=== PATIENT | male | born 1945 | race Caucasian/White ===

== ENCOUNTER 2017-05-05 11:23 | Observation (INO) | payer MEDICARE, BC ==
[2017-05-05] MEDS ORDERED: Heparin 2 UNITS/ML IVPREMIX* 2,000 ML IV ONE (12:44)
[2017-05-05] MEDS ORDERED: Iodixanol* (CONTRAST) 320 MG/ML 100 ML SDV ONE (12:45)
[2017-05-05] MEDS ORDERED: Lidocaine 1% INJ* 10 MG/ML 30 ML SDV ONE (12:46)
[2017-05-05] MEDS ORDERED: fentaNYL* 50 MCG/ML 2 ML VIAL (100 MCG VIAL) ONE ×3 (13:13→16:21)
[2017-05-05] MEDS ORDERED: Naloxone* 0.4 MG/ML 1 ML VIAL ONE (13:13)
[2017-05-05] MEDS ORDERED: Midazolam* 1 MG/ML 5 ML VIAL (5 MG) ONE (13:13)
[2017-05-05] MEDS ORDERED: Heparin(*) 1000 UNIT/ML 10 ML VIAL CATH LAB IV ONE (13:13)
[2017-05-05] MEDS ORDERED: Flumazenil* 0.1 MG/ML 5 ML MDV ONE (13:13)
[2017-05-05] MEDS ORDERED: nitroGLYCERIN DRIP* 250 ML ONE (15:05)
[2017-05-05] MEDS ORDERED: Heparin 2 UNITS/ML IVPREMIX* 1,000 ML IV ONE (16:05)
[2017-05-05] MEDS ORDERED: NS 0.9% 1000 ML* 1,000 ML IV SCH (17:00)
[2017-05-05] MEDS ORDERED: oxyCODONE/Acetamin 5/325 MG* TAB PO PRN (17:02)
[2017-05-05] MEDS ORDERED: Acetaminophen TAB* 325 MG PO PRN (17:02)
[2017-05-05] MEDS ORDERED: Ondansetron TAB* 4 MG PO PRN (17:06)
[2017-05-05] MEDS ORDERED: Hydrocortisone 1% CREAM* 30 GM TUBE TOPICAL PRN (17:06)
[2017-05-05] MEDS ORDERED: Senna TAB PO PRN (17:06)
[2017-05-05] MEDS ORDERED: ALPRAZolam TAB* 0.25 MG PO PRN (17:06)
[2017-05-05] MEDS ORDERED: Docusate CAP* 100 MG PO PRN (17:06)
[2017-05-05] MEDS ORDERED: oxyCODONE/Acetamin 5/325 MG* TAB ONE (17:33)
[2017-05-05] MEDS ORDERED: oxyCODONE TAB* 5 MG TAB PO SCH (21:00)
[2017-05-05] MEDS: Magnesium Oxide TAB* 400 MG PO SCH (21:17)
[2017-05-05] MEDS: DOXYcycline CAP(*) 100 MG PO SCH (21:17)
[2017-05-05] MEDS: diPHENhydraMINE PO* 25 MG PO SCH (21:18)
[2017-05-05] MEDS: Metoprolol Tartrate TAB* 25 MG PO SCH (21:18)
[2017-05-06 06:59] LABS: BUN/Creatinine Ratio 21.1 (8-20); Blood Urea Nitrogen 23 mg/dL (6-24); CO2 Carbon Dioxide 21 mmol/L (22-32); Calcium 8.6 mg/dL (8.6-10.3); Chloride 105 mmol/L (101-111); EGFR African American 85.3 (>60); EGFR Non-African American 66.3 (>60); Glucose 144 mg/dL (70-100); Sodium 133 mmol/L (133-145)
[2017-05-06 07:09] LABS: Anion Gap 7 mmol/L (2-11)
[2017-05-06] MEDS ORDERED: Omeprazole CAP* 20 MG PO SCH (07:30)
[2017-05-06 08:03] VITALS: BP 117/63
[2017-05-06 08:39] LABS: Hematocrit 36 % (42-52); Hemoglobin 11.8 g/dl (14.0-18.0); Mean Corpuscular HGB Conc 33 g/dl (31-36); Mean Corpuscular Hemoglobin 33 pg (27-31); Mean Corpuscular Volume 100 fL (80-94); Mean Platelet Volume 8 um3 (7.4-10.4); Red Blood Count 3.61 10^6/ul (4.0-5.4); Red Cell Distribution Width 15 % (10.5-15); White Blood Count 9.9 10^3/ul (3.5-10.8)
[2017-05-06] MEDS: diPHENhydraMINE PO* 25 MG PO SCH (08:59)
[2017-05-06] MEDS: Metoprolol Tartrate TAB* 25 MG PO SCH (08:59)
[2017-05-06] MEDS: DOXYcycline CAP(*) 100 MG PO SCH (08:59)
[2017-05-06] MEDS: Magnesium Oxide TAB* 400 MG PO SCH (08:59)
[2017-05-06] MEDS ORDERED: Aspirin Low Dose CHEW TAB* 81 MG PO SCH (09:00)
[2017-05-06] MEDS ORDERED: Losartan TAB* 25 MG PO SCH (09:00)
[2017-05-06] MEDS ORDERED: CMCS:SitaGLIPtin (NF) 25 MG TAB PO SCH (09:00)
[2017-05-06] MEDS ORDERED: Furosemide TAB* 20 MG PO SCH (09:00)
[2017-05-06] MEDS ORDERED: Ferrous Sulfate TAB* 325 MG PO SCH (09:00)
[2017-05-06] MEDS ORDERED: Potassium Chlor TAB* 10 MEQ TAB.ER PO SCH (09:00)
[2017-05-06] MEDS ORDERED: Rivaroxaban TAB(*) 20 MG TAB PO SCH (12:00)
--- NOTE | 2017-05-06 12:13 | DS ---
CC: Dr. Sepulveda, [facility] * DATE OF ADMISSION: 05/05/2017. DATE OF DISCHARGE: 05/06/2017. PRIMARY CARE PHYSICIAN: Dr. Sepulveda. DISCHARGE DIAGNOSES: 1. 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 2. Diabetes type 2. 3. Obesity. 4. Peripheral neuropathy. 5. Chronic venous insufficiency. 6. Hypertension. 7. Status post aortic valve replacement. DISCHARGE MEDICATIONS: Prehospital admission medications were all continued. 1. Xanax 0.25 t.i.d. prn. 2. Tylenol 650 q.4 prn. 3. Aspirin 81 mg daily. 4. Doxycycline 100 mg b.i.d. to complete his course. 5. Colace. 6. Iron 325 daily. 7. Lasix 40 mg daily. 8. Hydrocortisone topical. 9. Cozaar 25 daily. 10. Magnesium 400 b.i.d. 11. Metoprolol 25 b.i.d. 12. Omeprazole 40 mg daily. 13. Zofran 4 mg q.8 prn. 14. Potassium 20 mEq daily. 15. Rivaroxaban 20 mg daily. 16. Senna two tabs daily prn. 17. Januvia 50 mg daily. 18. Benadryl 25 mg b.i.d. 19. Oxycodone prn. PROCEDURE: Left leg antegrade puncture with left lower extremity angiography and attempt at angioplasty, unsuccessful due to inability to cross the pedal loop. CONDITION ON DISCHARGE: Stable. ACTIVITY: No heavy lifting for one day. WOUND CARE: Shower only for three days. FOLLOW-UP: Follow-up visit with me on May 13 at 1400, medical office building. HISTORY: See outpatient history and physical. LABORATORY DATA: Creatinine preprocedure was 1.21, at his baseline. Electrolytes normal. Postprocedure creatinine today 1.09. CBC on the : Hemoglobin 13.3, postprocedure 11.8; platelet count is normal. HOSPITAL COURSE: He underwent angiography via the left antegrade femoral approach. Access was obtained with ultrasound and a Doppler needle. It required fairly extensive retraction of his pannus. Angiography demonstrated an occlusion of the distal posterior tibial and an incomplete pedal loop with poor filling of the medial and lateral plantar branches. I attempted to revascularize the pedal loop antegrade with a number of wires and a micro catheter, it was unsuccessful due to inability to cross the pedal loop, and was accompanied by dissection of small distal branches, without occlusion. I also attempted to cross the unfavorable proximal cap of the distal posterior tibial occlusion resulting in perforation and a stain. Revascularization of the plantar was therefore unsuccessful. I will send his films to Dr. Ruiz in [place] for review for potential reattempt at revascularization. He has a nonhealing wound left second toe with MR evidence of osteomyelitis. The concern is that he will not heal the wound, and/or amputation site. [id number]/[facility] #: [id number] [facility]
== END 2017-05-06 12:10 ==
LOC: CHICATH 11:23 → SSU 17:00
PROVIDERS: ADMIT Internal Medicine Cardiovascular Disease; ATTEND Internal Medicine Cardiovascular Disease
DX: I70.245 Atherosclerosis of native arteries of left leg with ulceration of other part of foot (principal); L97.529 Non-pressure chronic ulcer of other part of left foot with unspecified severity; E11.42 Type 2 diabetes mellitus with diabetic polyneuropathy; Z79.4 Long term (current) use of insulin; E66.9 Obesity, unspecified; I87.2 Venous insufficiency (chronic) (peripheral); I10 Essential (primary) hypertension; Z95.2 Presence of prosthetic heart valve; Z79.899 Other long term (current) drug therapy; Z88.1 Allergy status to other antibiotic agents; Z79.01 Long term (current) use of anticoagulants
CPT/HCPCS: 36415; 76937; 80048; 85025; 96360; 96361; A9270-GY; C1725; C1769; C1887; C1894; G0278; G0378; J1644; J2001; J2250; J2310; J3010

== ENCOUNTER 2017-09-30 22:42 | Observation (INO) | payer MEDICARE, BC, OTHER ==
[2017-09-30] MEDS ORDERED: NS 0.9% 1000 ML* 1,000 ML IV ONE (22:56)
[2017-09-30] MEDS ORDERED: Aspirin Low Dose CHEW TAB* 81 MG PO ONE (22:56)
[2017-09-30] MEDS ORDERED: NS 0.9% 1000 ML* 1,000 ML IV SCH ×2 (23:00→23:48)
[2017-09-30 23:25] LABS: Hematocrit 38 % (42-52); Hemoglobin 12.5 g/dl (14.0-18.0); Mean Corpuscular HGB Conc 33 g/dl (31-36); Mean Corpuscular Hemoglobin 32 pg (27-31); Mean Corpuscular Volume 97 fL (80-94); Mean Platelet Volume 8 um3 (7.4-10.4); Red Cell Distribution Width 15 % (10.5-15); White Blood Count 9.4 10^3/ul (3.5-10.8)
[2017-09-30 23:40] LABS: Albumin 3.7 g/dL (3.2-5.2); Calcium 9.5 mg/dL (8.6-10.3); EGFR African American 66.4 (>60); EGFR Non-African American 51.7 (>60); Globulin 3.9 g/dL (2-4); HDL Cholesterol 28.8 mg/dL; Total Bilirubin 0.4 mg/dL (0.2-1.0); Total Protein 7.6 g/dL (6.4-8.9)
[2017-09-30 23:41] LABS: Troponin I 0.03 ng/mL (<0.04)
[2017-10-01 00:17] LABS: Urine Bilirubin Negative (Negative); Urine Glucose Negative (Negative); Urine Nitrite Negative (Negative)
[2017-10-01 00:23] LABS: Potassium 4.2 mmol/L (3.5-5.0)
[2017-10-01] MEDS ORDERED: Dextrose 50% Syringe 50 ML* 25 GM/50 ML SYRINGE IV PUSH PRN (01:29)
[2017-10-01] MEDS ORDERED: NS 0.9% 1000 ML* 1,000 ML IV SCH (01:30)
[2017-10-01] MEDS ORDERED: Senna TAB PO PRN (01:30)
[2017-10-01] MEDS ORDERED: oxyCODONE TAB* 5 MG TAB PO PRN (01:30)
[2017-10-01] MEDS ORDERED: Morphine INJ* 2 MG/ML 1 ML SYRINGE (TWO MG - NEW SYRINGE VERSION) IV PRN (01:40)
[2017-10-01] MEDS ORDERED: Acetaminophen TAB* 325 MG PO PRN (01:40)
[2017-10-01 01:57] LABS: C Reactive Protein 42.75 mg/L (< 5.00)
[2017-10-01] MEDS ORDERED: Triamcinolone 0.5% OINT * 15 GM TUBE TOPICAL PRN (02:00)
[2017-10-01 03:58] LABS: Hematocrit 36 % (42-52); Hemoglobin 11.5 g/dl (14.0-18.0); Mean Corpuscular HGB Conc 32 g/dl (31-36); Mean Corpuscular Hemoglobin 32 pg (27-31); Mean Corpuscular Volume 99 fL (80-94); Mean Platelet Volume 8 um3 (7.4-10.4); Red Blood Count 3.61 10^6/ul (4.0-5.4); Red Cell Distribution Width 15 % (10.5-15); White Blood Count 8.5 10^3/ul (3.5-10.8)
[2017-10-01 04:11] LABS: BUN/Creatinine Ratio 21.1 (8-20); Calcium 9.1 mg/dL (8.6-10.3); EGFR Non-African American 57.5 (>60); HDL Cholesterol 26.9 mg/dL; Potassium 4.4 mmol/L (3.5-5.0)
--- NOTE | 2017-10-01 04:37 | ED ---
Rachel Pierson Edward, scribed for Dick Blanchard MD on 09/30/17 at 2248 . Neurological HPI - HPI Summary HPI Summary: 72 male BIBA c/o sudden onset L arm numbness at 22:10 tonight. The symptoms started after the pt did some work. He was sitting down, then stood up and experienced the L arm numbness. Associated sx: later the pt c/o slurred speech. Currently the pt's symptoms have resolved - he states his arm is feeling better and his speech is also no longer slurred. PMHx AFIB, DM, aortic stenosis. Pt is on Xarelto. Sx aortic valve replacement. - History of Current Complaint Stated Complaint: STROKE LIKE SYMPTOMS Hx Obtained From: Patient Onset/Duration: Sudden Onset, Started hours ago Current Severity: None Neurological Deficit Location: LUE Aggravating: Nothing Alleviating: Nothing Associated Signs and Symptoms: Positive: Impaired Speech - Additional Pertinent History Primary Care Physician: [id number] - Allergy/Home Medications Allergies/Adverse Reactions: Allergies Allergy/AdvReac Type Severity Reaction Status Date / Time Levofloxacin [From Levaquin] Allergy Unknown Verified 02/25/17 10:22 Reaction Details Home Medications: Home Medications Furosemide TAB* [Lasix TAB*] 80 mg PO SEE INSTRUCTIONS 10/01/17 [History Confirmed 10/01/17] Triamcinolone 0.5% CREAM(NF) [Triamcinolone 0.5% CREAM*] 1 applic TOPICAL QID [History Confirmed 10/01/17] metFORMIN* [Glucophage 1000 MG TAB *] 1,000 mg PO BID 10/01/17 [History Confirmed 10/01/17] PMH/Surg Hx/FS Hx/Imm Hx Previously Healthy: No Endocrine/Hematology History: Reports: Hx Diabetes - TYPE 2 Denies: Hx Anticoagulant Therapy, Hx Blood Disorders, Hx Blood Transfusions, Hx Bone Marrow Disease, Hx Systemic Lupus Erythematosus, Hx Sickle Cell Disease , Hx Thyroid Disease, Hx Anemia, Hx Unexplained Bleeding, Other Endocrine/ Hematological Disorders Cardiovascular History: Reports: Hx Deep Vein Thrombosis - 2001, Hx Hypertension - ON MED, Other Cardiovascular Problems/Disorders - CHF, ATRIAL FLUTTER, SEVERE AORTIC STENOSIS-SEES DR. GRAHAM Denies: Hx Aneurysm, Hx Angina, Hx Angioplasty, Hx Auto Implanted Cardiovert Defib, Hx Cardiac Arrest, Hx Cardiomegaly, Hx Congenital Heart Disease, Hx Congestive Heart Failure, Hx Coronary Artery Disease, Hx Embolism, Hx Hypercholesterolemia, Hx Hypotension, Hx Pacemaker/ICD, Hx Peripheral Vascular Disease, Hx Rheumatic Fever, Hx Syncope, Hx Valvular Heart Disease Respiratory History: Reports: Hx Pneumonia, Hx Pulmonary Edema - APRIL 2015, Other Respiratory Problems/Disorders - SEPSIS / PNEUMONIA-APRIL 2015 Denies: Hx Asthma, Hx Chronic Bronchitis, Hx Chronic Obstructive Pulmonary Disease (COPD), Hx Cystic Fibrosis, Hx Lung Cancer, Hx Pleural Effusion, Hx Pulmonary Embolism, Hx Seasonal Allergies, Hx Sleep Apnea GI History: Denies: Hx Cirrhosis, Hx Crohn's Disease, Hx Diverticulosis, Hx Gall Bladder Disease, Hx Gastroesophageal Reflux Disease, Hx Gastrointestinal Bleed, Hx Hiatal Hernia, Hx Irritable Bowel, Hx Jaundice, Hx Obstructive Bowel, Hx Ileostomy, Hx Pyloric Stenosis, Hx Ulcer, Other GI Disorders History: Reports: Hx Acute Renal Failure, Hx Kidney Stones - LEFT SIDE- CURRENTLY-NOT BOTHERING HIM, Hx Renal Disease - KIDNEY STONES Denies: Hx Benign Prostatic Hyperplasia, Hx Chronic Renal Failure, Hx Dialysis, Hx Kidney Infection, Other Problems/Disorders Musculoskeletal History: Reports: Hx Arthritis - BILAT HIP REPLACEMENT/RIGHT NEEDS TO BE REDONE, Hx Back Problems - chronic back pain Denies: Hx Bursitis, Hx Congenital Bone Abnormalities, Hx Fibromyalgia, Hx Gout, Hx Orthopedic Injury, Hx Osteoporosis, Hx Scoliosis, Hx Tendonitis, Other Musculoskeletal History Sensory History: Reports: Hx Cataracts - BILAT., Hx Contacts or Glasses - GLASSES, Hx Macular Degeneration, Hx Vision Problem, Other Sensory Impairments - 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 Denies: Hx Dementia, Hx Developmental Delay, Hx Headaches, Hx Migraine, Hx Nerve Disease, Hx Seizures, Hx Transient Ischemic Attacks (TIA) Psychiatric History: Denies: Hx Anxiety, Hx Attention Deficit Hyperactivity Disorder, Hx Eating Disorder, Hx Depression, Hx Panic Disorder, Hx Post Traumatic Stress Disorder, Hx Inpatient Treatment, Hx Community Mental Health Tx, Hx Schizophrenia, Hx Bipolar Disorder, Hx Suicide Attempt, Hx of Violent Episodes Against Others, Hx Substance Abuse, Other Psychiatric Issues/Disorders - Surgical History Surgery Procedure, Year, and Place: Bilateral hip replacement 2001, 2002. HEART VALVE REPLACEMENT- TRIFECTA TISSUE HEART VALVE Hx Anesthesia Reactions: No Infectious Disease History: Denies: Hx Clostridium Difficile, Hx Hepatitis, Hx Human Immunodeficiency Virus (HIV), Hx of Known/Suspected MRSA, Hx Shingles, Hx Tuberculosis, Hx Known/ Suspected VRE, Hx Known/Suspected VRSA - Family History Known Family History: Positive: Other - Negative: anaestethic reaction - Social History Alcohol Use: None Substance Use Type: Reports: None Smoking Status (MU): Never Smoked Tobacco Have You Smoked in the Last Year: No Review of Systems Constitutional: Negative Eyes: Negative ENT: Negative Cardiovascular: Negative Respiratory: Negative Gastrointestinal: Negative Genitourinary: Negative Musculoskeletal: Negative Skin: Negative Positive: Numbness - L arm, Slurred Speech Psychological: Normal All Other Systems Reviewed And Are Negative: Yes Physical Exam Triage Information Reviewed: Yes Vital Signs On Initial Exam: Initial Vitals Temp Pulse Resp BP Pulse Ox 37.1 C 94 16 158/83 96 09/30/17 22:42 09/30/17 22:42 09/30/17 22:42 09/30/17 22:42 09/30/17 22:42 Vital Signs Reviewed: Yes Appearance: Positive: Well-Appearing, No Pain Distress Skin: Positive: Warm, Skin Color Reflects Adequate Perfusion, Dry, Other - Sternotomy scar. Chronic dermatitis @ legs. Head/Face: Positive: Normal Head/Face Inspection Eyes: Positive: EOMI, EM ENT: Positive: Normal ENT inspection Neck: Positive: Supple, Nontender, Other: - No JVD, no bruits. Respiratory/Lung Sounds: Positive: Clear to Auscultation, Breath Sounds Present Cardiovascular: Positive: Pulses are Symmetrical in both Upper and Lower Extremities, IRR Abdomen Description: Positive: Nontender, Soft Bowel Sounds: Positive: Present Musculoskeletal: Positive: Strength/ROM Intact, Other - Mild non-pitting bilateral pedal edema. Pain in hips with straight leg raise Neurological: Positive: Normal, Sensory/Motor Intact Diagnostics - Vital Signs Vital Signs Temp Pulse Resp BP Pulse Ox 10/01/17 00:00 88 17 93 09/30/17 23:00 88 15 100 09/30/17 22:48 95 22 158/83 100 09/30/17 22:42 37.1 C 94 16 158/83 96 - Laboratory Lab Results: Lab Results 09/30/17 09/30/17 09/30/17 Range/Units 23:11 23:11 23:11 WBC 9.4 (3.5-10.8) 10^3/ul RBC 3.90 L (4.0-5.4) 10^6/ul Hgb 12.5 L (14.0-18.0) g/dl Hct 38 L (42-52) % MCV 97 H (80-94) fL MCH 32 H (27-31) pg MCHC 33 (31-36) g/dl RDW 15 (10.5-15) % Plt Count 298 (150-450) 10^3/ul MPV 8 (7.4-10.4) um3 Neut % (Auto) 64.4 (38-83) % Lymph % (Auto) 18.2 L (25-47) % Payne % (Auto) 13.0 H (1-9) % Eos % (Auto) 3.8 (0-6) % Baso % (Auto) 0.6 (0-2) % Absolute Neuts (auto) 6.0 (1.5-7.7) 10^3/ul Absolute Lymphs (auto) 1.7 (1.0-4.8) 10^3/ul Absolute Monos (auto) 1.2 H (0-0.8) 10^3/ul Absolute Eos (auto) 0.4 (0-0.6) 10^3/ul Absolute Basos (auto) 0.1 (0-0.2) 10^3/ul Absolute Nucleated RBC 0.01 10^3/ul Nucleated RBC % 0.1 INR (Anticoag Therapy) 2.18 H (0.77-1.02) APTT 42.0 H (26.0-36.3) seconds Sodium 136 (133-145) mmol/L Potassium 4.2 (3.5-5.0) mmol/L Chloride 99 L (101-111) mmol/L Carbon Dioxide 24 (22-32) mmol/L Anion Gap 13 H (2-11) mmol/L BUN 27 H (6-24) mg/dL Creatinine 1.35 H (0.67-1.17) mg/dL Est GFR ( Amer) 66.4 (>60) Est GFR (Non-Af Amer) 51.7 (>60) BUN/Creatinine Ratio 20.0 (8-20) Glucose 201 H (70-100) mg/dL Lactic Acid (0.5-2.0) mmol/L Calcium 9.5 (8.6-10.3) mg/dL Total Bilirubin 0.40 (0.2-1.0) mg/dL AST 19 (13-39) U/L ALT 16 (7-52) U/L Alkaline Phosphatase 94 (34-104) U/L Troponin I 0.03 (<0.04) ng/mL C-Reactive Protein 42.75 H (< 5.00) mg/L Total Protein 7.6 (6.4-8.9) g/dL Albumin 3.7 (3.2-5.2) g/dL Globulin 3.9 (2-4) g/dL Albumin/Globulin Ratio 0.9 L (1-3) Triglycerides 210 mg/dL Cholesterol 130 mg/dL LDL Cholesterol 59 mg/dL HDL Cholesterol 28.8 mg/dL Urine Color Urine Appearance Urine pH (5-9) Ur Specific Duvall (1.010-1.030) Urine Protein (Negative) Urine Ketones (Negative) Urine Blood (Negative) Urine Nitrate (Negative) Urine Bilirubin (Negative) Urine Urobilinogen (Negative) Ur Leukocyte Esterase (Negative) Urine Glucose (Negative) Urine Ascorbic Acid (Negative) 09/30/17 09/30/17 Range/Units 23:11 23:55 WBC (3.5-10.8) 10^3/ul RBC (4.0-5.4) 10^6/ul Hgb (14.0-18.0) g/dl Hct (42-52) % MCV (80-94) fL MCH (27-31) pg MCHC (31-36) g/dl RDW (10.5-15) % Plt Count (150-450) 10^3/ul MPV (7.4-10.4) um3 Neut % (Auto) (38-83) % Lymph % (Auto) (25-47) % Payne % (Auto) (1-9) % Eos % (Auto) (0-6) % Baso % (Auto) (0-2) % Absolute Neuts (auto) (1.5-7.7) 10^3/ul Absolute Lymphs (auto) (1.0-4.8) 10^3/ul Absolute Monos (auto) (0-0.8) 10^3/ul Absolute Eos (auto) (0-0.6) 10^3/ul Absolute Basos (auto) (0-0.2) 10^3/ul Absolute Nucleated RBC 10^3/ul Nucleated RBC % INR (Anticoag Therapy) (0.77-1.02) APTT (26.0-36.3) seconds Sodium (133-145) mmol/L Potassium (3.5-5.0) mmol/L Chloride (101-111) mmol/L Carbon Dioxide (22-32) mmol/L Anion Gap (2-11) mmol/L BUN (6-24) mg/dL Creatinine (0.67-1.17) mg/dL Est GFR ( Amer) (>60) Est GFR (Non-Af Amer) (>60) BUN/Creatinine Ratio (8-20) Glucose (70-100) mg/dL Lactic Acid 5.2 H* (0.5-2.0) mmol/L Calcium (8.6-10.3) mg/dL Total Bilirubin (0.2-1.0) mg/dL AST (13-39) U/L ALT (7-52) U/L Alkaline Phosphatase (34-104) U/L Troponin I (<0.04) ng/mL C-Reactive Protein (< 5.00) mg/L Total Protein (6.4-8.9) g/dL Albumin (3.2-5.2) g/dL Globulin (2-4) g/dL Albumin/Globulin Ratio (1-3) Triglycerides mg/dL Cholesterol mg/dL LDL Cholesterol mg/dL HDL Cholesterol mg/dL Urine Color Yellow Urine Appearance Clear Urine pH 5.0 (5-9) Ur Specific Duvall 1.010 (1.010-1.030) Urine Protein Negative (Negative) Urine Ketones Negative (Negative) Urine Blood Negative (Negative) Urine Nitrate Negative (Negative) Urine Bilirubin Negative (Negative) Urine Urobilinogen Negative (Negative) Ur Leukocyte Esterase Negative (Negative) Urine Glucose Negative (Negative) Urine Ascorbic Acid * H (Negative) Result Diagrams: 10/01/17 03:49 10/01/17 03:49 Lab Statement: Any lab studies that have been ordered have been reviewed, and results considered in the medical decision making process. - Radiology CXR Xray Interpretation: No Acute Changes - Prosthetic valve. No acute infiltrate. Radiology Interpretation Completed By: ED Physician - CT BRAIN CT CT Interpretation: No Acute Changes - Involutional changes. 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 No acute or subacute infarct is identified. Please note that infarcts less thatn 6 hours from onset may not be visible on CT. MRI si more sensitive. No mass. No shift or herniation. No hemorrhage. Osseous structures are intact. CT Interpretation Completed By: Radiologist - ED PHYSICIAN REVIEWS AND AGREES - Additional Comments Diagnostic Additional Comments: EKG - 22:54 - AFIB @ 91 BPM. Normal axis. RBBB. Non-specific ST changes. NIH Scale - NIH Scale Level of Consciousness: Alert/Keenly Responsive Ask Patient the Month and His/Her Age: Both Correct Ask Pt to Open/Close Eyes and Cdl Company Driver/Release Non-Paretic Hand: Both Correctly Best Gaze (Only Horizontal Eye Movement): Normal Visual Field Testing: No Visual Loss Facial Paresis-Pt to Smile & Close Eyes or Grimace Symmetry: Normal/Symmetrical Motor Function - Right Arm: No Drift-Holds 10 Seconds Motor Function - Left Arm: No Drift-Holds 10 Seconds Motor Function - Right Leg: No Drift-Holds 10 Seconds Motor Function - Left Leg: No Drift-Holds 10 Seconds Limb Ataxia-Must be out of Proportion to Weakness Present: Absent Sensory (Use Pinprick to Test Arms/Legs/Trunk/Face): Normal Best Language (Describe Picture, Name Items): No Aphasia Dysarthria (Read Several Words): Normal Extinction and Inattention: No Abnormality Total Score: 0 Re-Evaluation - Re-Evaluation First Eval Change: Unchanged - pt remained without neuro deficit here Course/Dx - Course Course Of Treatment: Pt with abrupt onset of neuro sx but with full recovery to baseline prior to arrival. NIHSS 0. CT neg. On Xarelto. ASA and fluids given here. Admit for further. - Differential Dx Differential Diagnoses Neuro: Positive: Hypovolemia, Transient Ischemic Attack - Diagnoses Provider Diagnoses: TIA (transient ischemic attack), Lactic acidosis, Type 2 diabetes mellitus - Physician Notifications Discussed Care Of Patient With: Zainab Azevedo Time Discussed With Above Provider: 00:43 Instructed by Provider To: Admit As Inpatient Discharge - Discharge Plan Condition: Good Disposition: ADMITTED TO [facility] documentation as recorded by the Rachel daniels Edward accurately reflects the service I personally performed and the decisions made by , Dick Blanchard MD.
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
[2017-10-01] MEDS ORDERED: Omeprazole CAP* 20 MG PO SCH (07:30)
--- NOTE | 2017-10-01 08:01 | RAD ---
INDICATION: CVA COMPARISON: February 25, 2017 TECHNIQUE: An AP portable view obtained at 2328 hours is submitted. FINDINGS: Bones/Soft Tissues: There are no acute bony findings. There is sternotomy Cardiomediastinal: The cardiomediastinal silhouette is normal. Lungs: There are no infiltrates. Pleura: There are no pleural effusions. Other: None IMPRESSION: NO ACTIVE DISEASE.
--- NOTE | 2017-10-01 08:10 | RAD ---
INDICATION: LEFT hand weakness, difficulty with speech. Stroke symptoms. COMPARISON: No relevant prior exams available on the [facility] PACS for comparison. Technique: Noncontrast CT vertex of skull through foramen magnum. Report: 2.5 x 2.3 cm region of encephalomalacia at the posterior inferior confluence of the RIGHT temporal and parietal lobes. No additional ramos matter white matter obscuration evident. Negative for intra or extra-axial hemorrhage. Negative for mass effect. Moderately severe prominence of the cerebral sulci and moderate prominence of the cerebellar fissures. Unremarkable ventricles and basal cisterns. Unremarkable orbital contents. No suspicious calvarial or skull base lesion evident. Clear nasal sinuses and mastoid air spaces. Unremarkable scalp. IMPRESSION: 1. Encephalomalacia at the posterior inferior confluence of the RIGHT temporal and parietal lobes most consistent with a chronic infarct. 2. Negative for intracranial hemorrhage. 3. Involutional change.
[2017-10-01] MEDS: Ascorbic Acid TAB* 500 MG PO SCH ×2 (08:59→19:27)
[2017-10-01] MEDS: Metoprolol Tartrate TAB* 25 MG PO SCH ×2 (09:00→19:27)
[2017-10-01] MEDS ORDERED: Rivaroxaban TAB(*) 20 MG TAB PO SCH (09:00)
[2017-10-01] MEDS ORDERED: Potassium Chlor TAB* 20 MEQ TAB.ER PO SCH (09:00)
[2017-10-01] MEDS ORDERED: Furosemide TAB* 40 MG PO SCH (09:00)
[2017-10-01] MEDS ORDERED: Aspirin Low Dose CHEW TAB* 81 MG PO SCH (09:00)
[2017-10-01] MEDS ORDERED: Ferrous Sulfate TAB* 325 MG PO SCH (09:00)
[2017-10-01] MEDS ORDERED: Losartan TAB* 25 MG PO SCH (09:00)
[2017-10-01] MEDS ORDERED: Cyanocobalamin TAB* 500 MCG PO SCH (09:00)
[2017-10-01] MEDS: Magnesium Oxide TAB* 400 MG PO SCH ×2 (09:03→19:27)
[2017-10-01] MEDS: Insulin LISPRO* 1 UNITS UNIT SUBCUT SCH ×3 (09:04→17:47)
--- NOTE | 2017-10-01 11:03 | ECHO ---
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 Technical Comments: The study quality is poor. The study is technically limited due to poor acoustic windows. The study is technically limited due to patient body habitus. Completed at 1020. Left Ventricle: The left ventricular chamber size is normal. Mild concentric left ventricular hypertrophy is observed. Global left ventricular wall motion and contractility are within normal limits. There is normal left ventricular systolic function. The estimated ejection fraction is 60-65%. Ventricular septal wall motion has a post-operative appearance. The assessment of diastolic function is non-diagnostic. Left Atrium: The left atrium is moderate to severely dilated. Right Ventricle: The right ventricle is mildly dilated. The right ventricular global systolic function is mildly reduced. Right Atrium: The right atrium is mildly dilated. Interatrial septum appears intact without evidence of shunting. The bubble study is negative. A patent foramen ovale is not demonstrated with color Doppler and agitated contrast. Aortic Valve: There is no evidence of aortic stenosis. The mean gradient of the aortic valve is 9.67 mmHg. vmax 1.9 m/s A bio-prosthetic aortic valve is present. trifecta #[id number] pericardial by hisotry The bio-prosthetic aortic valve appears to be functioning normally. Mitral Valve: Moderate mitral annular calcification present.calcified chordae tendinae The mitral valve leaflets are mildly thickened. There is mild mitral regurgitation. There is mild to moderate mitral stenosis. mean gradient 7 mmHg on average while in atrial fibrillation at 70 bpm, peak E wave velocity 2.3 m/s Tricuspid Valve: The tricuspid valve leaflets are normal. There is mild tricuspid regurgitation. There is evidence of mild pulmonary hypertension. There is no tricuspid stenosis. Pulmonic Valve: The pulmonic valve appears normal. There is a trace pulmonic regurgitation. There is no pulmonic stenosis. Pericardium: There is no significant pericardial effusion. A pericardial fat pad is visualized. Aorta: There is mild dilatation of the ascending aorta. The aortic arch is not well visualized. The aortic root is normal in size. Pulmonary Artery: The main pulmonary artery is not well visualized. Venous: The inferior vena cava is dilated. There is a greater than 50% respiratory change in the inferior vena cava dimension. Contrast: Normal saline was used as contrast for the bubble study. Images 30 and 31. Intravenous contrast was used to help determine presence of intracardiac shunting. Conclusions The left ventricular chamber size is normal. Mild concentric left ventricular hypertrophy is observed. There is normal left ventricular systolic function. The estimated ejection fraction is 65%. The left atrium is moderate to severely dilated. The right ventricle is mildly dilated. The right ventricular global systolic function is mildly reduced. A bio-prosthetic aortic valve is present that is not well visualized but appears to be functioning normally. There is mild to moderate non-rheumatic mitral stenosis. There is evidence of mild pulmonary hypertension. There is mild dilatation of the ascending aorta. The agitated saline bubble study is negative. Compared to prior study from 01/2016, velocity and mean gradient across the mitral valve have increased, the estimated PASP is now abnormal. Measurements Name Value Normal Range RVIDd (AP) 2D 3.9 cm (0.9 - 2.6) RVDdMajor (2D) 5 cm (2.2 - 4.4) RA (A4C)W 5.5 cm (2.9 - 4.6) IVSd (2D) 1.1 cm (0.6 - 1) LVPWd (2D) 1.1 cm (0.6 - 1) LVIDd (2D) 4.8 cm (3.6 - 5.4) LVIDs (2D) 3.5 cm - LV FS (2D) 27 % (25 - 45) Aortic Annulus 1.5 cm (1.4 - 2.6) Ao root diameter (2D) 3.4 cm (2.1 - 3.5) Ascending Ao 3.7 cm (2.1 - 3.4) LA dimension (AP) 2D 4.7 cm (2.3 - 3.8) LAd ISD 4CH 6.3 cm (2.9 - 5.3) LA ISD 4CH W 5 cm (2.5 - 4.5) Name Value Normal Range LA ESV SP 4CH (MOD) 91 ml - Name Value Normal Range MV E-wave Vmax 1.2 m/sec - MV deceleration time 230.7 msec - LV septal e' Vmax 0.07 m/sec - LV lateral e' Vmax 0.1 m/sec - LV E:e' septal ratio 17.14 ratio - LV E:e' lateral ratio 12 ratio - Name Value Normal Range AV Vmax 1.9 m/sec - AV VTI 37.76 cm - AV peak gradient 13.9 mmHg - AV mean gradient 9.67 mmHg - LVOT diameter 2 cm - LVOT Vmax 1.07 m/sec - LVOT VTI 20.75 cm - LVOT peak gradient 4.64 mmHg - LVOT mean gradient 2.66 mmHg - KAMRYN (continuity Vmax) 1.8 cm2 - KAMRYN (continuity VTI) 1.7 cm2 - Name Value Normal Range MV Vmax 2.3 m/sec - MV VTI 45.43 cm - MV peak gradient 21.27 mmHg - MV mean gradient 7.32 mmHg - MV PHT 61.78 msec - MVA (continuity VTI) 1.45 cm2 - Name Value Normal Range TR Vmax 3 m/sec - TR peak gradient 36 mmHg - IVC diameter 2.2 cm - Name Value Normal Range PV Vmax 0.88 m/sec - PV peak gradient 3.07 mmHg -
--- NOTE | 2017-10-01 12:02 | RAD ---
INDICATION: TIA evaluate for carotid stenosis. COMPARISON: Comparison is made with a prior study from April 15, 2005. TECHNIQUE: Multiple grayscale, color and Doppler tracings of the common, internal and external carotid and vertebral arteries were obtained. Stenosis estimations reflect velocity criteria that it been correlated to angiographic stenosis calculations based on the distal internal carotid diameter. RIGHT CAROTID: There is mild hyperechoic plaque within the right carotid bulb and proximal internal carotid artery. The peak systolic velocity in the proximal right internal carotid artery is 78 cm/s and the maximum end-diastolic velocity is 16 cm/s. The peak systolic velocity in the distal right common carotid artery is 78 cm/s and the maximum end-diastolic velocity is 19 cm/s. The internal to common carotid artery ratio is 1.0. This would be consistent with a less than 50% stenosis. LEFT CAROTID: There is mild homogeneous plaque within the left ] bulb. The peak systolic velocity in the proximal left internal carotid artery is 83 cm/s and the maximum end-diastolic velocity is 26 cm/s. The peak systolic velocity in the distal left common carotid artery is 78 cm/s and the maximum end-diastolic velocity is 17 cm/s. The internal to common carotid artery ratio is 1.1. This would be consistent with a less than 50% stenosis. VERTEBRALS: There is antegrade flow in both vertebral arteries. IMPRESSION: THERE IS MILD PLAQUE PRESENT IN THE CAROTID BULBS AND PROXIMAL INTERNAL CAROTID ARTERIES. NO HEMODYNAMICALLY SIGNIFICANT STENOSIS IS PRESENT. CPT II Codes: 3100F
[2017-10-01 15:40] VITALS: BP 114/58
--- NOTE | 2017-10-01 15:51 | RAD ---
INDICATION: TIA. Evaluate for CVA. COMPARISON: CT brain September 30, 2017 TECHNIQUE: sagittal T1 FLAIR, axial diffusion, axial T1 FLAIR, axial T2, axial T2 FLAIR, and SWI images were acquired. FINDINGS: Craniocervical junction: The craniocervical junction appears normal. Ventricles/sulci: The ventricles and cisterns are normal in size and configuration for age. Brain parenchyma: Diffusion images show a small focus of cortical ischemia in the right parietal lobe near the vertex. The diffusion images otherwise normal. There are other no acute focal parenchymal abnormalities. There is a area of encephalomalacia in the posterior right temporal lobe/inferior right parietal lobe as described in the CT study. There is no evidence of intracranial mass or mass effect. Intracranial hemorrhage: There is no intracranial hemorrhage. Extra-axial spaces: There are no extra-axial fluid collections or masses. Orbits: There are no MR abnormalities of the orbital structures. Paranasal sinuses/mastoid: The paranasal sinuses are clear. The mastoid air cells are well aerated.. Vascular: No abnormalities are seen. Other: None IMPRESSION: SMALL, NONHEMORRHAGIC CORTICAL INFARCT RIGHT PARIETAL REGION . OLD RIGHT HEMISPHERIC INFARCT.
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
--- NOTE | 2017-10-01 19:26 | DS ---
CC: Dr. Azevedo; Dr. Alvarado; Dr. Tam DISCHARGE SUMMARY: DATE OF ADMISSION: 10/01/17 DATE OF DISCHARGE: 10/01/17 PRIMARY CARE PROVIDER: Dr. Azevedo. CONSULTING NEUROLOGIST: Dr. Alvarado. THERAPIST PHYS: Dr. Tam. DISCHARGE DIAGNOSIS: Small right parietal cerebrovascular accident. SECONDARY DIAGNOSES: 1. Pulmonary embolism. 2. Escherichia coli pneumonia. 3. Severe aortic stenosis status post transcatheter aortic valve replacement complicated by aortic d issection requiring open surgery for repair and placement of a bioprosthetic aortic valve. 4. Atrial flutter. 5. Right hip surgery complicated by wound infection. 6. Left first and second toe osteomyelitis. 7. Peripheral arterial disease. 8. Type 2 diabetes. 9. Hypertension. 10. Chronic back pain. 11. Venous stasis. 12. Nephrolithiasis. MEDICATIONS: 1. Acetaminophen 1000 mg p.o. q.8 hours p.r.n. pain or fever. 2. Vitamin C 500 mg p.o. b.i.d. 3. Aspirin 81 mg p.o. daily. 4. Vitamin D 5000 units p.o. daily. 5. Vitamin B12 1000 mcg p.o. daily. 6. Benadryl 25 mg p.o. b.i.d. 7. Ferrous sulfate 325 mg p.o. daily. 8. Furosemide 80 mg p.o. on Mondays, Wednesdays and Fridays and 40 mg on Sundays, Tuesdays, s and Saturdays. 9. Losartan 25 mg p.o. daily. 10. Magnesium oxide 400 mg p.o. b.i.d. 11. Metformin 1000 mg p.o. b.i.d. 12. Metoprolol tartrate 25 mg p.o. b.i.d. 13. Omeprazole 20 mg p.o. daily. 14. Oxycodone 5 mg p.o. q. 4 hours p.r.n. pain and 5 mg p.o. at bedtime. 15. Potassium chloride 20 mEq p.o. daily. 16. Xarelto 20 mg p.o. daily. 17. Senna two tablets p.o. daily as needed for constipation. 18. Januvia 50 mg p.o. daily. 19. Triamcinolone 0.5% cream to affected areas topical four times a day. HOSPITAL COURSE: Mr. Cardoza is a 72 years old male with a complex past medical history as described a curt that presented from [facility] to the emergency room due to an episode of left ar m numbness and slurred speech. By the time [facility], his symptoms were alread y improving and by the time, he got to the emergency room they have already resolved. For more detai ls about his presentation, I refer you to his history and physical. The patient was admitted under the impression of a TIA for further workup. He had a CT of the brain that showed encephalomalacia of the posterior inferior confluence of the rig ht temporal and parietal lobes most consistent with a chronic infarct. Negative for intracranial hem orrhage, only involutional change. Chest x- ray showed no active disease, and a transthoracic echoca rdiogram showed ejection fraction of 65% with a bioprosthetic aortic valve that is not well visualize d, but appears to be functioning normally, [id number] mitral stenosis, mild pulmonary hypertens ion, and bubble study was negative. Carotid Doppler showed mild plaque present in the carotid bulbs and proximal internal carotid arteries, but no hemodynamically significant stenosis was present. The MRI of the brain without contrast showed small known hemorrhagic cortical infarct in the right pa rietal region and an old right hemispheric infarct. The patient was seen in consultation by Neurology (Dr. Alvarado) and his impression is that the patien t most likely had a right hemispheric stroke (at that time the MRI was not yet available). He has ri ght hemispheric stroke, which looks much older than would be expected with this fairly rapid presenta tion and so I suspect that has been there and was asymptomatic. Seizure seems to be unlikely as he s eems to have good recollection of the entire event, and an EEG was performed and it was negative. Dr. Alvarado noted that the patient is already on Xarelto and aspirin and he did not think there was a nything further that could really be done in terms of antiplatelet or anticoagulant therapy as he fel t he would just increase the risk of bleeding with no further benefit. In addition, he has osteomyel itis and apparently is going to require surgeries further increasing his risks. With this stroke, any surgical plans should be postponed at this time until the patient is deemed saf e for surgery by Neurology. The patient is medically stable for discharge today on unchanged medications from admission. Dr. Gaf grajeda plans to discuss this case with Dr. Tam to see if changing his aspirin to Aggrenox would prov nedra any benefit, but at this point, the recommendation is to continue aspirin and Xarelto. The patient is medically stable for discharge at this time. PHYSICAL EXAMINATION: Vital Signs: Temperature 97.6, heart rate is 75, respiratory rate is 16, oxyg en saturation is 100% on room air, blood pressure is 114/58. General: The patient is a pleasant whi te male sitting up in the bed in no acute distress. CVS: Normal S1 and S2. Regular rate and rhythm . Chest: Breath sounds present bilaterally with no added sounds. Neuro: He is alert and oriented x3. Face is symmetric. His speech is clear. Extremities: He is able to move all 4 extremities. S trength is equal, but he does have limited range of motion on his right shoulder. DIET: Heart healthy consistent carb diet. ACTIVITIES: As tolerated. DISPOSITION: To [facility]. STATUS WHILE IN THE HOSPITAL: Observation. Please keep in mind this is a summarized version of this patient's hospital stay. If you need more in formation, please feel free to call me at [phone] or please obtain the full medical records. TIME SPENT: Appropriately 45 minutes was spent to complete the discharge. [id number]/[facility] #: [id number]
[2017-10-01] MEDS ORDERED: oxyCODONE TAB* 5 MG TAB PO SCH (21:00)
--- NOTE | 2017-10-02 14:33 | EEG ---
ELECTROENCEPHALOGRAM: DATE OF STUDY: 10/01/17 LOCATION: He is in room 432 REFERRING PHYSICIAN: Zainab Azevedo MD. CLINICAL PROBLEM: Left-sided numbness and weakness of hand and face and slurred speech. Rule out se izures. The patient is on Xarelto, aspirin, Prilosec, insulin, oxycodone, Lopressor, morphine. REPORT: This 16-channel EEG is remarkable for background rhythms at the onset of the tracing consist ing of a well-formed alpha rhythm and occipital derivations at about 8-1/2 to 9 cycles per second, wh ich is fairly symmetric. The patient drowses intermittently throughout the recording with vertex slo wing and bitemporal slowing. Occasionally, there were some vertex sharp waves. There may be some trevor imentary sleep spindles briefly. Activation procedure is not attempted. There are no focal, lateral ized or epileptiform abnormalities. CLINICAL IMPRESSION: Normal awake and asleep EEG. [id number] #: [id number]
== END 2017-10-01 19:00 ==
LOC: ED 22:42 → MEDTELE 10-01 01:19
PROVIDERS: ADMIT Internal Medicine; ATTEND Internal Medicine
DX: I63.9 Cerebral infarction, unspecified (principal); Z86.711 Personal history of pulmonary embolism; Z79.01 Long term (current) use of anticoagulants; I73.9 Peripheral vascular disease, unspecified; M86.9 Osteomyelitis, unspecified; Z95.2 Presence of prosthetic heart valve; E11.9 Type 2 diabetes mellitus without complications; I10 Essential (primary) hypertension; Z87.442 Personal history of urinary calculi; G89.29 Other chronic pain; Z79.899 Other long term (current) drug therapy; Z88.1 Allergy status to other antibiotic agents; E87.2 Acidosis; I45.10 Unspecified right bundle-branch block; I51.7 Cardiomegaly
CPT/HCPCS: 36415; 70450; 70551; 71010; 80048; 80053; 80061; 81003; 83605; 84484; 85025; 85610; 85730; 86140; 87040; 87641; 93005; 93306; 93880; 95819; 99284; A9270-GY; G0378; G8978-GP-CI; G8979-GP-CH; G8980-GP-CH; G8987-GO-CJ; G8988-GO-CI

== ENCOUNTER 2017-11-27 13:14 | Inpatient (IN) | payer MEDICARE, BC ==
[2017-11-27] MEDS ORDERED: Piperacillin/Tazobac ADVAN(*) 3.375 GM in NS 0.9% 100 ML* 100 ML IVPB ONE (13:33)
--- OUTSIDE RECORDS SUMMARY | 2017-11-27 13:47 | XMS REPORT ---
:1945 External Reference #:[id number] Author Organization [employer] Address [address] [address] Phone [phone] Care Team Providers Name Role Phone Bereket Coffey MD Care Team Information Tonguer Unavailable Hany Sepulveda MD Primary Care Physician Unavailable Payers Type Date Identification Numbers Payment Provider Subscriber Medicare Primary Policy Number: [id number] Medicare Mika Garcia PayID: [id number] [address] [place] [address] Medigap Part B Policy Number: [id number] [facility] Mika Garcia PayID: [id number] [address] [place] [address] Problems Date Description Provider Status Onset: 01/28/2011 Benign essential hypertension Hailey Montague M.D., FACP Active Onset: 01/28/2011 Type 2 diabetes mellitus Hailey Montague M.D., FACP Active Onset: 01/28/2011 Uric acid urolithiasis Hailey Montague M.D., FACP Active Onset: 01/28/2011 Aortic valve disorder Hailey Montague M.D., FACP Active Onset: 07/08/2017 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 Cigarette Use Never Smoked Cigarettes ETOH Use Rarely consumes alcohol Smoking Patient has never smoked Recreational Drug Use Denies Drug Use Daily Caffeine Coffee/Iced Tea Occasionally Daily Caffeine Consumes on average 16oz per day Exercise Type/Frequency Exercises rarely pt doing physical therapy General Hx Text Lives at [facility] Allergies, Adverse Reactions, Alerts Date Description Reaction Status Severity Comments 07/31/2010 Levaquin rash active Severe Medications Medication Date Status Form Strength Qnty SIG Indications Ordering Provider Plavix 11/09 Active Tablets 75mg 90tab 1 by mouth Yousif S. /2017 s every day Milagros Alvarado Nystatin 05/07 Active Powder [id number] apply t/GM twice daily until rash clears Metoprolol Active Tablets 25mg 1 tab by Unknown Tartrate /0000 mouth twice a day (listed on med list as once daily) Metformin HCL Active Tablets 1000mg 1 tab po Unknown / bid Potassium Active Tablets ER 20Meq 1 by mouth Unknown Chloride ER / every day Magnesium Oxide Active Tablets 400mg 1 by mouth Unknown /0000 daily twice daily Losartan Active Tablets 25mg 1 by mouth Unknown Potassium /0000 every day Vitamin B-12 Active Tablets 1000mcg 1 by mouth Unknown /0000 every day Vitamin D3 Active Capsules [id number] 1 po Unknown /0000 qmonth Xarelto Active Tablets 20mg 1 by mouth Unknown /0000 every day Benadryl Active Tablets 25mg 1 po qHS Unknown /0000 prn Furosemide Active Tablets 40mg 1 by mouth Unknown /0000 every day Tylenol Extra Active Tablets 500mg 2 by mouth Unknown Strength /0000 as needed Omeprazole Active Capsules DR 40mg 1 by mouth Unknown /0000 every day Oxycodone HCL Active Capsules 5mg 1 tab by Unknown /0000 mouth every 4 hours as needed pain Senna-S Active Tablets 8.6-50mg 2 by mouth Unknown /0000 every day prn Zofran Active Tablets 4mg 1 tab by Unknown /0000 mouth every 8 hours as needed nausea Ferrous Sulfate Active Tablets 325mg 1 by mouth Unknown /0000 every day Hydrocortisone Active Cream 2.5% apply to Unknown /0000 affected area twice daily Januvia Active Tablets 50mg 1 by mouth Unknown /0000 every day Vitamin C Active Capsules 500mg 1 by mouth Unknown 0000 every day Alprazolam Active Tablets 0.25mg one by Unknown / mouth up to three times daily as needed for anxiety Doxycycline 04/13 Hx Capsules 100mg 60cap 1 cap by Franc geovani s mouth D. - twice a [facility], 07/07 day with M.D. food - orders written for [facility] Vancomycin HCL 04/01 Hx Solution 1500mg iv every M.67 Franc Rec 24 hours D. - at [facility], 04/09 [facility].D. Vancomycin HCL 03/25 Hx Solution 1250mg iv every M.672 Franc Rec 24 hours D. - at [facility], 04/01 [facility].D. Vancomycin HCL 02/23 Hx Solution 1000mg QS iv every .672 Rec 24 hours D. - starting [facility], 03/2503/20/17 M.D. Furosemide 07/02 Hx Tablets 20mg 1 po daily Marcis T. Yonatan, - , FAC, 09/13 [facility] Ergocalciferol 10/07 Hx Capsules [id number] 8caps 1 cap by Berenice mouth Varn, - every week N.P. 07/01 Simvastatin 08/17 Hx Tablets 10mg 90tab take one 250.00 s tablet by Samantha - mouth at , M.D. 06/14 bedtime Triamcinolone 07/02 Hx Ointment 0.1% 80uni Apply To 692.9 Hailey Acetonide ts Affected Clari, - Area [facility] M[facility]D., 07[facility] [facility] 10/06 Hx Capsules 500mg 8caps 4 tabs 1 Berenice hour Varsridhar, - before N.P. 02/06 dental procedure Metoprolol Hx 100mg 1 tablet Berenice Succinate ER / daily Varn, - N.P. 07/31 Altace Hx Capsules 10mg 90cap Take 1 Hailey s Capsule By Clari, - Mouth M.D., 10/04 Every Day FACP Aspir-[address] 81mg 30tab 1 po qd Unknown /0000 s - 11/09 Fish Oil Hx Capsules 1000mg 60cap po bid Unknown /0000 s - 07/01 Metformin HCL Hx Tablets 850mg 90tab take 1 Seth /0000 s tablet by Fidencio, - mouth M.D. 07/01 Gabapentin Hx Capsules 300mg 270ca take three Seth /0000 ps capsules Nicolas, - by mouth M.D. 07/01 at bedtime Metoprolol Hx Tablets ER 100mg 90tab take 1 Seth Succinate ER /0000 24HR s tablet by Nicolas, - mouth M.D. 07/01 Glipizide ER Hx Tablets ER 5mg 90tab take one Jameson /0000 24HR s tablet by Samantha - mouth bid , M.D. 09/13 Losartan Hx Tablets 50mg 90tab Take One Seth Potassium /0000 s Tablet By Fidencio, - Mouth M.D. 07/01 Gabapentin Hx Tablets 600mg 1 tab by Unknown /0000 mouth - every day 09/13 Digoxin Hx Tablets 250mcg 1 by mouth Unknown /0000 every day - 06/15 Furosemide Hx Tablets 20mg 3 tabs by Unknown /0000 mouth - every 07/02 Xarelto 00 Hx Tablets 20mg 1 by mouth Unknown /0000 every day - 02/04 Percocet 00 Hx Tablets 5-325mg as needed Unknown /0000 pain - 02/04 Mucinex DM 00 Hx Tablets ER 60-1200mg Unknown Maximum Strength /0000 12HR - 09/13 Prochlorperazine 00 Hx Tablets 10mg 1 by mouth Unknown Maleate /0000 every 6-8 - hour as 09/13 Zolpidem Tartrate Hx Tablets 10mg 1 tab by Unknown /0000 mouth - every 02/04 night at bedtime as needed Benadryl 00 Hx Tablets 25mg as needed Unknown /0000 - 02/04 Warfarin Sodium Hx as Unknown /0000 directed - 02/05 Dorris 00/ Hx Tablets 5-325mg 1 tab po Unknown /0000 qHS - 09/13 Flonase Hx Suspension 50mcg/Act 1 Unknown /0000 intranasal - puff to 09/13 nostril daily Bactrim DS Hx Tablets 800-160mg 1 by mouth Unknown /0000 twice a - day for 4 Doxycycline Hx Tablets 100mg 28tab 1 by mouth Franc Hyclate / s twice a D. - day Ban 02/06 M.D. Immunizations CPT Code Status Date Vaccine Lot # [id number] Given 08/17/2014 Pneumonia Vaccine [id number] Given 08/17/2014 Flu Vaccine Split Virus Preservative Free For [id number] Indiv 3Yr Older 30210 Given 08/14/2014 Influenza Virus Vaccine, Quadrivalent, Split, [id number] Preservative Free [id number] Given 10/04/2012 Fluvirin Im 3Yrs And Older [id number] 12028 Given 10/04/2012 Tdap - Tetanus/Diptheria/Acellular Pertussis [id number] 67800 Given 08/17/2011 Influenza Virus 3Yrs & Over [id number] 20266 Given 07/31/2010 Influenza Virus 3Yrs & Over 90705 Given 01/28/2010 Influenza Virus Vaccine, Pandemic Formulation 54887 Given 01/28/2010 Administration Swine Flu Shot 46700 Given 07/11/2009 Influenza Virus 3Yrs & Over 29871 Given 02/15/2009 Zoster (Zostavax) 65952 Given 09/10/2006 Influenza Virus 3Yrs & Over Vital Signs Date Vital Result Comment 11/09/2017 Height 71 inches 5'11" Weight 220.00 lb Heart Rate 66 /min BP Systolic 126 mmHg BP Diastolic 80 mmHg BMI (Body Mass Index) 30.7 kg/m2 08/26/2017 Height 71 inches 5'11" Weight 226.50 lb without shoes Heart Rate 90 /min BP Systolic Sitting 140 mmHg Lue reg cuff BP Diastolic Sitting 80 mmHg Lue reg cuff Respiratory Rate 17 /min BMI (Body Mass Index) 31.6 kg/m2 Ejection Fraction 65-70% date 02/23/17 ECHO 07/08/2017 Height 71 inches 5'11" Weight 226.25 lb without shoes Heart Rate 78 /min BP Systolic Sitting 120 mmHg Lue reg cuff BP Diastolic Sitting 74 mmHg Lue reg cuff Respiratory Rate 17 /min BMI (Body Mass Index) 31.6 kg/m2 Ejection Fraction 65% date 02/24/16 ECHO 05/17/2017 Height 71 inches 5'11" Weight 220.00 lb per pt report Heart Rate 84 /min BP Systolic Sitting 110 mmHg BP Diastolic Sitting 78 mmHg Respiratory Rate 14 /min Body Temperature 97.6 F BMI (Body Mass Index) 30.7 kg/m2 05/13/2017 Height 71 inches 5'11" Weight 220.00 lb per pt Heart Rate 64 /min reg BP Systolic Sitting 120 mmHg Lue, reg cuff BP Diastolic Sitting 80 mmHg Lue, reg cuff Respiratory Rate 16 /min BMI (Body Mass Index) 30.7 kg/m2 04/13/2017 Height 71 inches 5'11" Weight 225.00 lb per pt report Heart Rate 84 /min BP Systolic Sitting 128 mmHg BP Diastolic Sitting 64 mmHg Respiratory Rate 14 /min Body Temperature 98.1 F BMI (Body Mass Index) 31.4 kg/m2 03/23/2017 Height 71 inches 5'11" Weight 225.00 lb Heart Rate 76 /min BP Systolic Sitting 118 mmHg BP Diastolic Sitting 80 mmHg Respiratory Rate 14 /min Body Temperature 98.3 F BMI (Body Mass Index) 31.4 kg/m2 03/08/2017 Height 71 inches 5'11" Weight 225.00 lb per pt Heart Rate 80 /min reg BP Systolic Sitting 114 mmHg Lue, lg cuff BP Diastolic Sitting 80 mmHg Lue, lg cuff Respiratory Rate 16 /min BMI (Body Mass Index) 31.4 kg/m2 Ejection Fraction > 65% as of 02/24/16 echo 02/23/2017 Height 71 inches 5'11" Weight 226.38 lb Heart Rate 84 /min BP Systolic Sitting 137 mmHg BP Diastolic Sitting 77 mmHg Body Temperature 97.8 F Pain Level 2 BMI (Body Mass Index) 31.6 kg/m2 02/05/2017 Height 71 inches 5'11" Weight 220.00 lb per pt report Heart Rate 72 /min BP Systolic Sitting 118 mmHg BP Diastolic Sitting 64 mmHg Respiratory Rate 14 /min Body Temperature 97.9 F BMI (Body Mass Index) 30.7 kg/m2 09/14/2016 Height 71 inches 5'11" Weight 200.00 lb per patient Heart Rate 80 /min BP Systolic Sitting 122 mmHg left arm, reg cuff BP Diastolic Sitting 68 mmHg left arm, reg cuff Respiratory Rate 14 /min BMI (Body Mass Index) 27.9 kg/m2 Ejection Fraction >65% 02/24/16 06/15/2016 Height 71 inches 5'11" Weight 203.00 lb per patient Heart Rate 70 /min BP Systolic Sitting 130 mmHg left arm, reg cuff BP Diastolic Sitting 68 mmHg left arm, reg cuff Respiratory Rate 14 /min BMI (Body Mass Index) 28.3 kg/m2 Ejection Fraction 65-70% 02/24/16 03/09/2016 Heart Rate 68 /min BP Systolic Sitting 114 mmHg left arm, large cuff BP Diastolic Sitting 58 mmHg left arm, large cuff Respiratory Rate 16 /min Ejection Fraction 65-70% 02/24/16 02/06/2016 Heart Rate 60 /min BP Systolic Sitting 116 mmHg left arm, reg cuff BP Diastolic Sitting 44 mmHg left arm, reg cuff Respiratory Rate 16 /min Ejection Fraction 25-30% 04/16/15 12/30/2015 Heart Rate 86 /min BP Systolic Sitting 110 mmHg left arm, reg cuff BP Diastolic Sitting 74 mmHg left arm, reg cuff Respiratory Rate 16 /min Ejection Fraction 25-30% 04/16/15 10/04/2015 Heart Rate 78 /min BP Systolic Sitting 120 mmHg left arm, reg cuff BP Diastolic Sitting 80 mmHg left arm, reg cuff Respiratory Rate 16 /min Ejection Fraction 25-30% 04/16/15 07/02/2015 Heart Rate 66 /min BP Systolic Sitting 122 mmHg right arm, reg cuff BP Diastolic Sitting 74 mmHg right arm, reg cuff Respiratory Rate 16 /min Ejection Fraction 25-30% 04/16/15 08/17/2014 Height 71 inches 5'11" Weight 225.00 lb Heart Rate 106 /min BP Systolic Sitting 140 mmHg BP Diastolic Sitting 90 mmHg Body Temperature 98.1 F BMI (Body Mass Index) 31.4 kg/m2 10/04/2012 Height 70 inches 5'10" Weight 231.00 lb Heart Rate 80 /min BP Systolic Sitting 138 mmHg BP Diastolic Sitting 84 mmHg BMI (Body Mass Index) 33.1 kg/m2 08/17/2011 Height 70 inches 5'10" Weight 230.00 lb Heart Rate 84 /min BP Systolic Sitting 136 mmHg BP Diastolic Sitting 68 mmHg BMI (Body Mass Index) 33.0 kg/m2 07/02/2011 Height 70 inches 5'10" Weight 243.00 lb Heart Rate 70 /min BP Systolic Sitting 136 mmHg BP Diastolic Sitting 84 mmHg BMI (Body Mass Index) 34.9 kg/m2 01/28/2011 Height 70 inches 5'10" Weight 241.50 lb Heart Rate 76 /min BP Systolic 152 mmHg BP Diastolic 88 mmHg BMI (Body Mass Index) 34.6 kg/m2 07/31/2010 Weight 237.50 lb Heart Rate 78 /min BP Systolic 122 mmHg BP Diastolic 80 mmHg Results Test Date Test Result H/L Range Note CBC Auto Diff 05/05/2017 White Blood Count 9.7 10^3/uL 3.5-10.8 Red Blood Count 4.02 10^6/uL 4.0-5.4 Hemoglobin 13.3 g/dL Low 14.0-18.0 Hematocrit 40 % Low 42-52 Mean Corpuscular Volume 99 fL High 80-94 Mean Corpuscular Hemoglobin 33 pg High 27-31 Mean Corpuscular HGB Conc 33 g/dL 31-36 Red Cell Distribution Width 15 % 10.5-15 Platelet Count 211 10^3/uL 150-450 Mean Platelet Volume 8 um3 7.4-10.4 Abs Neutrophils 6.5 10^3/uL 1.5-7.7 Abs Lymphocytes 1.6 10^3/uL 1.0-4.8 Abs Monocytes 1.1 10^3/uL High 0-0.8 Abs Eosinophils 0.3 10^3/uL 0-0.6 Abs Basophils 0.1 10^3/uL 0-0.2 Abs Nucleated RBC 0.01 10^3/uL Granulocyte % 67.3 % 38-83 Lymphocyte % 16.8 % Low 25-47 Monocyte % 11.5 % High 1-9 Eosinophil % 3.6 % 0-6 Basophil % 0.8 % 0-2 Nucleated Red Blood Cells % 0.1 Basic Metabolic Panel 05/05/2017 Sodium 137 mmol/L 133-145 Potassium 4.3 mmol/L 3.5-5.0 Chloride 102 mmol/L 101-111 Co2 Carbon Dioxide 29 mmol/L 22-32 Anion Gap 6 mmol/L 2-11 Glucose 148 mg/dL High 70-100 Blood Urea Nitrogen 27 mg/dL High 6-24 Creatinine 1.21 mg/dL High 0.67-1.17 BUN/Creatinine Ratio 22.3 High 8-20 Calcium 9.5 mg/dL 8.6-10.3 Egfr Non- 58.8 >60 Egfr 75.6 >60 1 Laboratory test finding 03/31/2017 Point of Care Glucose 142 mg/dL High 74 -106 2 Laboratory test finding 03/31/2017 Point of Care Glucose 179 mg/dL High 74 -106 3 Laboratory test finding 03/30/2017 Point of Care Glucose 158 mg/dL High 74 -106 4 Laboratory test finding 03/30/2017 Point of Care Glucose 199 mg/dL High 74 -106 5 Laboratory test finding 03/26/2017 Point of Care Glucose 178 mg/dL High 74 -106 6 Laboratory test finding 03/26/2017 Point of Care Glucose 123 mg/dL High 74 -106 7 Laboratory test finding 03/25/2017 Point of Care Glucose 179 mg/dL High 74 -106 8 Laboratory test finding 03/25/2017 Point of Care Glucose 234 mg/dL High 74 -106 9 Laboratory test finding 03/24/2017 Point of Care Glucose 129 mg/dL High 74 -106 10 Laboratory test finding 03/24/2017 Point of Care Glucose 184 mg/dL High 74 -106 11 Laboratory test finding 03/23/2017 Point of Care Glucose 127 mg/dL High 74 -106 12 Laboratory test finding 03/23/2017 Point of Care Glucose 186 mg/dL High 74 -106 13 Laboratory test finding 03/22/2017 Point of Care Glucose 149 mg/dL High 74 -106 14 Laboratory test finding 03/22/2017 Point of Care Glucose 238 mg/dL High 74 -106 15 Laboratory test finding 03/19/2017 Point of Care Glucose 151 mg/dL High 74 -106 16 Laboratory test finding 03/19/2017 Point of Care Glucose 218 mg/dL High 74 -106 17 Laboratory test finding 03/18/2017 Point of Care Glucose 142 mg/dL High 74 -106 18 Laboratory test finding 03/18/2017 Point of Care Glucose 196 mg/dL High 74 -106 19 CBC Auto Diff 03/18/2017 White Blood Count 8.9 10^3/uL 3.5-10.8 20 Red Blood Count 3.62 10^6/uL Low 4.0-5.4 20 Hemoglobin 11.3 g/dL Low 14.0-18.0 20 Hematocrit 35 % Low 42-52 20 Mean Corpuscular Volume 95 fL High 80-94 20 Mean Corpuscular Hemoglobin 31 pg 27-31 20 Mean Corpuscular HGB Conc 33 g/dL 31-36 20 Red Cell Distribution Width 16 % High 10.5-15 20 Platelet Count 242 10^3/uL 150-450 20 Mean Platelet Volume 8 um3 7.4-10.4 20 Abs Neutrophils 5.2 10^3/uL 1.5-7.7 20 Abs Lymphocytes 1.8 10^3/uL 1.0-4.8 20 Abs Monocytes 1.1 10^3/uL High 0-0.8 20 Abs Eosinophils 0.7 10^3/uL High 0-0.6 20 Abs Basophils 0.1 10^3/uL 0-0.2 20 Abs Nucleated RBC 0.01 10^3/uL 20 Granulocyte % 58.4 % 38-83 20 Lymphocyte % 19.7 % Low 25-47 20 Monocyte % 12.5 % High 1-9 20 Eosinophil % 8.3 % High 0-6 20 Basophil % 1.1 % 0-2 20 Nucleated Red Blood Cells % 0.1 20 Laboratory test finding 03/18/2017 C Reactive Protein 9.78 mg/L High < 5.00 20, 21 Vancomycin Trough 35.0 g/mL High 20, 22 Comp Metabolic Panel 03/18/2017 Sodium 138 mmol/L 133-145 20 Potassium 4.2 mmol/L 3.5-5.0 20 Chloride 101 mmol/L 101-111 20 Co2 Carbon Dioxide 26 mmol/L 22-32 20 Anion Gap 11 mmol/L 2-11 20 Glucose 146 mg/dL High 70-100 20 Blood Urea Nitrogen 22 mg/dL 6-24 20 Creatinine 1.11 mg/dL 0.67-1.17 20 BUN/Creatinine Ratio 19.8 8-20 20 Calcium 8.8 mg/dL 8.6-10.3 20 Total Protein 6.3 g/dL Low 6.4-8.9 20 Albumin 3.3 g/dL 3.2-5.2 20 Globulin 3.0 g/dL 2-4 20 Albumin/Globulin Ratio 1.1 1-3 20 Total Bilirubin 0.30 mg/dL 0.2-1.0 20 Alkaline Phosphatase 61 U/L 34-104 20 Alt 10 U/L 7-52 20 Ast 13 U/L 13-39 20 Egfr Non- 64.9 >60 20 Egfr 83.5 >60 20, 23 Laboratory test 03/17/2017 Point of Care Glucose 151 mg/dL High 74-106 24 finding Laboratory test 03/17/2017 Point of Care Glucose 231 mg/dL High 74-106 25 finding Laboratory test 03/16/2017 Point of Care Glucose 122 mg/dL High 74-106 26 finding Laboratory test 03/16/2017 Point of Care Glucose 168 mg/dL High 74-106 27 finding Laboratory test 03/15/2017 Point of Care Glucose 134 mg/dL High 74-106 28 finding Laboratory test 03/15/2017 Point of Care Glucose 204 mg/dL High 74-106 29 finding Laboratory test 03/12/2017 Point of Care Glucose 148 mg/dL High 74-106 30 finding Laboratory test 03/12/2017 Point of Care Glucose 173 mg/dL High 74-106 31 finding Laboratory test 03/11/2017 Point of Care Glucose 140 mg/dL High 74-106 32 finding Laboratory test 03/11/2017 Point of Care Glucose 212 mg/dL High 74-106 33 finding Laboratory test 03/11/2017 Vancomycin Trough 17.9 g/mL 34, 35 finding C Reactive Protein 27.94 mg/L High < 5.00 34, 36 Laboratory test 03/09/2017 Point of Care 176 mg/dL High 74-106 37 finding Glucose Laboratory test 03/08/2017 Point of Care 143 mg/dL High 74-106 38 finding Glucose Laboratory test 03/08/2017 Point of Care 184 mg/dL High 74-106 39 finding Glucose Laboratory test 03/05/2017 Point of Care 172 mg/dL High 74-106 40 finding Glucose Laboratory test 03/05/2017 Point of Care 208 mg/dL High 74-106 41 finding Glucose Laboratory test 03/04/2017 Point of Care 283 mg/dL High 74-106 42 finding Glucose Laboratory test 03/04/2017 Point of Care 212 mg/dL High 74-106 43 finding Glucose Laboratory test 03/03/2017 Point of Care 230 mg/dL High 74-106 44 finding Glucose Laboratory test 03/03/2017 Point of Care 133 mg/dL High 74-106 45 finding Glucose Laboratory test 03/02/2017 Point of Care 122 mg/dL High 74-106 46 finding Glucose Laboratory test 03/02/2017 Point of Care 201 mg/dL High 74-106 47 finding Glucose Laboratory test 03/01/2017 Point of Care 168 mg/dL High 74-106 48 finding Glucose Laboratory test 03/01/2017 Point of Care 290 mg/dL High 74-106 49 finding Glucose Laboratory test 02/26/2017 Point of Care 137 mg/dL High 74-106 50 finding Glucose Laboratory test 02/26/2017 Point of Care 178 mg/dL High 74-106 51 finding Glucose Laboratory test 02/25/2017 Point of Care 140 mg/dL High 74-106 52 finding Glucose Laboratory test 02/25/2017 Point of Care 176 mg/dL High 74-106 53 finding Glucose Laboratory test 02/24/2017 Point of Care 184 mg/dL High 74-106 54 finding Glucose Laboratory test 02/24/2017 Point of Care 246 mg/dL High 74-106 55 finding Glucose Laboratory test 02/23/2017 Point of Care 128 mg/dL High 74-106 56 finding Glucose Laboratory test 02/23/2017 Point of Care 164 mg/dL High 74-106 57 finding Glucose Wound Culture/Sensi 02/23/2017 Wound/Misc SEE RESULT 58, 59 Culture-Gram Stain BELOW Laboratory test 02/22/2017 Point of Care 153 mg/dL High 74-106 60 finding Glucose Laboratory test 02/22/2017 Point of Care 182 mg/dL High 74-106 61 finding Glucose Laboratory test 02/19/2017 Point of Care 170 mg/dL High 74-106 62 finding Glucose Laboratory test 02/19/2017 Point of Care 232 mg/dL High 74-106 63 finding Glucose Laboratory test 02/18/2017 Point of Care 185 mg/dL High 74-106 64 finding Glucose Laboratory test 02/18/2017 Point of Care 202 mg/dL High 74-106 65 finding Glucose Laboratory test 02/17/2017 Point of Care 186 mg/dL High 74-106 66 finding Glucose Laboratory test 02/17/2017 Point of Care 256 mg/dL High 74-106 67 finding Glucose Laboratory test 02/16/2017 Point of Care 179 mg/dL High 74-106 68 finding Glucose Laboratory test 02/16/2017 Point of Care 221 mg/dL High 74-106 69 finding Glucose Wound Culture/Sensi 02/05/2017 Wound/Misc SEE RESULT 70, 71 Culture-Gram Stain BELOW Creatinine 01/21/2017 Creatinine 1.16 mg/dL 0.67-1.17 Egfr Non- 61.7 >60 Egfr 79.4 >60 72 CBC Auto Diff 06/24/2016 White Blood Count 8.5 10^3/uL 3.5-10.8 73 Red Blood Count 4.20 10^6/uL 4.0-5.4 73 Hemoglobin 13.2 g/dL Low 14.0-18.0 73 Hematocrit 40 % Low 42-52 73 Mean Corpuscular Volume 96 fL High 80-94 73 Mean Corpuscular Hemoglobin 32 pg High 27-31 73 Mean Corpuscular HGB Conc 33 g/dL 31-36 73 Red Cell Distribution Width 17 % High 10.5-15 73 Platelet Count 240 10^3/uL 150-450 73 Mean Platelet Volume 8 um3 7.4-10.4 73 Abs Neutrophils 5.6 10^3/uL 1.5-7.7 73 Abs Lymphocytes 1.7 10^3/uL 1.0-4.8 73 Abs Monocytes 0.7 10^3/uL 0-0.8 73 Abs Eosinophils 0.4 10^3/uL 0-0.6 73 Abs Basophils 0.1 10^3/uL 0-0.2 73 Abs Nucleated RBC 0.01 10^3/uL 73 Granulocyte % 66.1 % 38-83 73 Lymphocyte % 19.7 % Low 25-47 73 Monocyte % 8.8 % 1-9 73 Eosinophil % 4.6 % 0-6 73 Basophil % 0.8 % 0-2 73 Nucleated Red Blood Cells % 0.1 73 Basic Metabolic Panel 06/24/2016 Sodium 138 mmol/L 133-145 73 Potassium 4.3 mmol/L 3.5-5.0 73 Chloride 102 mmol/L 101-111 73 Co2 Carbon Dioxide 27 mmol/L 22-32 73 Anion Gap 9 mmol/L 2-11 73 Glucose 117 mg/dL High 70-100 73 Blood Urea Nitrogen 22 mg/dL 6-24 73 Creatinine 0.99 mg/dL 0.67-1.17 73 BUN/Creatinine Ratio 22.2 High 8-20 73 Calcium 9.3 mg/dL 8.6-10.3 73 Egfr Non- 74.3 >60 73 Egfr 95.6 >60 73, 74 Lipid Profile (Trig/Chol/HDL) 06/24/2016 Triglycerides 177 mg/dL 73, 75 Cholesterol 114 mg/dL 73, 76 HDL Cholesterol 24.5 mg/dL 73, 77 LDL Cholesterol 54 mg/dL 73, 78 Basic Metabolic Panel 02/24/2016 Sodium 138 mmol/L 133-145 Potassium 4.5 mmol/L 3.5-5.0 Chloride 100 mmol/L Low 101-111 Co2 Carbon Dioxide 32 mmol/L 22-32 Anion Gap 6 mmol/L 2-11 Glucose 157 mg/dL High 70-100 Blood Urea Nitrogen 18 mg/dL 6-24 Creatinine 0.96 mg/dL 0.67-1.17 BUN/Creatinine Ratio 18.8 8-20 Calcium 9.0 mg/dL 8.6-10.3 Egfr Non- 77.0 >60 Egfr 99.0 >60 79 CBC Auto Diff 02/24/2016 White Blood Count 6.7 10^3/uL 3.5-10.8 Red Blood Count 3.53 10^6/uL Low 4.0-5.4 Hemoglobin 10.5 g/dL Low 14.0-18.0 Hematocrit 34 % Low 42-52 Mean Corpuscular Volume 95 fL High 80-94 Mean Corpuscular Hemoglobin 30 pg 27-31 Mean Corpuscular HGB Conc 31 g/dL 31-36 Red Cell Distribution Width 16 % High 10.5-15 Platelet Count 393 10^3/uL 150-450 Mean Platelet Volume 7 um3 Low 7.4-10.4 Abs Neutrophils 4.4 10^3/uL 1.5-7.7 Abs Lymphocytes 1.2 10^3/uL 1.0-4.8 Abs Monocytes 0.6 10^3/uL 0-0.8 Abs Eosinophils 0.4 10^3/uL 0-0.6 Abs Basophils 0.1 10^3/uL 0-0.2 Abs Nucleated RBC 0 10^3/uL Granulocyte % 65.3 % 38-83 Lymphocyte % 18.7 % Low 25-47 Monocyte % 9.0 % 1-9 Eosinophil % 5.9 % 0-6 Basophil % 1.1 % 0-2 Nucleated Red Blood Cells % 0.1 Laboratory test finding 11/06/2015 Point of Care Glucose 154 mg/dL High 74 -106 80 Basic Metabolic Panel 08/14/2015 Sodium 135 mmol/L 133-145 Potassium 4.7 mmol/L 3.5-5.0 Chloride 99 mmol/L Low 101-111 Co2 Carbon Dioxide 33 mmol/L High 22-32 Anion Gap 3 mmol/L 2-11 Glucose 327 mg/dL High 70-100 Blood Urea Nitrogen 18 mg/dL 6-24 Creatinine 0.87 mg/dL 0.67-1.17 BUN/Creatinine Ratio 20.7 High 8-20 Calcium 8.8 mg/dL 8.6-10.3 Egfr Non- 86.3 >60 Egfr 110.9 >60 81 Cath Panel 06/26/2015 PTT Partial Thromboplasin <pending> CBC W/Auto Diff 06/26/2015 White Blood Count 13.0 10^3/uL High 4.8-10.8 Red Blood Count 4.23 10^6/uL 4.0-5.4 Hemoglobin 13.5 g/dL Low 14.0-18.0 Hematocrit 41 % Low 42-52 Mean Corpuscular Volume 97 fL High 80-94 Mean Corpuscular Hemoglobin 32 pg High 27-31 Mean Corpuscular HGB Conc 33 g/dL 31-36 Red Cell Distribution Width 17 % High 10.5-15 Platelet Count 291 10^3/uL 150-450 Mean Platelet Volume 7 um3 Low 7.4-10.4 Abs Neutrophils 9.4 10^3/uL High 1.5-7.7 Abs Lymphocytes 2.0 10^3/uL 1.0-4.8 Abs Monocytes 1.1 10^3/uL High 0-0.8 Abs Eosinophils 0.3 10^3/uL 0-0.6 Abs Basophils 0.1 10^3/uL 0-0.2 Abs Nucleated RBC 0 10^3/uL Granulocyte % 72.7 % 38-83 Lymphocyte % 15.3 % Low 25-47 Monocyte % 8.4 % 1-9 Eosinophil % 2.5 % 0-6 Basophil % 1.1 % 0-2 Nucleated Red Blood Cells % 0 BMP Basic Metabolic Panel (8) 06/26/2015 Sodium 136 mmol/L 133-145 Potassium 4.0 mmol/L 3.5-5.0 Chloride 96 mmol/L Low 101-111 Co2 Carbon Dioxide 35 mmol/L High 22-32 Anion Gap 5 mmol/L 2-11 Glucose 78 mg/dL 70-100 Blood Urea Nitrogen 17 mg/dL 6-24 Creatinine 0.85 mg/dL 0.67-1.17 BUN/Creatinine Ratio 20.0 8-20 Calcium 9.3 mg/dL 8.6-10.3 Egfr Non- 88.9 >60 Egfr 114.3 >60 82 Comp Metabolic Panel 03/15/2015 Sodium 141 mmol/L 133-145 Potassium 5.0 mmol/L 3.5-5.0 Chloride 106 mmol/L 101-111 Co2 Carbon Dioxide 31 mmol/L 22-32 Anion Gap 4 mmol/L 2-11 Glucose 207 mg/dL High 70-100 Blood Urea Nitrogen 27 mg/dL High 6-24 Creatinine 1.20 mg/dL High 0.67-1.17 BUN/Creatinine Ratio 22.5 High 8-20 Calcium 8.6 mg/dL 8.6-10.3 Total Protein 6.2 g/dL Low 6.4-8.9 Albumin 3.3 g/dL 3.2-5.2 Globulin 2.9 g/dL 2-4 Albumin/Globulin Ratio 1.1 1-3 Total Bilirubin 0.70 mg/dL 0.2-1.0 Alkaline Phosphatase 98 U/L 34-104 Alt 42 U/L 7-52 Ast 35 U/L 13-39 Egfr Non- 59.7 >60 Egfr 76.8 >60 83 Urinalysis Profile 03/15/2015 Urine Color Yellow Urine Appearance Cloudy Urine Specific [place] 1.021 1.010-1.030 Urine pH 5.0 5-9 Urine Urobilinogen Negative Negative Urine Ketones Negative Negative Urine Protein Negative Negative Urine Leukocytes Negative Negative Urine Blood Negative Negative * * Negative 84 Urine Nitrite Negative Negative Urine Bilirubin Negative Negative Urine Glucose 1+(50 mg/dL) Negative Laboratory test finding 03/15/2015 Hemoglobin A1c (Glyco 6.4 % High Less than 6.0 85 HGB) Vitamin D Total 25(Oh) 28.8 ng/mL Low 30-50 Laboratory test finding 08/17/2014 Vitamin B12 543 pg/mL 180-914 86 Ferritin 105.2 ng/mL 24-336 Folate 18.44 ng/mL >3.99 Iron 46 g/dL Low 50-212 Iron & Iron Binding Capacity 08/17/2014 Unsaturated Iron Binding 262 g /dL Total Iron Binding Capacity 308 g/dL 250-450 % Iron Saturation 15 % 15-55 Laboratory test finding 08/17/2014 Transferrin 221 mg/dL 200 - 360 87 Laboratory test finding 08/17/2014 Hemoglobin A1c 5.9 5-7 Vitamin D, 25 Hydroxy 10/04/2012 25-Hydroxy Vitamin D2 <4.0 ng/mL 25-Hydroxy Vitamin D3 20 ng/mL 25-Hydroxy Vitamin D Total 20 ng/mL 88 Urine Microalbumin Random 09/16/2012 Ur Microalbumin (Mg/L) 10.0 mg/L 89 Urine Creatinine 34.9 mg/dL Urine Microalbumin/Creatinine 28.7 UG/MG Less Than 31 Laboratory test finding 09/16/2012 Hemoglobin A1c 5.9 % Less than 6.0 90 Lipid Profile (Trig/Chol/HDL) 09/16/2012 Triglycerides 57 mg/dL 40-200 Cholesterol 122 mg/dL Less than 200 HDL Cholesterol 46 mg/dL 40-60 91 Cholesterol/HDL Ratio 2.7 AVERAGE 1-4.44 LDL Cholesterol 64.6 mg/dL Less Than 100 92 Comp Metabolic Panel 09/16/2012 Sodium 138 mmol/L 133-145 Potassium 4.6 mmol/L 3.5-5.0 Chloride 101 mmol/L 101-111 Co2 Carbon Dioxide 29.0 mmol/L 22-32 Anion Gap 8.0 mmol/L 2-11 Glucose 114 mg/dL High 70-100 Blood Urea Nitrogen 22 mg/dL 6-24 Creatinine 0.90 mg/dL 0.50-1.40 BUN/Creatinine Ratio 24.4 High 8-20 Calcium 9.3 mg/dL 8.1-9.9 Total Protein 7.3 GM/DL 6.2-8.1 Albumin 3.4 GM/DL 3.2-5.2 Globulin 3.9 GM/DL 2-4 Albumin/Globulin Ratio 0.9 Low 1-3 Total Bilirubin 0.6 mg/dL 0.1-1.0 93 Alkaline Phosphatase 92 U/L 30-110 Alt 22 U/L 14-54 Ast 24 U/L 12-42 Egfr Non- 83.7 >60 Egfr 107.6 >60 94 Laboratory test finding 06/23/2011 Hemoglobin A1c 6.3 % High Less Than 6.0 95 1 Because ethnic data is not always readily available, this report includes an eGFR for both -Americans and non- Americans. The National Kidney Disease Education Program (NKDEP) does not endorse the use of the MDRD equation for patients that are not between the ages of 18 and 70, are , have extremes of body size, muscle mass, or nutritional status, or are non- or non-. According to the National Kidney Foundation, irrespective of diagnosis, the stage of the disease is based on the level of kidney function: Stage Description GFR(mL/min/1.73 m(2)) 1 Kidney damage with normal or decreased GFR 90 2 Kidney damage with mild decrease in GFR 60-89 3 Moderate decrease in GFR 30-59 4 Severe decrease in GFR 15-29 5 Kidney failure <15 (or dialysis) 2 Verification Engineer: [id number] Verification Engineer: [id number] Verification Engineer: [id number] 5 Verification Engineer: [id number] Verification Engineer: [id number] Verification Engineer: [id number] Verification Engineer: [id number] 9 Verification Engineer: [id number] Verification Engineer: [id number] 11 Verification Engineer: [id number] 12 Verification Engineer: [id number] Verification Engineer: [id number] Verification Engineer: [id number] 15 Verification Engineer: [id number] 16 Verification Engineer: [id number] Verification Engineer: [id number] 18 Verification Engineer: [id number] 19 Verification Engineer: [id number] [facility] , Room Number 133 21 Acute inflammation: >10.00 22 Critical Result VANC:35.0 Called to STEPHANIE Balderrama at: 11:42:20 by:[id number] Read back by:STEPHANIE Balderrama 23 Because ethnic data is not always readily available, this report includes an eGFR for both -Americans and non- Americans. The National Kidney Disease Education Program (NKDEP) does not endorse the use of the MDRD equation for patients that are not between the ages of 18 and 70, are , have extremes of body size, muscle mass, or nutritional status, or are non- or non-. According to the National Kidney Foundation, irrespective of diagnosis, the stage of the disease is based on the level of kidney function: Stage Description GFR(mL/min/1.73 m(2)) 1 Kidney damage with normal or decreased GFR 90 2 Kidney damage with mild decrease in GFR 60-89 3 Moderate decrease in GFR 30-59 4 Severe decrease in GFR 15-29 5 Kidney failure <15 (or dialysis) 24 Verification Engineer: [id number] 25 Verification Engineer: [id number] 26 Verification Engineer: [id number] 27 Verification Engineer: [id number] Verification Engineer: [id number] 29 Verification Engineer: [id number] Verification Engineer: [id number] 31 Verification Engineer: [id number] 32 Verification Engineer: [id number] 33 Verification Engineer: [id number] [facility] , Room Number 133 35 [id number] [facility] , Room Number 133 36 Acute inflammation: >10.00 37 Verification Engineer: [id number] Verification Engineer: [id number] 39 Verification Engineer: [id number] Verification Engineer: [id number] 41 Verification Engineer: [id number] Verification Engineer: [id number] 43 Verification Engineer: [id number] Verification Engineer: [id number] Verification Engineer: [id number] Verification Engineer: [id number] Verification Engineer: [id number] Verification Engineer: [id number] Verification Engineer: [id number] Verification Engineer: [id number] Verification Engineer: [id number] Verification Engineer: [id number] Verification Engineer: [id number] 54 Verification Engineer: [id number] 55 Verification Engineer: [id number] 56 Verification Engineer: [id number] 57 Verification Engineer: [id number] SEE RESULT BELOW Name: MIKA GARCIA : [address]: Franc Julien MD Acct: [id number] Unit: [id number] AGE: 71 Location: [facility] Re02/23/17 SEX: M Status: REG REF SPEC: [id number] MOMO: 02/23/17-7 [facility] DR: Franc Julien MD REQ: [id number] RECD: 02/23/17 STATUS: COMP _ SOURCE: WOUND SPDESC: ORDERED: Culture Stain COMMENTS: [id number] Specimen Description LEFT 2ND TOE Procedure Result Reported Site Wound/Misc Gram Stain Final 02/24/17- 0750 ML 2+ Epithelial Cells 1+ Neutrophils 1+ Gram Positive Cocci Wound/Misc Culture Final 02/25/17- 1044 ML Organism 1 NORMAL JOSSELYN Quantity 2+ * ML - MAIN LAB ([facility]) . END OF REPORT * ML=Testing performed at Main Lab DEPARTMENT OF PATHOLOGY, [address] [place] [address] Kevin Moore M.D. Director [facility] # [id number] Verification Engineer: [id number] Verification Engineer: [id number] Verification Engineer: [id number] Verification Engineer: [id number] Verification Engineer: [id number] Verification Engineer: [id number] Verification Engineer: [id number] Verification Engineer: [id number] Verification Engineer: [id number] Verification Engineer: [id number] [facility] NONE GIVEN, Room Number NONE GIVEN [id number] SEE RESULT BELOW Name: RADHAMIKA Silveira : [address]: Franc Julien MD Acct: [id number] Unit: [id number] AGE: 71 Location: [facility] Re02/05/17 SEX: M Status: REG REF SPEC: [id number] MOMO: 02/05/17-1002 [facility] DR: Franc Julien MD REQ: [id number] RECD: 02/05/171201 STATUS: TREV YOUNG DR: Melo Burns _ SOURCE: TOE SPDESC:LT SECOND ORDERED: Culture Stain COMMENTS: [facility] NONE GIVEN, Room Number NONE GIVEN [id number] Specimen Description LEFT SECOND TOE Procedure Result Reported Site Wound/Misc Gram Stain Final 02/05/17- 1522 ML 1+ Epithelial Cells No Neutrophils Observed 1+ Gram Positive Cocci Wound/Misc Culture Final 02/07/17- 926 ML Organism 1 MRSA Quantity 2+ Organism 2 PROTEUS MIRABILIS Quantity 1+ Organism 3 NORMAL JOSSELYN Quantity 2+ Consistent with previous results. 1. MRSA M.I.C. RX --------- ------ Penicillin >=0.5 R Clindamycin <=0.25 S Erythromycin >=8 R Gentamicin <=0.5 S Linezolid 2 S Nitrofurantoin <=16 S CONTINUED ON NEXT PAGE * ML=Testing performed at Main Lab DEPARTMENT OF PATHOLOGY, [address] [place] [address] Kevin Moore M.D. Director [facility] # [id number] Patient: MIKA GARCIA [id number] (Continued) Specimen: [id number] Collected: 02/05/17-1001 Received: 02/05/17-120 (Continued) Procedure Result Reported Site Wound/Misc Culture Final (continued) 02/07/17926 1. MRSA (continued) M.I.C. RX --------- ------ Oxacillin >=4 R * Quinupristin/Dalfopristin <=0.25 S Rifampin <=0.5 S Tetracycline <=1 S Doxycycline - Deduced S * Minocycline - Deduced S Trimethoprim/Sulfamethoxazole <=10 S Vancomycin 1 S Imipenem-Deduced R * Ampicillin/Sulbactam-Deduced R Cefazolin-Deduced R 2. PROTEUS MIRABILIS M.I.C. RX --------- ------ Ampicillin <=2 S Cefazolin <=4 S Cefepime <=1 S Ceftriaxone <=1 S Ciprofloxacin <=0.25 S Gentamicin <=1 S Levofloxacin <=0.12 S Meropenem <=0.25 S Nitrofurantoin 128 R Tetracycline >=16 R Pipercillin/Tazobactam <=4 S Trimethoprim/Sulfamethoxazole <=20 S Amoxicillin/Clavulanic Acid <=2 S Aztreonam <=1 S CONTINUED ON NEXT PAGE * ML=Testing performed at Main Lab DEPARTMENT OF PATHOLOGY, [address] [place] [address] Kevin Moore M.D. Director [facility] # [id number] Patient: MIKA GARCIA [id number] (Continued) Specimen: [id number] Collected: 02/05/17-1001 Received: 02/05/17-1205 (Continued) Procedure Result Reported Site Wound/Misc Culture Final (continued) * These antibiotics are not available in the [facility] Formulary Contact the Microbiology Department for any additional antibiotic reporting. Contact the Microbiology Department for any additional antibiotic reporting. * ML - MAIN LAB ([facility]) . END OF REPORT * ML=Testing performed at Main Lab DEPARTMENT OF PATHOLOGY, [address] [place] [address] Kevin Moore M.D. Director [facility] # [id number] 72 Because ethnic data is not always readily available, this report includes an eGFR for both -Americans and non- Americans. The National Kidney Disease Education Program (NKDEP) does not endorse the use of the MDRD equation for patients that are not between the ages of 18 and 70, are , have extremes of body size, muscle mass, or nutritional status, or are non- or non-. According to the National Kidney Foundation, irrespective of diagnosis, the stage of the disease is based on the level of kidney function: Stage Description GFR(mL/min/1.73 m(2)) 1 Kidney damage with normal or decreased GFR 90 2 Kidney damage with mild decrease in GFR 60-89 3 Moderate decrease in GFR 30-59 4 Severe decrease in GFR 15-29 5 Kidney failure <15 (or dialysis) 73 [id number] [facility] Room Number 133P 74 Because ethnic data is not always readily available, this report includes an eGFR for both -Americans and non- Americans. The National Kidney Disease Education Program (NKDEP) does not endorse the use of the MDRD equation for patients that are not between the ages of 18 and 70, are , have extremes of body size, muscle mass, or nutritional status, or are non- or non-. According to the National Kidney Foundation, irrespective of diagnosis, the stage of the disease is based on the level of kidney function: Stage Description GFR(mL/min/1.73 m(2)) 1 Kidney damage with normal or decreased GFR 90 2 Kidney damage with mild decrease in GFR 60-89 3 Moderate decrease in GFR 30-59 4 Severe decrease in GFR 15-29 5 Kidney failure <15 (or dialysis) 75 Desirable <150 Borderline high 150-199 High 200-499 Very High >500 76 Desirable <200 Borderline high 200-239 High >239 77 Low <40 Desirable: 40-60 High: >60 78 Desirable: <100 mg/dL Near Optimal: 100-129 mg/dL Borderline High: 130-159 mg/dL High: 160-189 mg/dL Very High: >189 mg/dL 79 Because ethnic data is not always readily available, this report includes an eGFR for both -Americans and non- Americans. The National Kidney Disease Education Program (NKDEP) does not endorse the use of the MDRD equation for patients that are not between the ages of 18 and 70, are , have extremes of body size, muscle mass, or nutritional status, or are non- or non-. According to the National Kidney Foundation, irrespective of diagnosis, the stage of the disease is based on the level of kidney function: Stage Description GFR(mL/min/1.73 m(2)) 1 Kidney damage with normal or decreased GFR 90 2 Kidney damage with mild decrease in GFR 60-89 3 Moderate decrease in GFR 30-59 4 Severe decrease in GFR 15-29 5 Kidney failure <15 (or dialysis) 80 Verification Engineer: [id number] CHAYO TAM 81 Because ethnic data is not always readily available, this report includes an eGFR for both -Americans and non- Americans. The National Kidney Disease Education Program (NKDEP) does not endorse the use of the MDRD equation for patients that are not between the ages of 18 and 70, are , have extremes of body size, muscle mass, or nutritional status, or are non- or non-. According to the National Kidney Foundation, irrespective of diagnosis, the stage of the disease is based on the level of kidney function: Stage Description GFR(mL/min/1.73 m(2)) 1 Kidney damage with normal or decreased GFR 90 2 Kidney damage with mild decrease in GFR 60-89 3 Moderate decrease in GFR 30-59 4 Severe decrease in GFR 15-29 5 Kidney failure <15 (or dialysis) 82 Because ethnic data is not always readily available, this report includes an eGFR for both -Americans and non- Americans. The National Kidney Disease Education Program (NKDEP) does not endorse the use of the MDRD equation for patients that are not between the ages of 18 and 70, are , have extremes of body size, muscle mass, or nutritional status, or are non- or non-. According to the National Kidney Foundation, irrespective of diagnosis, the stage of the disease is based on the level of kidney function: Stage Description GFR(mL/min/1.73 m(2)) 1 Kidney damage with normal or decreased GFR 90 2 Kidney damage with mild decrease in GFR 60-89 3 Moderate decrease in GFR 30-59 4 Severe decrease in GFR 15-29 5 Kidney failure <15 (or dialysis) 83 Because ethnic data is not always readily available, this report includes an eGFR for both -Americans and non- Americans. The National Kidney Disease Education Program (NKDEP) does not endorse the use of the MDRD equation for patients that are not between the ages of 18 and 70, are , have extremes of body size, muscle mass, or nutritional status, or are non- or non-. According to the National Kidney Foundation, irrespective of diagnosis, the stage of the disease is based on the level of kidney function: Stage Description GFR(mL/min/1.73 m(2)) 1 Kidney damage with normal or decreased GFR 90 2 Kidney damage with mild decrease in GFR 60-89 3 Moderate decrease in GFR 30-59 4 Severe decrease in GFR 15-29 5 Kidney failure <15 (or dialysis) 84 *Ascorbic acid is present which may interfere with detection of blood. 85 Therapeutic target for the treatment of diabetes Mellitus patients is <7% HBA1C, and in selective patients <6.0%.Please refer to [employer] Diabetic care guidelines for further information. 86 Normal Range 180 to 914 Indeterminate Range 145 to 180 Deficient Range <145 87 Test Performed by: [place] [address] Saw Boss: Yuval Drake M.D. 88 Interpretation: 10-24 (mild to moderate deficiency) -- REFERENCE VALUE -- 25-HYDROXY D TOTAL (D2+D3) Optimum levels in the normal population are 25-80 Test Performed by: [place] [address] Saw Boss: Lawson Scott III, M.D. 89 Microalbuminuria in a random sample is defined as: Microalbumin/Creatinine ratio of 30-299 ug/mg. 90 Therapeutic target for the treatment of diabetes Mellitus patients is <7% HBA1C, and in selective patients <6.0%.Please refer to [employer] Diabetic care guidelines for further information. 91 HDL Interpretation: Undesirable: High Risk: Less than 40 MG/DL Desirable: Low Risk: Greater than 60 MG/DL 92 LDL Interpretation: Low Risk Optimal Level: LDL Less than 100 MG/DL Near or Above Optimal: LDL 100-129 MG/DL Borderline High Risk: LDL 130-159 MG/DL High Risk: LDL 160-189 MG/DL Very High Risk: LDL Greater than 189 MG/DL 93 A metabolite of Naproxen, O-desmethylnaproxen, has been shown to interfere with the Jendrassik-Gilbert method for measuring total bilirubin. Samples from patients who have taken Naproxen have shown spurious elevation in total bilirubin levels. 94 Because ethnic data is not always readily available, this report includes an eGFR for both -Americans and non- Americans. The National Kidney Disease Education Program (NKDEP) does not endorse the use of the MDRD equation for patients that are not between the ages of 18 and 70, are , have extremes of body size, muscle mass, or nutritional status, or are non- or non-. According to the National Kidney Foundation, irrespective of diagnosis, the stage of the disease is based on the level of kidney function: Stage Description GFR(mL/min/1.73 m(2)) 1 Kidney damage with normal or decreased GFR 90 2 Kidney damage with mild decrease in GFR 60-89 3 Moderate decrease in GFR 30-59 4 Severe decrease in GFR 15-29 5 Kidney failure <15 (or dialysis) 95 THERAPEUTIC TARGET FOR THE TREATMENT OF DIABETES MELLITUS PATIENTS IS <7% HBA1C, AND IN SELECTIVE PATIENTS <6.0%. PLEASE REFER TO [place] DIABETIC CARE GUIDELINES FOR FURTHER INFORMATION. Procedures Date CPT Code Description Status Comment 10/01/2017 23335 EEG Recording Awake & Asleep Completed 10/01/2017 12809 ECHO Transthorasic Realtime 2D W Completed Doppler & Color Flow Hosp 05/05/2017 33296 Moderate Sedation Services; Same Completed Phys Intl 15 Mins; PT >=5 Years 05/05/2017 49515 Gdcki-Hvaewrdoc-Hcgpqtzjsq Completed 05/05/2017 24653 Catheter Placement Arterial Completed System Addtl 2ND/3RD Ord Abdom/Pelv 05/05/2017 60706 Catheter Placement Arterial Completed System Init 3RD Order Abdom/Pelv/Low 03/31/2017 27063 Hyperbaric Oxygen Therapy By Completed Physician 03/30/2017 02574 Hyperbaric Oxygen Therapy By Completed Physician 03/26/2017 98343 Hyperbaric Oxygen Therapy By Completed Physician 03/25/2017 50723 Hyperbaric Oxygen Therapy By Completed Physician 03/24/2017 77382 Hyperbaric Oxygen Therapy By Completed Physician 03/23/2017 14624 Hyperbaric Oxygen Therapy By Completed Physician 03/22/2017 29448 Hyperbaric Oxygen Therapy By Completed Physician 03/19/2017 31231 Hyperbaric Oxygen Therapy By Completed Physician 03/19/2017 69790 Debridement Skin,& sq Tissue Completed 03/18/2017 71818 Hyperbaric Oxygen Therapy By Completed Physician 03/17/2017 25178 Hyperbaric Oxygen Therapy By Completed Physician 03/16/2017 75870 Hyperbaric Oxygen Therapy By Completed Physician 03/15/2017 18752 Hyperbaric Oxygen Therapy By Completed Physician 03/12/2017 89478 Debridement Skin,& sq Tissue Completed 03/11/2017 09769 Hyperbaric Oxygen Therapy By Completed Physician 03/09/2017 62254 Hyperbaric Oxygen Therapy By Completed Physician 03/05/2017 99500 Hyperbaric Oxygen Therapy By Completed Physician 03/04/2017 19361 Hyperbaric Oxygen Therapy By Completed Physician 03/03/2017 91021 Hyperbaric Oxygen Therapy By Completed Physician 03/02/2017 94024 Hyperbaric Oxygen Therapy By Completed Physician 03/01/2017 79364 Hyperbaric Oxygen Therapy By Completed Physician 02/26/2017 08825 Hyperbaric Oxygen Therapy By Completed Physician 02/25/2017 92027 Hyperbaric Oxygen Therapy By Completed Physician 02/24/2017 93385 Hyperbaric Oxygen Therapy By Completed Physician 02/23/2017 10568 Hyperbaric Oxygen Therapy By Completed Physician 02/22/2017 38432 Hyperbaric Oxygen Therapy By Completed Physician 02/19/2017 32783 Hyperbaric Oxygen Therapy By Completed Physician 02/18/2017 57047 Hyperbaric Oxygen Therapy By Completed Physician 02/17/2017 36881 Hyperbaric Oxygen Therapy By Completed Physician 02/16/2017 25051 Hyperbaric Oxygen Therapy By Completed Physician 02/12/2017 58742 Removal Devitalization Tissue Completed Wound Less Than Equal 20 Square CM 01/29/2017 64146 Removal Devitalization Tissue Completed Wound Less Than Equal 20 Square CM 01/29/2017 63847 Debridement Skin,& sq Tissue Completed 01/08/2017 64108 Removal Devitalization Tissue Completed Wound Less Than Equal 20 Square CM 12/18/2016 00987 Removal Devitalization Tissue Completed Wound Less Than Equal 20 Square CM 02/24/2016 97961 ECHO Transthorasic Realtime 2D W Completed Doppler & Color Flow Hosp 02/06/2016 78847 EKG Tracing & Interpretation Completed 12/30/2015 83036 EKG Tracing & Interpretation Completed 09/24/2015 90586 Removal Devitalization Tissue Completed Wound Less Than Equal 20 Square CM 08/15/2015 95109 Carotid Doppler,Bilateral Completed 07/02/2015 58252 EKG Tracing & Interpretation Completed 06/26/2015 39423 EKG, Interpretation Only Completed 06/26/2015 97826 Catheterization W/RT Heart Cath Completed 04/20/2015 10082 EKG, Interpretation Only Completed 04/20/2015 53274 EKG, Interpretation Only Completed 04/16/2015 19735 ECHO Transthorasic Realtime 2D W Completed Doppler & Color Flow Hosp 04/16/2015 44876 EKG, Interpretation Only Completed 10/04/2012 83360 EKG Tracing & Interpretation Completed 06/21/2012 Diabetic Retinal Eye Exam Completed 06/19/2011 Diabetic Retinal Eye Exam Completed Document: 06/19/11 - Consult Ophthalmology/[place] 01/28/2011 06325 EKG Tracing & Interpretation Completed 07/11/2009 09638 EKG Tracing & Interpretation Completed 06/12/2008 08875 EKG Tracing & Interpretation Completed 04/14/2007 05647 EKG Tracing & Interpretation Completed 03/31/2007 Diabetic Retinal Eye Exam Completed Document: 03/31/07 - Ophthalmology/ n 08/13/2006 Diabetic Retinal Eye Exam Completed Document: 08/13/06 - Ophthalmology/ n 07/21/2005 Colonoscopy Completed He doesn't want another one. 07/03/2005 Colonoscopy Completed Encounters Type Date Location Provider CPT E/M Dx Office Visit 10/08/2017 11:00a [facility] [place] [address] E11.621 [facility] R26.89 I52 M86.272 I70.202 M86.672 Office Visit 10/05/2017 8:00a [place] [address] I63.9 I73.9 E11.621 L97.519 I10 Office Visit 10/01/2017 4:02p [facility]ous[facility] Alvarado, 33727 I63.9 M.D. I10 I48.2 Z79.01 Office Visit 10/01/2017 12:30p [facility], Zainab Azevedo, 96464 I63.9 Hospitalists M.D. 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 [facility] [place] [place]OCKER, [facility] N18.3 I35.0 Office Visit 08/13/2017 10:30a [facility] [place] [address] E11.621 [facility] R26.89 I52 M86.272 I70.202 M86.672 Office Visit 08/12/2017 3:53p [place] [address] E11.621 L97.529 I27.82 I10 I48.91 Office Visit 08/04/2017 12:41p [facility] [place] [address] E11.621 L97.509 I73.9 S81.802D Office Visit 07/30/2017 11:15a [facility] [place] [address] E11.621 [facility] R26.89 I52 M86.272 I70.202 M86.672 Office Visit 07/16/2017 11:15a [facility] [place] [address] E11.621 [facility] R26.89 I52 M86.272 I70.202 M86.672 Office Visit 07/09/2017 11:00a [facility] [place] [address] E11.621 [facility] R26.89 I52 M86.272 I70.202 M86.672 Office Visit 07/08/2017 1:40p [facility] Tam, 90248 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 M86.60 I27.82 M86.672 M86.662 E11.59 I10 Office Visit 06/18/2017 11:30a [facility] [place] [address] E11.621 [facility] R26.89 I52 M86.272 I70.202 M86.672 Office Visit 06/04/2017 11:30a [facility] [place] [address] E11.621 [facility] R26.89 I52 M86.272 I70.202 M86.672 Office Visit 05/17/2017 3:00p [facility] Virgilio Delarosa 50393 E11.621 Infectious Karo Julien M.D. M86.672 Office Visit 05/14/2017 11:30a [facility] [place] [address] E11.621 [facility] R26.89 I52 M86.272 I70.202 M86.672 Office Visit 05/13/2017 2:15p [facility], 30005 I70.249 Shuttle Inspector At [facility] GENEVIEVE CROCKER, FSCAI Office Visit 05/06/2017 1:26p [facility], 25327 I70.202 Shuttle Inspector At [facility] GENEVIEVE CROCKER, FSCAI Office Visit 04/30/2017 11:30a [facility] [place] [address] E11.621 [facility] R26.89 I52 M86.272 I70.202 M86.672 Office Visit 04/16/2017 11:30a [facility] [place] [address] E11.621 [facility] R26.89 I52 M86.272 I70.202 M86.672 L97.524 Office Visit 04/13/2017 9:50a [facility] Virgilio Delarosa 56691 E11.621 Andrae Julien M.D. M86.272 Office Visit 04/02/2017 11:30a [facility] [place] [address] E11.621 [facility] R26.89 I52 M86.272 I70.202 M86.672 L97.524 Office Visit 03/26/2017 11:30a [facility] [place] [address] E11.621 [facility] R26.89 I52 M86.272 I70.202 M86.672 L97.524 Office Visit 03/23/2017 10:30a [facility] Virgilio Delarosa 88686 E11.621 Andrae Julien M.D. M86.272 I73.9 Office Visit 03/08/2017 11:20a [facility], 93642 E11.621 Shuttle Inspector At [facility] GENEVIEVE CROCKER, FSCAI Office Visit 03/05/2017 11:30a [facility] [place] [address] E11.621 [facility] R26.89 I52 M86.272 I70.202 M86.672 L97.524 Office Visit 02/23/2017 9:50a [facility] Virgilio Delarosa 08952 E11.621 Infectious Diseases Milagros Julien M86.672 L97.521 E11.69 Office Visit 02/05/2017 9:30a [facility] Virgilio Delarosa 23618 E11.621 Infectious Karo Julien M.D. M86.672 L97.529 Office Visit 01/22/2017 11:30a [facility] [place] [address] E11.621 [facility] R26.89 I52 M86.272 L97.524 Office Visit 01/15/2017 11:30a [facility] [place] [address] E11.621 [facility] R26.89 I52 L97.522 Office Visit 12/25/2016 9:04a [facility] [place] [address] E11.621 [facility] L97.521 Office Visit 09/14/2016 11:00a [facility], 39929 Z95.2 Shuttle Inspector At [facility] GENEVIEVE CROCKER, [facility] I48.2 I87.2 I45.3 Office Visit 06/15/2016 11:20a [facility], 48079 Z95.2 Shuttle Inspector At [facility] GENEVIEVE CROCKER, [facility] I48.2 I87.2 R53.81 Office Visit 03/09/2016 10:00a [facility], 72469 Z95.2 Shuttle Inspector At [facility] GENEVIEVE CROCKER, [facility] I50.22 I48.2 I87.2 Office Visit 02/06/2016 3:00p [facility], 47762 I35.0 Shuttle Inspector At [facility] GENEVIEVE CROCKER, FSCAI I50.22 Office Visit 12/30/2015 10:20a [facility], 54993 I35.0 Shuttle Inspector At [facility] GENEVIEVE CROKCER, FSCAI I50.22 I26.99 L89.620 I45.3 Office Visit 10/04/2015 3:00p [facility], 42790 I35.0 Shuttle Inspector At [facility] GENEVIEVE CROCKER, FSCAI I50.22 L89.620 I26.99 I45.3 Office Visit 07/02/2015 1:40p [facility], 81347 424.1 Shuttle Inspector At [facility] GENEVIEVE CROCKER, FSCAI 428.22 415.19 426.54 Office Visit 05/02/2015 10:45a [facility], 41877 424.1 Shuttle Inspector At [facility] GENEVIEVE CROCKER, FSCAI 428.0 250.00 Office Visit 05/02/2015 10:59a [facility], Leigh Mast, 80357 415.19 Hospitalists M.DDustin 428.0 427.31 274.9 Office Visit 05/01/2015 10:59a [facility], Leigh Mast, 59543 415.19 Hospitalists M.D. 427.31 428.0 719.42 Office Visit 04/30/2015 12:53p [facility] Franc Julien, 90136 719.03 Infectious Diseases M.DDustin 719.43 415.11 790.4 Office Visit 04/30/2015 10:58a [facility], Leigh Mast, 22232 415.19 Hospitalists M.D. 428.0 427.31 719.42 Office Visit 04/29/2015 10:58a [facility], Leigh Mast, 56163 415.19 Hospitalists M.DDustin 428.0 427.31 038.9 Office Visit 04/29/2015 10:44a [facility], 84778 424.1 Shuttle Inspector At [facility] GENEVIEVE CROCKER, FSCAI 428.0 250.00 Office Visit 04/28/2015 10:57a [facility], Amy Gaffney, 24507 415.19 Hospitalists M.DDustin 427.31 428.0 261 Office Visit 04/27/2015 10:57a [facility],pc Amy Gaffney, 68010 415.19 Hospitalists M.DDustin 428.0 427.31 261 Office Visit 04/26/2015 11:06a [facility],pc Amy Gaffney, 46075 415.19 Hospitalists MDustinDDustin 427.31 428.0 261 Office Visit 04/25/2015 11:05a [facility],pc Amy Gaffney, 57579 415.19 Hospitalists MDustinDDustin 427.31 428.0 261 Office Visit 04/25/2015 10:47a [facility] Ashley M.D., 14771 424.1 Shuttle Inspector At [facility] 428.0 425.4 Office Visit 04/24/2015 11:05a [facility],pc Amy Gaffney, 60644 415.19 Hospitalists MGladys 427.31 428.0 261 Office Visit 04/23/2015 11:04a [facility], Amy Gaffney, 27120 415.19 Hospitalists MGladys 427.31 428.0 261 Office Visit 04/23/2015 3:43p [facility] Ashley M.D., 66385 427.32 Shuttle Inspector At [facility] 424.1 415.19 Office Visit 04/22/2015 10:12a [facility],vita Juan, 70309 415.19 Hospitalists MGladys 486 261 Office Visit 04/22/2015 3:39p [facility] Ashley M.D., 16524 424.1 Shuttle Inspector At [facility] Office Visit 04/21/2015 4:13p [facility] Kelly Tam, 97768 995.91 [facility], [facility] 790.99 786.09 786.59 Office Visit 04/21/2015 10:11a [facility],pc Glenn Juan, 14772 486 Hospitalists MGladys 415.19 038.9 790.6 Office Visit 04/20/2015 10:11a [facility],pc Glenn Juan, 26211 486 Hospitalists M.DDustin 415.19 790.6 038.9 Office Visit 04/20/2015 4:12p [facility] At [facility], 86208 995.91 KEVEN CROCKER, FACC, FSCAI 790.99 786.09 786.59 Office Visit 04/19/2015 10:10a [facility], Glenn Juan, 45771 486 Hospitalists MGladys 415.19 038.9 Office Visit 04/19/2015 4:11p [facility] At [facility], 85764 995.91 KEVEN CROCKER, FACC, FSCAI 790.99 786.09 786.59 Office Visit 04/18/2015 4:10p [facility] At [facility], 20901 995.91 KEVEN CROCKER, FACJean Pierre, FSCAI 790.99 786.09 786.59 Office Visit 04/18/2015 10:10a [facility], Glenn Juan, 72894 486 Hospitalists MGladys 415.19 038.9 790.6 Office Visit 04/17/2015 4:10p [facility] At [facility], 21867 995.91 KEVEN CROCKER, FACJean Pierre, FSCAI 790.99 786.09 786.59 Office Visit 04/17/2015 10:09a [facility], Amy Gaffney, 90499 415.19 Hospitalists M.DDustin 486 038.9 Office Visit 04/17/2015 10:03a [facility] Franc Julien, 43605 486 Infectious Diseases M.DDustin 415.19 250.00 Office Visit 04/16/2015 10:09a [facility], Amy Gaffney, 36635 486 Hospitalists M.D. 038.9 790.6 584.9 Office Visit 04/16/2015 4:09p [facility] At [facility], 34330 786.59 KEVEN CROCKER, FACC, FSCAI 786.09 995.91 790.99 995.91 790.99 786.59 Office Visit 04/15/2015 10:08a [facility], Amy Gaffney, 27918 486 Hospitalists M.D. 038.9 790.6 584.9 Office Visit 08/17/2014 8:40a Shuttle Inspector Internal Medicine Seth Nicolas M.D. 13110 401.9 - [place] 272.4 268.9 357.2 285.9 459.81 424.1 V06.6 250.60 454.1 V04.81 Office Visit 10/04/2012 1:00p Shuttle Inspector Internal Medicine - Hailey Montague M.D., 81732 V70.0 [place] FACP 250.00 401.1 272.0 709.8 V04.81 V06.1 268.9 Office Visit 08/17/2011 9:00a DO Not Use [facility] Hailey Clari, 19075 250.00 M.D., FACP 692.9 v04.81 Office Visit 07/02/2011 9:00a DO Not Use [facility] Hailey Clari, 03741 250.00 M.D., FACP 692.9 459.81 Office Visit 01/28/2011 1:30p DO Not Use [facility] Hailey Clari, 59726 401.1 M.D., FACP 272.0 250.00 274.11 356.8 V70.0 Office Visit 07/31/2010 10:15a DO Not Use [facility] Hailey Clari, 45124 250.00 M.D., FACP V04.81 401.1 272.0 Office Visit 01/28/2010 2:30p DO Not Use [facility] Hailey Clari, 29555 250.00 M.D., FACP 715.96 V04.81 Office Visit 07/11/2009 1:30p DO Not Use [facility] Hailey Clari, 06295 V70.0 M.D., FACP 250.00 715.90 530.81 V04.81 401.1 Office Visit 02/15/2009 1:45p DO Not Use [facility] Hailey Clari, 87746 250.00 M.D., FACP V05.8 Office Visit 06/12/2008 1:30p DO Not Use [facility] Hailey Clari, 53424 V70.0 M.D., FACP 250.00 424.1 Office Visit 02/28/2008 2:00p DO Not Use [facility] Hailey Clari, 76863 250.00 M.D., FACP 401.1 Office Visit 07/26/2007 10:45a DO Not Use [facility] Hailey Clari, 69121 424.1 M.D., FACP 250.00 Office Visit 04/14/2007 9:15a DO Not Use [facility] Hailey Clari, 42880 424.1 M.D., FACP 250.00 401.1 V70.0 Office Visit 09/10/2006 2:00p DO Not Use [facility]uttle [facility]-[place] Hailey Clari, 68511 250.00 M.D., FACP V04.81 Plan of Care Future Appointment(s):12/06/2017 3:00 pm - Kelly Tam MD, FACC, [facility] at [facility]/09/2017 - Yousif Alvarado M.D.I63.411 Cereb infrc due to embolism of right middle cerebral arteryFollow up:PRNI73.9 Peripheral vascular disease, unspecified
--- NOTE | 2017-11-27 14:28 | RAD ---
HISTORY: Left toe infection COMPARISONS: None VIEWS: 4, Frontal and lateral views of the left foot FINDINGS: BONE DENSITY: There is diffuse osteopenia. BONES: The patient is status post amputation of the distal second ray. There is remote post right deformity to the fifth digit. There is no appreciable erosion or periosteal reaction. JOINTS: There is osteoarthritis of the midfoot. ALIGNMENT: There is no dislocation. SOFT TISSUES: There is peripheral arterial calcification. OTHER FINDINGS: None. IMPRESSION: 1. OSTEOPENIA. 2. OSTEOARTHRITIS. 3. PERIPHERAL ARTERIAL DISEASE. 4. NO APPRECIABLE EROSION OR PERIOSTEAL REACTION. PLAIN FILM FINDINGS OF OSTEOMYELITIS ARE RELATIVELY LATE FINDINGS. IF THERE IS PERSISTENT CLINICAL CONCERN FOR OSTEOMYELITIS, RECOMMEND CORRELATION WITH FOLLOWUP IMAGING, THREE-PHASE BONE SCANNING, WHITE BLOOD CELL SCAN, AND/OR MRI OF THE AFFECTED REGION.
[2017-11-27 14:32] LABS: ABS Basophils 0.1 10^3/ul (0-0.2); ABS Eosinophils 0.3 10^3/ul (0-0.6); ABS Lymphocytes 1.2 10^3/ul (1.0-4.8); ABS Monocytes 0.9 10^3/ul (0-0.8); ABS Neutrophils 7.7 10^3/ul (1.5-7.7); ABS Nucleated RBC 0 10^3/ul; Eosinophil % 3.1 % (0-6); Hematocrit 37 % (42-52); Hemoglobin 12.6 g/dl (14.0-18.0); Mean Corpuscular HGB Conc 34 g/dl (31-36); Mean Corpuscular Hemoglobin 33 pg (27-31); Mean Corpuscular Volume 96 fL (80-94); Mean Platelet Volume 8 um3 (7.4-10.4); Nucleated Red Blood Cells % 0; Platelet Count 269 10^3/ul (150-450); Red Blood Count 3.83 10^6/ul (4.0-5.4); Red Cell Distribution Width 15 % (10.5-15); White Blood Count 10.2 10^3/ul (3.5-10.8)
[2017-11-27 14:47] LABS: EGFR Non-African American 52.6 (>60)
[2017-11-27 14:57] LABS: INR 1.23 (0.77-1.02)
[2017-11-27] MEDS ORDERED: oxyCODONE TAB* 5 MG TAB PO PRN (15:32)
[2017-11-27] MEDS ORDERED: Docusate CAP* 100 MG PO PRN (15:32)
[2017-11-27] MEDS ORDERED: Senna TAB PO PRN (15:32)
[2017-11-27] MEDS ORDERED: Dextrose 50% Syringe 50 ML* 25 GM/50 ML SYRINGE IV PUSH PRN (15:34)
[2017-11-27] MEDS ORDERED: Zosyn per Pharmacy* NOTE FOLLOW UP SCH (16:00)
[2017-11-27] MEDS ORDERED: Furosemide TAB* 20 MG PO SCH (16:00)
[2017-11-27] MEDS ORDERED: Furosemide TAB* 40 MG PO SCH (16:00)
[2017-11-27] MEDS ORDERED: Vancomycin(*) 1,250 MG in NS 0.9% 250 ML* 250 ML IVPB ONE (17:00)
--- NOTE | 2017-11-27 17:08 | ED ---
Gary Pierson Stephanie, scribed for Julián Weems on 11/27/17 at 1340 . Lower Extremity - HPI Summary HPI Summary: The pt is a 72 y/o M presenting to the ED with c/o L foot redness that was noticed earlier this morning. The pt reports that his nurse at [facility] said his L foot had more erythema than usual and suggested he come to the ED. The pt denies CP and fever. The pt had his toe amputated 10/28/17 at [facility]. The pt reports being at the wound clinic yesterday. - History of Current Complaint Stated Complaint: LT TOE INFECTION Time Seen by Provider: 11/27/17 13:20 Hx Obtained From: Patient Severity Currently: None Pain Intensity: 0 Pain Scale Used: 0-10 Numeric Associated Signs And Symptoms: Positive: Redness - on L foot Aggravating Factor(s): Nothing Alleviating Factor(s): Nothing Able to Bear Weight: Yes - Allergies/Home Medications Allergies/Adverse Reactions: Allergies Allergy/AdvReac Type Severity Reaction Status Date / Time Levofloxacin [From Levaquin] Allergy Unknown Verified 02/25/17 10:22 Reaction Details Home Medications: Home Medications Clopidogrel TAB* [Plavix TAB*] 75 mg PO DAILY 11/27/17 [History Confirmed ] Insulin GLARGINE(*) [Lantus(*)] 15 units SUBCUT BEDTIME 11/27/17 [History Confirmed 11/27/17] PMH/Surg Hx/FS Hx/Imm Hx Endocrine/Hematology History: Reports: Hx Diabetes Denies: Hx Anticoagulant Therapy, Hx Blood Disorders, Hx Blood Transfusions, Hx Bone Marrow Disease, Hx Systemic Lupus Erythematosus, Hx Sickle Cell Disease , Hx Thyroid Disease, Hx Anemia, Hx Unexplained Bleeding, Other Endocrine/ Hematological Disorders Cardiovascular History: Reports: Hx Deep Vein Thrombosis - 2001, Hx Hypertension , Other Cardiovascular Problems/Disorders - CHF, ATRIAL FLUTTER, SEVERE AORTIC STENOSIS-SEES DR. GRAHAM Denies: Hx Aneurysm, Hx Angina, Hx Angioplasty, Hx Auto Implanted Cardiovert Defib, Hx Cardiac Arrest, Hx Cardiomegaly, Hx Congenital Heart Disease, Hx Congestive Heart Failure, Hx Coronary Artery Disease, Hx Embolism, Hx Hypercholesterolemia, Hx Hypotension, Hx Pacemaker/ICD, Hx Peripheral Vascular Disease, Hx Rheumatic Fever, Hx Syncope, Hx Valvular Heart Disease Respiratory History: Reports: Hx Pneumonia, Hx Pulmonary Edema - APRIL 2015, Other Respiratory Problems/Disorders - SEPSIS / PNEUMONIA-APRIL 2015 Denies: Hx Asthma, Hx Chronic Bronchitis, Hx Chronic Obstructive Pulmonary Disease (COPD), Hx Cystic Fibrosis, Hx Lung Cancer, Hx Pleural Effusion, Hx Pulmonary Embolism, Hx Seasonal Allergies, Hx Sleep Apnea GI History: Denies: Hx Cirrhosis, Hx Crohn's Disease, Hx Diverticulosis, Hx Gall Bladder Disease, Hx Gastroesophageal Reflux Disease, Hx Gastrointestinal Bleed, Hx Hiatal Hernia, Hx Irritable Bowel, Hx Jaundice, Hx Obstructive Bowel, Hx Ileostomy, Hx Pyloric Stenosis, Hx Ulcer, Other GI Disorders History: Reports: Hx Acute Renal Failure, Hx Kidney Stones - LEFT SIDE- CURRENTLY-NOT BOTHERING HIM, Hx Renal Disease - KIDNEY STONES Denies: Hx Benign Prostatic Hyperplasia, Hx Chronic Renal Failure, Hx Dialysis, Hx Kidney Infection, Other Problems/Disorders Musculoskeletal History: Reports: Hx Arthritis - BILAT HIP REPLACEMENT/RIGHT NEEDS TO BE REDONE, Hx Back Problems - chronic back pain Denies: Hx Bursitis, Hx Congenital Bone Abnormalities, Hx Fibromyalgia, Hx Gout, Hx Orthopedic Injury, Hx Osteoporosis, Hx Scoliosis, Hx Tendonitis, Other Musculoskeletal History Sensory History: Reports: Hx Cataracts - BILAT., Hx Contacts or Glasses - GLASSES, Hx Macular Degeneration, Hx Vision Problem, Other Sensory Impairments - 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 Denies: Hx Dementia, Hx Developmental Delay, Hx Headaches, Hx Migraine, Hx Nerve Disease, Hx Seizures, Hx Transient Ischemic Attacks (TIA) Psychiatric History: Denies: Hx Anxiety, Hx Attention Deficit Hyperactivity Disorder, Hx Eating Disorder, Hx Depression, Hx Panic Disorder, Hx Post Traumatic Stress Disorder, Hx Inpatient Treatment, Hx Community Mental Health Tx, Hx Schizophrenia, Hx Bipolar Disorder, Hx Suicide Attempt, Hx of Violent Episodes Against Others, Hx Substance Abuse, Other Psychiatric Issues/Disorders - Surgical History Surgery Procedure, Year, and Place: Bilateral hip replacement 2001, 2002. HEART VALVE REPLACEMENT- TRIFECTA TISSUE HEART VALVE Hx Anesthesia Reactions: No Infectious Disease History: No Infectious Disease History: Denies: Hx Clostridium Difficile, Hx Hepatitis, Hx Human Immunodeficiency Virus (HIV), Hx of Known/Suspected MRSA, Hx Shingles, Hx Tuberculosis, Hx Known/ Suspected VRE, Hx Known/Suspected VRSA, Traveled Outside the [place] in Last 30 Days - Family History Known Family History: Positive: Other - Negative: anaestethic reaction - Social History Occupation: Retired Lives: At [facility] Alcohol Use: None Substance Use Type: Reports: None Smoking Status (MU): Never Smoked Tobacco Have You Smoked in the Last Year: No Review of Systems Negative: Fever Negative: Chest Pain Positive: Other - Erythema over L foot All Other Systems Reviewed And Are Negative: Yes Physical Exam - Summary Physical Exam Summary: Appearance: Well appearing, no pain distress Skin: warm, dry, reflects adequate perfusion Head/face: normal Eyes: EOMI, EM ENT: normal Neck: supple, non-tender Respiratory: CTA, breath sounds present Cardiovascular: RRR, pulses symmetrical Abdomen: non-tender, soft Bowel: present Musculoskeletal: strength/ROM intact, amputated second toe on L foot. Redness and swelling on L foot Neuro: normal, sensory motor intact, A&Ox3 Triage Information Reviewed: Yes Vital Signs On Initial Exam: Initial Vitals Temp Pulse Resp BP Pulse Ox 97.3 F 101 16 136/89 99 11/27/17 13:24 11/27/17 13:24 11/27/17 13:24 11/27/17 13:24 11/27/17 13:24 Vital Signs Reviewed: Yes Diagnostics - Vital Signs Vital Signs Temp Pulse Resp BP Pulse Ox 11/27/17 13:24 97.3 F 101 16 136/89 99 - Laboratory Lab Results: Lab Results 11/27/17 11/27/17 11/27/17 Range/Units 14:20 14:20 14:20 WBC 10.2 (3.5-10.8) 10^3/ul RBC 3.83 L (4.0-5.4) 10^6/ul Hgb 12.6 L (14.0-18.0) g/dl Hct 37 L (42-52) % MCV 96 H (80-94) fL MCH 33 H (27-31) pg MCHC 34 (31-36) g/dl RDW 15 (10.5-15) % Plt Count 269 (150-450) 10^3/ul MPV 8 (7.4-10.4) um3 Neut % (Auto) 75.5 (38-83) % Lymph % (Auto) 12.0 L (25-47) % [place] % (Auto) 8.6 (1-9) % Eos % (Auto) 3.1 (0-6) % Baso % (Auto) 0.8 (0-2) % Absolute Neuts (auto) 7.7 (1.5-7.7) 10^3/ul Absolute Lymphs (auto) 1.2 (1.0-4.8) 10^3/ul Absolute Monos (auto) 0.9 H (0-0.8) 10^3/ul Absolute Eos (auto) 0.3 (0-0.6) 10^3/ul Absolute Basos (auto) 0.1 (0-0.2) 10^3/ul Absolute Nucleated RBC 0 10^3/ul Nucleated RBC % 0 INR (Anticoag Therapy) 1.23 H (0.77-1.02) APTT 34.1 (26.0-36.3) seconds Sodium 138 (133-145) mmol/L Potassium 4.2 (3.5-5.0) mmol/L Chloride 99 L (101-111) mmol/L Carbon Dioxide 31 (22-32) mmol/L Anion Gap 8 (2-11) mmol/L BUN 23 (6-24) mg/dL Creatinine 1.33 H (0.67-1.17) mg/dL Est GFR ( Amer) 67.6 (>60) Est GFR (Non-Af Amer) 52.6 (>60) BUN/Creatinine Ratio 17.3 (8-20) Glucose 198 H (70-100) mg/dL Calcium 9.2 (8.6-10.3) mg/dL Total Bilirubin 0.40 (0.2-1.0) mg/dL AST 16 (13-39) U/L ALT 20 (7-52) U/L Alkaline Phosphatase 92 (34-104) U/L Total Protein 7.2 (6.4-8.9) g/dL Albumin 3.3 (3.2-5.2) g/dL Globulin 3.9 (2-4) g/dL Albumin/Globulin Ratio 0.8 L (1-3) Result Diagrams: 11/27/17 14:20 11/27/17 14:20 Lab Statement: Any lab studies that have been ordered have been reviewed, and results considered in the medical decision making process. - Radiology Foot XRay Xray Interpretation: Positive (See Comments) Radiology Interpretation Completed By: Radiologist - 1. OSTEOPENIA. 2. OSTEOARTHRITIS. 3. PERIPHERAL ARTERIAL DISEASE. 4. NO APPRECIABLE EROSION OR PERIOSTEAL REACTION. PLAIN FILM FINDINGS OF OSTEOMYELITIS ARE RELATIVELY LATE FINDINGS. IF THERE IS PERSISTENT CLINICAL CONCERN FOR OSTEOMYELITIS, RECOMMEND CORRELATION WITH FOLLOWUP IMAGING, THREE-PHASE BONE SCANNING, WHITE BLOOD CELL SCAN, AND/OR MRI OF THE AFFECTED REGION. Lower Extremity Course/Dx - Course Course Of Treatment: The pt is a 72 y/o M presenting to the ED with c/o L foot redness that was noticed earlier this morning. Hospitalist agrees to admit pt to hospital. - Diagnoses Differential Diagnosis/HQI/PQRI: Positive: Infection, Osteomyelitis, Other - diabetic foot Provider Diagnoses: Diabetic foot, Foot ulcer due to secondary DM, rule out osteomyelitis - Physician Notifications Discussed Care Of Patient With: Russell Licea MD - Advises to admit pt. Time Discussed With Above Provider: 16:59 Discharge - Discharge Plan Condition: Stable Disposition: ADMITTED TO [facility] documentation as recorded by the Gary daniels Stephanie accurately reflects the service I personally performed and the decisions made by , Julián Weems.
[2017-11-27] MEDS: Triamcinolone 0.5% OINT * 15 GM TUBE TOPICAL SCH ×2 (18:18→20:49)
[2017-11-27] MEDS: Furosemide TAB* 20 MG PO SCH (18:22)
[2017-11-27] MEDS: Insulin LISPRO* 1 UNITS UNIT SUBCUT SCH (18:35)
[2017-11-27] MEDS ORDERED: Vancomycin per Pharmacy* NOTE FOLLOW UP PRN (19:24)
[2017-11-27] MEDS: Piperacillin/Tazobactam 13.5 GM IV 24 hour continuous infusion IVPB SCH ×2 (19:51)
[2017-11-27] MEDS: Ascorbic Acid TAB* 500 MG PO SCH (20:41)
[2017-11-27] MEDS: oxyCODONE TAB* 5 MG TAB PO SCH (20:41)
[2017-11-27] MEDS: Magnesium Oxide TAB* 400 MG PO SCH (20:41)
[2017-11-27] MEDS: Metoprolol Tartrate TAB* 25 MG PO SCH (20:42)
[2017-11-27] MEDS: Insulin GLARGINE(*) 1 UNITS UNIT SUBCUT SCH (20:43)
--- NOTE | 2017-11-27 22:32 | HP ---
CC: Dr. Azevedo at [facility] MEDICINE HISTORY AND PHYSICAL: DATE OF ADMISSION: 11/27/17 PRIMARY CARE PROVIDER: Dr. Azevedo at [facility]. ATTENDING PHYSICIAN: Dr. Semaj Licea * (dictation provided by Yolanda Kerr NP). CHIEF COMPLAINT: Concern for worsening redness and chronic left toe ulceration. HISTORY OF PRESENT ILLNESS: Mr. Cardoza is a 72-year-old male with a past medical history of peripheral vascular disease and chronic osteomyelitis of the left first and second toes, status post amputation of the left second toe with Dr. Márquez in [place]. He also has a history of CVA, history of PEs, aortic stenosis with aortic valve replacement, right hip surgery complicated by right hip wound infection and type 2 diabetes. Mr. Cardoza was last evaluated by Dr. Márquez about a week ago. At that time, she felt that things were healing well and the patient was allowed to advance to weightbearing as tolerated. On Wednesday of this past week, the patient saw the wound care nurses, who apparently had no issue at that point with status of the foot. However, today nursing staff at [facility] evaluated the wound and felt that it was suddenly much worse in terms of redness and eschar and therefore had him sent to the emergency room for evaluation. Mr. Cardoza is an excellent historian, but is not able to clarify whether or not the wound actually looks any worse than usual. He denies any pain in the foot. He has had no fever. His only other complaint other than this chronic infection has been that he has been having some difficulty swallowing. Initially, thought to be secondary to his dislike for the food at [facility], but now seems to be happening more frequently even with other types of food. In the emergency room, Mr. Cardoza's foot was examined, it is erythematous. There is some eschar most notably to the left great toe and some eschar along the suture line of the second toe. There is no drainage. There are good pulses obtainable with the Doppler. His labs show no leukocytosis. He has no fever. PAST MEDICAL HISTORY: 1. Amputation to left second toe by Dr. Márquez. 2. Chronic osteo to left first and second toes. 3. Peripheral vascular disease. 4. Aortic valve stenosis with replacement with TAVR in December of 2015. 5. Right hip surgery in 2016, complicated by right hip wound infection. 6. Type 2 diabetes, insulin dependent. 7. Hypertension. 8. Chronic back pain. 9. Nephrolithiasis. 10. DVT. 11. CKD stage 2. MEDICATIONS: 1. Tylenol 1000 mg p.o. q.8 hours p.r.n. 2. Cholecalciferol 50,000 units p.o. daily. 3. Cyanocobalamin 1000 mcg p.o. daily. 4. Diphenhydramine 25 mg p.o. b.i.d. 5. Metformin 1000 mg p.o. b.i.d. 6. Ascorbic acid 500 mg p.o. b.i.d. 7. Aspirin 81 mg p.o. daily. 8. Clopidogrel 75 mg p.o. daily. 9. Ferrous sulfate 325 mg p.o. daily. 10. Furosemide 40 mg alternating with 80 mg. 11. Lantus insulin 15 units subcutaneously at bedtime. 12. Losartan 25 mg p.o. daily. 13. Magnesium oxide 400 mg p.o. b.i.d. 14. Metoprolol tartrate 25 mg p.o. b.i.d. 15. Omeprazole 20 mg p.o. daily. 16. Oxycodone 5 mg p.o. q.4 hours p.r.n. and 5 mg p.o. at bedtime scheduled. 17. Potassium chloride 20 mEq p.o. daily. 18. Rivaroxaban 20 mg p.o. daily. 19. Senna 2 tabs p.o. daily p.r.n. 20. Sennosides-Docusate 2 tabs p.o. daily p.r.n. 21. Triamcinolone cream topically 4 times a day. ALLERGIES: To LEVOFLOXACIN. FAMILY HISTORY: Positive for father with history of CHF and brother for diabetes. SOCIAL HISTORY: The patient has been single all his life. 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 His surrogate decision making person is his nephew from [place], Alvaro Nani. REVIEW OF SYSTEMS: A 14-point review of systems was completed with Mr. Cardoza, and all those not mentioned above were negative. PHYSICAL EXAMINATION GENERAL: Mr. Cardoza is lying in the bed. He is in no acute distress. VITAL SIGNS: Temperature 97.3, pulse rate 82, respiratory rate 16, O2 saturation 97% on room air, blood pressure 114/72. LUNGS: Clear to auscultation bilaterally with no accessory muscle use. Good aeration. HEART: S1, S2. No murmur, rub, or gallop and regular. ABDOMEN: Soft, nontender with bowel sounds positive x4. EXTREMITIES: No cyanosis. Positive for 2+ edema in the lower extremities. NEURO: He is alert. He is oriented x3. He moves all extremities equally. There is no facial asymmetry or focal weakness. Extraocular movements are intact. SKIN: Bilateral lower extremities are dusky, but warm. There is dry skin, but no open area other than the left foot, which has a left great toe eschar to the tip. The left great toe nail is missing. The left second toe has a suture line with some eschar along the line, but no swelling. The foot is erythematous, specifically more around the second great toe, but it is difficult to know whether this is chronic or acute. LABORATORY DATA: Sodium 138, potassium 4.2, chloride 99, serum bicarbonate 31 , BUN 23, creatinine 1.33, glucose 198. INR 1.23. DIAGNOSTIC DATA: He also had a foot x-ray, which was read as follows: "Osteopenia, osteoarthritis, peripheral arterial disease, no appreciable erosion or periosteal reaction. Plain film findings of osteomyelitis, relatively late finding. If there is persistent clinical concern for osteo, recommend correlation with followup imaging, 3-phase bone scanning, white blood cell scan and/or MRI of the affected region." ASSESSMENT: Mr. Cardoza is a 72-year-old male with peripheral vascular disease and diabetes, who has had an amputation to his left second toe with Dr. Márquez in [place], who presents today from [facility] with concern per nursing staff that the left foot is more erythematous and perhaps has worsening eschar. Our plans are for an inpatient admission as I expect his length of stay to be greater than 2 days for the followin. Left great toe ulcer with question of osteomyelitis: The patient has a chronic wound for few years. He was evaluated by Dr. Márquez just a week ago and by wound clinic yesterday; however, the nursing staff is clear at [facility] that there is something new and worsening about this wound. It is difficult for me to assess as this is the first time I have seen it. I have asked Dr. Kamara from Surgery to take a look and perhaps try to compare exam of the foot today with perhaps the pictures that were available at the wound clinic (I do not have access to these). Also, plan to have Dr. Julien from Infectious Disease see the patient on Wednesday. We will also write for a wound care consult. If the patient does in fact need further surgery, he will likely need to be transferred to [place] for vascular; but at this time, I do not see an indication for transfer as I am not clear that there is new or worsening infection. In the meantime, the patient does have a history of MRSA, and we will cover with vanco and Zosyn. The patient has a good blood flow with the Doppler. I see no indication that there is an acute issue with vascular flow at this point. 2. Type 2 diabetes: Plan to continue Lantus with lispro sliding scale. 3. Hypertension: Continue metoprolol and furosemide. 4. History of deep venous thrombosis: Continue rivaroxaban. 5. Code status is full code. 6. Disposition to the medical floor. TIME SPENT: Approximately 60 minutes were spent on the admission of this patient, more than half of the time was spent with the patient at the bedside reviewing the events leading up to the hospitalization, performing the physical examination, and reviewing my plan of care. YOLANDA KERR, GABRIELLA [id number]/CPS #: [id number] CODY
[2017-11-28] MEDS: Vancomycin(*) 750 MG in NS 0.9% 250 ML* 250 ML IVPB SCH ×3 (02:07→18:45)
[2017-11-28] MEDS: Metoprolol Tartrate TAB* 25 MG PO SCH ×2 (08:14→21:49)
[2017-11-28] MEDS: Ascorbic Acid TAB* 500 MG PO SCH ×2 (08:14→21:49)
[2017-11-28] MEDS: Magnesium Oxide TAB* 400 MG PO SCH ×2 (08:14→21:49)
[2017-11-28] MEDS: CMC:Pantoprazole TAB (NF) 40 MG TAB PO SCH (08:14)
[2017-11-28] MEDS: Clopidogrel TAB* 75 MG PO SCH (08:14)
[2017-11-28] MEDS: Rivaroxaban TAB(*) 20 MG TAB PO SCH (08:14)
[2017-11-28] MEDS: Potassium Chlor TAB* 10 MEQ TAB.ER PO SCH (08:14)
[2017-11-28] MEDS: Losartan TAB* 25 MG PO SCH (08:14)
[2017-11-28] MEDS: Ferrous Sulfate TAB* 325 MG PO SCH (08:14)
[2017-11-28] MEDS: Aspirin Low Dose CHEW TAB* 81 MG PO SCH (08:15)
[2017-11-28] MEDS: Triamcinolone 0.5% OINT * 15 GM TUBE TOPICAL SCH ×4 (08:20→21:47)
[2017-11-28 08:33] LABS: EGFR Non-African American 54.4 (>60)
[2017-11-28] MEDS: Insulin LISPRO* 1 UNITS UNIT SUBCUT SCH ×3 (09:00→17:47)
--- NOTE | 2017-11-28 10:15 | CONSULT ---
Consult Consult: Surgery Consult Asked by Yolanda Kerr to evaluate Mr. Cardoza for a possible left great toe infection. Mr. Cardoza is well-known to me from wound center care. He is a 72 y.o. male who has had a prolonged course of care in an attempt to prevent amputation of a toe. This wound was first treated in 2016. He underwent multiple modalities including hyperbaric oxygen therapy and complex revascularization ultimately to allow healing of an amputation of this toe. The amputation took place on 10/28/17 per the pt. In 2016 he developed an ulcer on the tip of the left great toe. He has been managing the ulcer with iodosorb ointment. He was last seen 2 days ago in the wound center at which time some eschar was debrided. [facility] thought the ulcer looked a lot worse when the dressing was changed there yesterday, so he was sent to the ER. PMHx, Meds, SH, FH, ROS per Ms. Kerr' H&P PE: Left great has an ~ 2 cm eschar on the tip of the toe. It is dry, there is no obvious underlying moist wound, there is no surrounding erythema. The foot is slight edematous, there is no excess warmth to the toe or foot. I do not appreciate DP or PT pulses. I was able to access the wound center records and view a photo of this ulcer. It appears stable. Laboratory Results - last 24 hr 11/27/17 11/27/17 11/27/17 14:20 14:20 14:20 WBC 10.2 RBC 3.83 L Hgb 12.6 L Hct 37 L MCV 96 H MCH 33 H MCHC 34 RDW 15 Plt Count 269 MPV 8 Neut % (Auto) 75.5 Lymph % (Auto) 12.0 L Larue % (Auto) 8.6 Eos % (Auto) 3.1 Baso % (Auto) 0.8 Absolute Neuts (auto) 7.7 Absolute Lymphs (auto) 1.2 Absolute Monos (auto) 0.9 H Absolute Eos (auto) 0.3 Absolute Basos (auto) 0.1 Absolute Nucleated RBC 0 Nucleated RBC % 0 INR (Anticoag Therapy) 1.23 H APTT 34.1 Sodium 138 Potassium 4.2 Chloride 99 L Carbon Dioxide 31 Anion Gap 8 BUN 23 Creatinine 1.33 H Est GFR ( Amer) 67.6 Est GFR (Non-Af Amer) 52.6 BUN/Creatinine Ratio 17.3 Glucose 198 H POC Glucose (mg/dL) Calcium 9.2 Total Bilirubin 0.40 AST 16 ALT 20 Alkaline Phosphatase 92 Total Creatine Kinase Total Protein 7.2 Albumin 3.3 Globulin 3.9 Albumin/Globulin Ratio 0.8 L 11/27/17 11/28/17 11/28/17 18:25 06:44 08:14 WBC RBC Hgb Hct MCV MCH MCHC RDW Plt Count MPV Neut % (Auto) Lymph % (Auto) Larue % (Auto) Eos % (Auto) Baso % (Auto) Absolute Neuts (auto) Absolute Lymphs (auto) Absolute Monos (auto) Absolute Eos (auto) Absolute Basos (auto) Absolute Nucleated RBC Nucleated RBC % INR (Anticoag Therapy) APTT Sodium Potassium Chloride Carbon Dioxide Anion Gap BUN 25 H Creatinine 1.29 H Est GFR ( Amer) 70.0 Est GFR (Non-Af Amer) 54.4 BUN/Creatinine Ratio Glucose POC Glucose (mg/dL) 141 H 137 H Calcium Total Bilirubin AST ALT Alkaline Phosphatase Total Creatine Kinase 18 Total Protein Albumin Globulin Albumin/Globulin Ratio A/P: Probably stable ulcer of left great toe. At issue is whether there has been a failure of the revascularization leading to this ulcer, but by report of the pt., the blood supply to the foot was checked recently, before the left 2nd toe amputation. Would defer to vascular surgery with regard to possible need to re-check. For now would continue iodosorb ointment with dry gauze wrap for protection of the toe. CLFoster
--- NOTE | 2017-11-28 12:46 | PN ---
Subjective Date of Service: 11/28/17 Interval History: Patient admitted yesterday w/ LT great toe infection, gangrene, ?worsening. He is followed by wound clinic at [facility], sees Dr. Crocker generally, saw Dr. Love 2 days ago (notes not available.) Saw Dr. Márquez for vascular consult re LLE recently (notes not available.) Reports angioplasty in [place], referred from wound clinic (notes not available.) Patient is very irritated and frustrated that this does not seem to be coordinated. Denies pain in LLE. Family History: Unchanged from Admission Social History: Unchanged from Admission Past Medical History: Unchanged from Admission Objective Active Medications: Ascorbic Acid (Vitamin C Tab*) 500 mg PO BID [facility] Last Admin: 11/28/17 08:14 Dose: 500 mg Aspirin (Aspirin Low Dose Tab*) 81 mg PO DAILY [facility] Last Admin: 11/28/17 08:15 Dose: Not Given Clopidogrel Bisulfate (Plavix Tab*) 75 mg PO DAILY [facility] Last Admin: 11/28/17 08:14 Dose: 75 mg Dextrose (D50w Syringe 50 Ml*) 12.5 gm IV PUSH .FOR FS < 60 - SS PRN PRN Reason: FS < 60 Docusate Sodium (Colace Cap*) 2 mg PO DAILY PRN PRN Reason: CONSTIPATION Ferrous Sulfate (Ferrous Sulfate Tab*) 325 mg PO DAILY [facility] Last Admin: 11/28/17 08:14 Dose: 325 mg Furosemide (Lasix Tab*) 40 mg PO SUTUTHSA [facility] Last Admin: 11/27/17 18:22 Dose: 40 mg Furosemide (Lasix Tab*) 80 mg PO MOWEFR [facility] Piperacillin Sod/Tazobactam (Sod 13.5 gm/ Sodium Chloride) 500 mls @ 20.833 mls /hr IVPB Q24H [facility] Last Admin: 11/27/17 19:51 Dose: 20.833 mls/hr Vancomycin HCl 750 mg/ Sodium (Chloride) 250 mls @ 166.667 mls/hr IVPB Q8H [facility] Last Admin: 11/28/17 11:18 Dose: 166.667 mls/hr Insulin Glargine (Lantus(*)) 15 units SUBCUT BEDTIME [facility] Last Admin: 11/27/17 20:43 Dose: 15 units Insulin Human Lispro (Humalog*) 0 units SUBCUT AC [facility] PRN Reason: Protocol Last Admin: 11/28/17 12:37 Dose: 2 unit Losartan Potassium (Cozaar Tab*) 25 mg PO DAILY [facility] Last Admin: 11/28/17 08:14 Dose: 25 mg Magnesium Oxide (Magox 400 Tab*) 400 mg PO BID [facility] Last Admin: 11/28/17 08:14 Dose: 400 mg Metoprolol Tartrate (Lopressor Tab*) 25 mg PO BID [facility] Last Admin: 11/28/17 08:14 Dose: 25 mg Oxycodone HCl (Roxycodone Tab*) 5 mg PO BEDTIME [facility] Last Admin: 11/27/17 20:41 Dose: 5 mg Oxycodone HCl (Roxycodone Tab*) 5 mg PO Q4HR PRN PRN Reason: PAIN Pantoprazole Sodium (Protonix Tab (Nf)) 40 mg PO DAILY [facility] Last Admin: 11/28/17 08:14 Dose: 40 mg Pharmacy Consult (Zosyn Per Pharmacy*) 1 note FOLLOW UP .ZOSYN PER PHARMACY [facility] Pharmacy Consult (Vancomycin Per Pharmacy*) 1 note FOLLOW UP . PRN PRN Reason: PER PROTOCOL Pharmacy Profile Note (Vancomycin Trough Check) 1 note FOLLOW UP 1730 ONE Stop: 11/28/17 17:31 Potassium Chloride (Klor Con Er Tab*) 20 meq PO DAILY [facility] Last Admin: 11/28/17 08:14 Dose: 20 meq Rivaroxaban (Xarelto(*)) 20 mg PO DAILY [facility] Last Admin: 11/28/17 08:14 Dose: 20 mg Senna (Senokot Tab*) 2 tab PO DAILY PRN PRN Reason: CONSTIPATION Triamcinolone Acetonide (Triamcinolone 0.5% Oint *) 1 applic TOPICAL QID [facility] Last Admin: 11/28/17 08:20 Dose: Not Given Vital Signs - 8 hr 11/28/17 11/28/17 08:00 08:10 Temperature 36.7 C Pulse Rate 77 Respiratory 18 18 Rate Blood Pressure 112/71 (mmHg) O2 Sat by Pulse 98 Oximetry Oxygen Devices in Use Now: None Appearance: alert, awake Eyes: No Scleral Icterus Neck: NL Appearance and Movements; NL JVP Respiratory: Clear to Auscultation Cardiovascular: NL Sounds; No Murmurs; No JVD, RRR Abdominal: NL Sounds; No Tenderness; No Distention, No Hepatosplenomegaly Extremities: - - absent DP pulses bilat, LT great toe w/ black eschar at tip. LT 2nd toe amputated, RT foot w/ chronic ischemic changes Neurological: Alert and Oriented x 3 Lines/Tubes/Other Access: Clean, Dry and Intact Peripheral IV Nutrition: Taking PO's Result Diagrams: 11/27/17 14:20 11/28/17 06:44 Additional Lab and Data: Laboratory Tests 11/27/17 11/27/17 11/28/17 14:20 18:25 08:14 Glucose 198 H POC Glucose (mg/dL) 141 H 137 H 11/28/17 11:22 Glucose POC Glucose (mg/dL) 194 H Assess/Plan/Problems-Billing Assessment: 72 year old man with diabetes, PVD, admitted w/ possible worsening of LT great toe gangrene, possible infection - Patient Problems (1) Dry gangrene Current Visit: Yes Status: Acute Priority: High Code(s): I96 - GANGRENE, NOT ELSEWHERE CLASSIFIED SNOMED Code(s): 031725350 Comment: -Dr. Kamara's consult appreciated, not clearly worsened -Will communicate with Dr. Márquez and wound clinic to make plan -May need vascular consult from Dr. Dozier. -continue wound care and IV Zosyn/vancomycin (2) Type 2 diabetes mellitus Current Visit: No Status: Acute Priority: Medium Comment: -sugars adequately controlled to allow wound healing. -no change to medication doses today (3) Atrial flutter Current Visit: No Status: Acute Priority: Medium Code(s): I48.92 - UNSPECIFIED ATRIAL FLUTTER SNOMED Code(s): 5684395 Comment: -Rate controlled. Continue metoprolol. -Continue xarelto. (4) DVT prophylaxis Current Visit: Yes Status: Acute Priority: Low Code(s): ASC0543 - SNOMED Code(s): 784782659 Comment: -on Xarelto Status and Disposition: inpatient, limb ischemia w/ risk of amputation of LT great toe.
[2017-11-28] MEDS ORDERED: Vancomycin Trough Check NOTE FOLLOW UP ONE (17:30)
[2017-11-28] MEDS ORDERED: NS 0.9% 250 ML* 250 ML ONE (17:42)
[2017-11-28] MEDS: Furosemide TAB* 20 MG PO SCH (17:48)
[2017-11-28] MEDS: Insulin GLARGINE(*) 1 UNITS UNIT SUBCUT SCH (21:49)
[2017-11-28] MEDS: oxyCODONE TAB* 5 MG TAB PO SCH (21:49)
[2017-11-28] MEDS: Vancomycin(*) 1,250 MG in NS 0.9% 250 ML* 250 ML IVPB SCH (21:50)
[2017-11-28] MEDS: Piperacillin/Tazobactam 13.5 GM IV 24 hour continuous infusion IVPB SCH ×2 (21:50)
[2017-11-29 06:47] LABS: ABS Basophils 0.1 10^3/ul (0-0.2); ABS Eosinophils 0.4 10^3/ul (0-0.6); ABS Lymphocytes 1.7 10^3/ul (1.0-4.8); ABS Monocytes 0.9 10^3/ul (0-0.8); ABS Neutrophils 6.2 10^3/ul (1.5-7.7); ABS Nucleated RBC 0 10^3/ul; Eosinophil % 4.5 % (0-6); Hematocrit 35 % (42-52); Hemoglobin 11.8 g/dl (14.0-18.0); Lymphocyte % 17.9 % (25-47); Mean Corpuscular HGB Conc 34 g/dl (31-36); Mean Corpuscular Hemoglobin 32 pg (27-31); Mean Corpuscular Volume 96 fL (80-94); Mean Platelet Volume 8 um3 (7.4-10.4); Nucleated Red Blood Cells % 0.1; Platelet Count 273 10^3/ul (150-450); Red Blood Count 3.64 10^6/ul (4.0-5.4); Red Cell Distribution Width 15 % (10.5-15); White Blood Count 9.3 10^3/ul (3.5-10.8)
[2017-11-29 07:07] LABS: EGFR Non-African American 47.2 (>60)
[2017-11-29] MEDS: Insulin LISPRO* 1 UNITS UNIT SUBCUT SCH ×3 (09:13→17:13)
[2017-11-29] MEDS: Magnesium Oxide TAB* 400 MG PO SCH ×2 (09:21→20:58)
[2017-11-29] MEDS: Rivaroxaban TAB(*) 20 MG TAB PO SCH (09:22)
[2017-11-29] MEDS: Aspirin Low Dose CHEW TAB* 81 MG PO SCH ×2 (09:22→09:28)
[2017-11-29] MEDS: Ascorbic Acid TAB* 500 MG PO SCH ×2 (09:23→20:58)
[2017-11-29] MEDS: CMC:Pantoprazole TAB (NF) 40 MG TAB PO SCH (09:23)
[2017-11-29] MEDS: Ferrous Sulfate TAB* 325 MG PO SCH (09:23)
[2017-11-29] MEDS: Potassium Chlor TAB* 10 MEQ TAB.ER PO SCH (09:23)
[2017-11-29] MEDS: Losartan TAB* 25 MG PO SCH (09:23)
[2017-11-29] MEDS: Clopidogrel TAB* 75 MG PO SCH (09:23)
[2017-11-29] MEDS: Triamcinolone 0.5% OINT * 15 GM TUBE TOPICAL SCH ×4 (09:28→21:02)
[2017-11-29] MEDS: Metoprolol Tartrate TAB* 25 MG PO SCH ×2 (09:28→20:59)
[2017-11-29] MEDS: Vancomycin(*) 1,250 MG in NS 0.9% 250 ML* 250 ML IVPB SCH ×3 (09:31→21:01)
--- NOTE | 2017-11-29 12:14 | RAD ---
Indication: Evaluate for left foot osteomyelitis. Image sequences: Axial T1, STIR, sagittal T1, STIR, coronal T1 and STIR images were obtained. There is bone marrow edema and fluid signal in the distal tip of the distal phalanx of the great toe. This is consistent with osteomyelitis. There is bone marrow replacement noted. Additionally there is bone marrow replacement involving the proximal phalanx of the second digit. The second digit has been previously amputated. The third fourth and fifth digits demonstrates no evidence of osteomyelitis or bone marrow edema. No abnormal fluid collections are noted. IMPRESSION: BONE MARROW REPLACEMENT AND EDEMA IN THE DISTAL PHALANX OF THE GREAT TOE WELL IN THE PROXIMAL PHALANX OF THE SECOND TOE CONSISTENT WITH OSTEOMYELITIS. POSTOPERATIVE CHANGES OF THE SECOND DIGIT IS NOTED.
--- NOTE | 2017-11-29 13:43 | PN ---
Subjective Date of Service: 11/29/17 Interval History: Patient seen and examined at bedside. Denies fever, chills, shortness of breath , chest discomfort, N/V/D. Pt reports 1 loose stool today. Pt states that when asked the question do you have thoughts of harming your- self or others he answered he answered honestly. He states that he answered jokingly, "If I have 1 bullet I would use it on myself, if I had more, then that may be a different story". Pt then when on to say that of course he has though about taking his own life, but who hasn't at my age. Pt then stated that he felt like taking his own life after learning about the bone infection in his left foot. He also continued to tell me how he "wished he during is open heart surgery in 2016, while he was sleeping and didn't know the difference". Family History: Unchanged from Admission Social History: Unchanged from Admission Past Medical History: Unchanged from Admission Objective Active Medications: Ascorbic Acid (Vitamin C Tab*) 500 mg PO BID [facility] Aspirin (Aspirin Low Dose Tab*) 81 mg PO DAILY [facility] Clopidogrel Bisulfate (Plavix Tab*) 75 mg PO DAILY [facility] Dextrose (D50w Syringe 50 Ml*) 12.5 gm IV PUSH .FOR FS < 60 - SS PRN Reason: FS < 60 Docusate Sodium (Colace Cap*) 2 mg PO DAILY PRN Reason: CONSTIPATION Ferrous Sulfate (Ferrous Sulfate Tab*) 325 mg PO DAILY [facility] Furosemide (Lasix Tab*) 40 mg PO SUTUTHSA [facility] Furosemide (Lasix Tab*) 80 mg PO MOWEFR [facility] Piperacillin Sod/Tazobactam (Sod 13.5 gm/ Sodium Chloride) 500 mls @ 20.833 mls /hr IVPB Q24H [facility] Vancomycin HCl 1,250 mg/ (Sodium Chloride) 250 mls @ 166.667 mls/hr IVPB Q12HR [facility] Insulin Glargine (Lantus(*)) 15 units SUBCUT BEDTIME [facility] Insulin Human Lispro (Humalog*) 0 units SUBCUT AC [facility] Losartan Potassium (Cozaar Tab*) 25 mg PO DAILY [facility] Magnesium Oxide (Magox 400 Tab*) 400 mg PO BID [facility] Metoprolol Tartrate (Lopressor Tab*) 25 mg PO BID [facility] Oxycodone HCl (Roxycodone Tab*) 5 mg PO BEDTIME [facility] Oxycodone HCl (Roxycodone Tab*) 5 mg PO Q4HR PRN Reason: PAIN Pantoprazole Sodium (Protonix Tab (Nf)) 40 mg PO DAILY [facility] Pharmacy Consult (Zosyn Per Pharmacy*) 1 note FOLLOW UP .ZOSYN PER PHARMACY [facility] Pharmacy Consult (Vancomycin Per Pharmacy*) 1 note FOLLOW UP . PRN Pharmacy Profile Note (Vancomycin Trough Check) 1 note FOLLOW UP ONCE ONE Stop: 11/30/17 08:31 Potassium Chloride (Klor Con Er Tab*) 20 meq PO DAILY [facility] Rivaroxaban (Xarelto(*)) 20 mg PO DAILY [facility] Senna (Senokot Tab*) 2 tab PO DAILY PRN Reason: CONSTIPATION Triamcinolone Acetonide (Triamcinolone 0.5% Oint *) 1 applic TOPICAL QID [facility] Vital Signs - 8 hr 11/29/17 11/29/17 07:51 08:00 Temperature 97.3 F Pulse Rate 70 Respiratory 16 16 Rate Blood Pressure 119/66 (mmHg) O2 Sat by Pulse 97 Oximetry Oxygen Devices in Use Now: None Appearance: NAD, laying in bed Ears/Nose/Mouth/Throat: Mucous Membranes Moist Respiratory: Symmetrical Chest Expansion and Respiratory Effort, Clear to Auscultation Cardiovascular: NL Sounds; No Murmurs; No JVD, RRR Abdominal: NL Sounds; No Tenderness; No Distention Extremities: No Edema Skin: - - Dry gangrene to left 1st toe Neurological: Alert and Oriented x 3, NL Muscle Strength and Tone Lines/Tubes/Other Access: Clean, Dry and Intact Peripheral IV - site benign Nutrition: Taking PO's Result Diagrams: 11/29/17 06:39 11/29/17 06:39 Additional Lab and Data: Laboratory Tests 11/27/17 11/27/17 11/28/17 14:20 18:25 08:14 Glucose 198 H POC Glucose (mg/dL) 141 H 137 H 11/28/17 11:22 Glucose POC Glucose (mg/dL) 194 H Assess/Plan/Problems-Billing Assessment: Mr. Cardoza is a 72 year old man with PMH significant for diabetes, PVD, admitted w / possible worsening of LT great toe gangrene, possible infection. - Patient Problems (1) Osteomyelitis Code(s): M86.9 - OSTEOMYELITIS, UNSPECIFIED SNOMED Code(s): 00081435 Comment: - Left 1st and 2nd toes - Ortho will see Pt in the AM - Continue Vanco and chane zosyn to cefepime (2) Dry gangrene Code(s): I96 - GANGRENE, NOT ELSEWHERE CLASSIFIED SNOMED Code(s): 686033301 Comment: - Left great toe - Dr. Kamara's consult appreciated, not clearly worsened - MRI - distal great toe and proximal phalanx of second toe, ostromyelitis - May need vascular consult from Dr. Dozier - Continue wound care and vancomycin, change zosyn to cefepime (3) Suicidal ideation Code(s): R45.851 - SUICIDAL IDEATIONS SNOMED Code(s): 1509469 Comment: - Psych consult pending (4) ROLA (acute kidney injury) Code(s): N17.9 - ACUTE KIDNEY FAILURE, UNSPECIFIED SNOMED Code(s): 28007306 Comment: - Acute on chronic - Creatinine is elevated above baseline, suspect stage 2-3 at baseline - Will check FeNA (5) Type 2 diabetes mellitus Comment: - Glucose 130-240's - Continue to hold glipizide - Continue lantus and lispro SS (6) HTN (hypertension) Code(s): I10 - ESSENTIAL (PRIMARY) HYPERTENSION SNOMED Code(s): 27510299 Comment: - Normotensive - Continue metoprolol and lasix (7) Atrial flutter Code(s): I48.92 - UNSPECIFIED ATRIAL FLUTTER SNOMED Code(s): 9253122 Comment: - Rate controlled - Continue metoprolol and xarelto (8) History of DVT (deep vein thrombosis) Code(s): Z86.718 - PERSONAL HISTORY OF OTHER VENOUS THROMBOSIS AND EMBOLISM SNOMED Code(s): 797880723 Comment: - Continue xarelto (9) Severe aortic stenosis Code(s): I35.0 - NONRHEUMATIC AORTIC (VALVE) STENOSIS SNOMED Code(s): 54833854 Comment: - S/P TAVR (10) Systolic CHF Code(s): I50.20 - UNSPECIFIED SYSTOLIC (CONGESTIVE) HEART FAILURE SNOMED Code( s): 907907415 Comment: - Last EF 65% 10/2017 - Daily weights and strict I+O's - Continue Lasix (11) DVT prophylaxis Code(s): ILV9669 - SNOMED Code(s): 045723095 Comment: - Continue rivaroxaban. (12) Full code status Code(s): Z78.9 - OTHER SPECIFIED HEALTH STATUS SNOMED Code(s): 930030955 Status and Disposition: Inpatient. Pt with limb ischemia w/ risk of amputation of LT great toe.
[2017-11-29] MEDS: Furosemide TAB* 40 MG PO SCH (17:13)
[2017-11-29] MEDS: Cefepime 2 GM in Dextrose(*) 2 GM/50 ML BAG IV SCH (18:35)
[2017-11-29] MEDS ORDERED: Loperamide CAP* 2 MG PO PRN (18:42)
[2017-11-29] MEDS: oxyCODONE TAB* 5 MG TAB PO SCH (20:59)
[2017-11-29] MEDS: Insulin GLARGINE(*) 1 UNITS UNIT SUBCUT SCH (21:00)
--- NOTE | 2017-11-29 23:40 | CONS ---
CONSULTATION REPORT: DATE OF CONSULT: 11/27/17 ATTENDING CLINICIAN: Marian Allan NP. CONSULTING PHYSICIAN: Dinh Hudson MD. REASON FOR CONSULT: Suicidal and homicidal ideations. SUBJECTIVE HISTORY: Psychiatry is asked to see this 72-year-old single, homosexual white male who was a [employer] in the [employer], currently admitted to the hospitalist service secondary to infection of his left great toe. Apparently, the patient answered affirmative during a routine suicidal ideation screen, although he later denied suicidality. He made further statement to the attending clinician that he was having thoughts not only of hurting himself, but others. Specifically when asked about suicidal ideations, he reportedly stated "of course I have thought about it. Let me just put it this way. If I had one bullet then I would kill myself,, but if I had more bullets well that is a different story." This was interpreted as homicidality, which warranted further psychiatric evaluation. When I meet with the patient, he denied suicidal ideations and he is particularly upset that homicidality was attributed to him. He states that he would never consider harming another person, but he does admit that he has had a difficult treatment course over the last several years for such issues as a complicated right hip infection, aortic valve stenosis with replacement of a TAVR in December 2015, which was somehow complicated by perforation as well as peripheral vascular disease. The patient is frustrated that although he owns his own home in the [facility], he has been forced to live at [facility] for the past 2-1/2 years due to his inability to live independently. Mr. Cardoza is best described as a dissatisfied consumer of medical treatment. He goes to great lengths to describe various mistakes and evidence of lack of caring by various providers including [facility], [facility] and [facility]. He goes as far as reporting that he keeps a notebook to document all the various medical mistakes that he perceives himself as being a victim of. The patient is extremely sarcastic and irritable during our interview, at one point telling me that my conversation with him is making him more depressed than he otherwise would have been. I did screen him for neurovegetative symptoms of depression and he endorses some difficulty sleeping because of his medical issues as well as anhedonia. He denies guilt, but endorses poor energy and limited concentration. He also states that he has lost weight recently because he does not like the food at [facility]. The patient does admit to considering suicides in the past, but states that since he lacks the means he will not attempt. He did indicate that following his heart surgery at [facility] in 2016, he feels that he would have been better off had he during that procedure. Despite this, the patient denies any thoughts of active suicidality. When I offered him treatment in the form of an antidepressant, he declines this stating that I have misunderstood him and that the problem is not his mood but rather the poor treatment he has received in the medical setting. PAST PSYCHIATRIC HISTORY: The patient denies that he has ever been on antidepressive therapy. He denies past history of psychiatric hospitalizations or medications. He denies any history of abuse or traumatic brain injury. He denies any past history of attempted suicide or violence towards others. SUBSTANCE ABUSE HISTORY: The patient drinks socially, but denies illicit drug abuse or cigarette smoking. PAST MEDICAL HISTORY: Significant for amputation of left second toe, chronic infection to left first and second toes, peripheral vascular disease, aortic valve stenosis with replacement of TAVR in December 2015, right hip surgery in 2016 complicated by right hip wound infection, type 2 diabetes, insulin dependent, hypertension, chronic back pain, nephrolithiasis, DVT, chronic kidney disease, stage 2. MEDICATIONS: His medications include: 1. Tylenol. 2. Vitamin D. 3. Vitamin B12. 4. Benadryl. 5. Metformin. 6. Vitamin C. 7. Aspirin. 8. Plavix. 9. Iron. 10. Lasix. 11. Lantus insulin. 12. Losartan. 13. Magnesium oxide. 14. Metoprolol. 15. Omeprazole. 16. Oxycodone. 17. Potassium. 18. Rivaroxaban. 19. Senna. 20. Docusate. 21. Triamcinolone cream. ALLERGIES: He is allergic to LEVOFLOXACIN. FAMILY HISTORY: Noncontributory. SOCIAL HISTORY: The patient was born and raised in [facility] and has got a Ph.D. 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 The patient is single, never . No children. He identifies as homosexual. He is not mormonism or spiritual. He does own home in the [facility], but has been residing at [facility] due to recurrent mental problems. MENTAL STATUS EXAM: The patient is an aging white male who is obese with eye glasses, fair grooming. He is dressed in patient gown. The patient is propped up in his medical bed, makes good eye contact. His speech has a normal rate, tone, and volume. He is easily annoyed by this observer. Mood is dysphoric with constricted affect. Thought process is linear and goal directed. Thought content is significant for his derision of medical providers. The patient endorses historic suicidal ideations, but denies any current suicidal plan. He steadfastly denies homicidality. He denies auditory or visual hallucinations. Insight and judgment are somewhat limited given his refusal with antidepressant therapy. Cognitively, he is awake and alert with what would appear to be an average intellect. DIAGNOSES: Are as follows. Turin I: Major depressive disorder, single episode; moderate. Turin II: Narcissistic personality trait. 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 The patient meets criteria for a major depressive disorder, but is refusing care at this time. He denies acute risk to himself or others and declines the offer of voluntary psychiatric admission. My sense it that his underlying personality structure is fairly narcissistic and his chronic medical issues represent a narcissistic injury in that it renders him dependent on others for assistance and yet he has contempt for caregivers. Although I believe that he would benefit from a low dose antidepressant therapy, he is refusing this at this time. I do not believe that he warrants involuntary psychiatric treatment and I do not think that he would be a formal risk to himself or others. RECOMMENDATIONS TO PRIMARY TEAM: The patient does not require one-to-one observation, nor would he benefit from involuntary psychiatric treatment. I would continue to care as medically appropriate and continue to screen him for thoughts of self harm. Psychiatry is signing off at this time, but we can be reconsulted in the event that there is any significant change in his presentation. Thank you for the consult. [id number]/NITA #: [id number] CODY
[2017-11-30] MEDS: Cefepime 2 GM in Dextrose(*) 2 GM/50 ML BAG IV SCH ×2 (05:33→18:08)
[2017-11-30 06:44] LABS: ABS Basophils 0.1 10^3/ul (0-0.2); ABS Eosinophils 0.4 10^3/ul (0-0.6); ABS Lymphocytes 1.3 10^3/ul (1.0-4.8); ABS Monocytes 0.8 10^3/ul (0-0.8); ABS Neutrophils 6.5 10^3/ul (1.5-7.7); ABS Nucleated RBC 0 10^3/ul; Eosinophil % 4.6 % (0-6); Hematocrit 36 % (42-52); Hemoglobin 12.2 g/dl (14.0-18.0); Lymphocyte % 14.1 % (25-47); Mean Corpuscular HGB Conc 34 g/dl (31-36); Mean Corpuscular Hemoglobin 33 pg (27-31); Mean Corpuscular Volume 96 fL (80-94); Mean Platelet Volume 8 um3 (7.4-10.4); Nucleated Red Blood Cells % 0; Platelet Count 284 10^3/ul (150-450); Red Blood Count 3.73 10^6/ul (4.0-5.4); Red Cell Distribution Width 14 % (10.5-15); White Blood Count 9.1 10^3/ul (3.5-10.8)
[2017-11-30] MEDS: Insulin LISPRO* 1 UNITS UNIT SUBCUT SCH ×3 (08:05→18:09)
[2017-11-30] MEDS: Ascorbic Acid TAB* 500 MG PO SCH ×2 (09:28→20:51)
[2017-11-30] MEDS: Magnesium Oxide TAB* 400 MG PO SCH ×2 (09:28→20:52)
[2017-11-30] MEDS: Metoprolol Tartrate TAB* 25 MG PO SCH ×2 (09:28→20:52)
[2017-11-30] MEDS: Ferrous Sulfate TAB* 325 MG PO SCH (09:28)
[2017-11-30] MEDS: CMC:Pantoprazole TAB (NF) 40 MG TAB PO SCH (09:28)
[2017-11-30] MEDS: Clopidogrel TAB* 75 MG PO SCH (09:28)
[2017-11-30] MEDS: Potassium Chlor TAB* 10 MEQ TAB.ER PO SCH (09:29)
[2017-11-30] MEDS: Rivaroxaban TAB(*) 20 MG TAB PO SCH (09:29)
[2017-11-30] MEDS: Aspirin Low Dose CHEW TAB* 81 MG PO SCH (09:29)
[2017-11-30] MEDS: Losartan TAB* 25 MG PO SCH (09:29)
[2017-11-30] MEDS: Vancomycin Trough Check NOTE FOLLOW UP ONE ×2 (09:41→09:42)
[2017-11-30] MEDS: Triamcinolone 0.5% OINT * 15 GM TUBE TOPICAL SCH ×4 (09:41→20:46)
[2017-11-30] MEDS: Vancomycin(*) 1,250 MG in NS 0.9% 250 ML* 250 ML IVPB SCH (09:42)
--- NOTE | 2017-11-30 12:25 | CONSULT ---
Consult Consult: 11/30/17 Orthopedics Consult H&P Requesting service: medicine Chief Complaint: Left great toe ulceration. History:The patient is a 72M with DM, PVD, h/o left 2nd toe amputation in Oct 2017 at [facility] who p/w worsening left great toe ulcer and found to have underlying osteomyelitis. He reports that the ulcer on the tip of the great toe started in July 2017. Since that time, he has been followed at wound care for this. He had a left second toe ulcer about a year and a half ago, but developed osteomyelitis, and was treated with multiple courses of antibiotics without success. Therefore, in October 2017, he underwent a left second toe amputation by Dr. Márquez at [facility], a vascular surgeon. He has also had a couple of left lower extremity endovascular revascularizations in the last couple of years. Most recently, he reports, in [place], [place] last summer. He reports that the ulcer on the left toe has gradually increased in size since July. Denies any fevers or chills. Past medical history: Peripheral vascular disease, aortic valve stenosis with replacement, multiple hip surgeries, type 2 diabetes, hypertension, DVT, chronic kidney disease, history of ostium myelitis. 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 Single. Nonsmoker. Family history: CHF, and diabetes Review of Systems: . Negative for fever, recent visual changes, difficulty swallowing, chest pain, shortness of breath, abdominal pain, hematuria, easy bruising, diffuse weakness or lack of coordination, and diffuse rash. Physical Examination: Constitutional: Temp Pulse Resp BP Pulse Ox 97.5 F 61 16 131/64 98 11/30/17 08:02 11/30/17 08:02 11/30/17 08:02 11/30/17 08:02 11/30/17 08:02 General appearance is healthy and non-septic, in no acute distress. Cardiovascular: Pulse examination demonstrates nonpalpable pedal pulses. The foot is warm. There are no varicosities. Abdomen: Soft and nontender Lymphatic: No lymphadenopathy appreciated. Skin: No diffuse rash. Psychiatric / Neurological: He is somewhat antagonistic discussion. Alert and oriented to person, place and time. There is no significant abnormality in coordination appreciated. 2+ deep tendon reflex of the affected extremity. Musculoskeletal: Bilateral upper extremities and contralateral lower extremity show full range of motion with no evidence of instability and no tenderness with palpation and 5 /5 strength. There is no gross deformity. Sitting, there is 5/5 motor strength and impaired light touch sensation. There is no global swelling, edema, or varicosities. Painless active ankle range of motion. second toe is missing from the amputation, the incision site is well-healed without erythema. There is a quarter-sized ulcer on the tip of the hallux. There is no active drainage. Minimal surrounding erythema. Studies: MRI of the left foot reveals likely osteomyelitis of the hallux, distal phalanx. WBC 9 ESR 80 CRP 26 Impression and Plan: chronic left hallux ulcer, now with underlying hallux osteomyelitis. I had a very long discussion with Carlos about this diagnosis, prognosis, and treatment options today. Unfortunately, he has recently been through this with the second toe, and has a good understanding of toe ulcers and osteomyelitis. I think his options consist of trying to treat this conservatively with antibiotics and wound care Versus a partial hallux amputation. We discussed the risks and benefits, and potential pros and cons of each at length today. These included persistent infection regardless of treatment, need for further amputation, and even the potential for losing the limb. I gave him a lot to think about so I suggested he take some time to think about this. In the meantime, we should consult infectious diseases and the vascular team, preferably Dr. Tam as he knows Carlos. If Carlos decides that he would like to move forward with the partial hallux amputation, the xarelto would need to be stopped. I have discussed this with the hospitalist service. All questions were answered. Gurdeep Heck MD
--- NOTE | 2017-11-30 15:47 | PN ---
Subjective Date of Service: 11/30/17 Interval History: Patient seen and examined at bedside. Denies fever, chills, shortness of breath , chest discomfort, N/V/D. Pt states that he is very frustrated with the medical care that he has been receiving in the past few years. He is discouraged to hear that he may need to have another amputation. He questions if he should have a procedure here or go back to see Dr. Márquez. Family History: Unchanged from Admission Social History: Unchanged from Admission Past Medical History: Unchanged from Admission Objective Active Medications: Ascorbic Acid (Vitamin C Tab*) 500 mg PO BID [facility]ETER Aspirin (Aspirin Low Dose Tab*) 81 mg PO DAILY [facility] Clopidogrel Bisulfate (Plavix Tab*) 75 mg PO DAILY [facility] Dextrose (D50w Syringe 50 Ml*) 12.5 gm IV PUSH .FOR FS < 60 - SS PRN Reason: FS < 60 Docusate Sodium (Colace Cap*) 2 mg PO DAILY PRN Reason: CONSTIPATION Ferrous Sulfate (Ferrous Sulfate Tab*) 325 mg PO DAILY [facility] Furosemide (Lasix Tab*) 40 mg PO SUTUTHSA PIETER Furosemide (Lasix Tab*) 80 mg PO MOWEFR PIETER Cefepime HCl (Maxipime 2 Gm In Dextrose Duplex (*)) 2 gm in 50 mls @ 100 mls/ hr IV Q12H [facility] Vancomycin HCl 750 mg/ Sodium (Chloride) 250 mls @ 166.667 mls/hr IVPB Q18H [facility] Insulin Glargine (Lantus(*)) 15 units SUBCUT BEDTIME [facility] Insulin Human Lispro (Humalog*) 0 units SUBCUT AC [facility]ER Loperamide HCl (Imodium Cap*) 2 mg PO .SEE DIRECTIONS PRN Reason: DIARRHEA Losartan Potassium (Cozaar Tab*) 25 mg PO DAILY [facility] Magnesium Oxide (Magox 400 Tab*) 400 mg PO BID PIETER Metoprolol Tartrate (Lopressor Tab*) 25 mg PO BID PIETER Oxycodone HCl (Roxycodone Tab*) 5 mg PO BEDTIME [facility]ER Oxycodone HCl (Roxycodone Tab*) 5 mg PO Q4HR PRN Reason: PAIN Pantoprazole Sodium (Protonix Tab (Nf)) 40 mg PO DAILY [facility] Pharmacy Consult (Vancomycin Per Pharmacy*) 1 note FOLLOW UP . PRN Pharmacy Profile Note (Vancomycin Trough Check) 1 note FOLLOW UP 07 ONE Stop: 12/02/17 07:31 Potassium Chloride (Klor Con Er Tab*) 20 meq PO DAILY [facility] Rivaroxaban (Xarelto(*)) 20 mg PO DAILY [facility] Senna (Senokot Tab*) 2 tab PO DAILY PRN Reason: CONSTIPATION Triamcinolone Acetonide (Triamcinolone 0.5% Oint *) 1 applic TOPICAL QID [facility] Vital Signs - 8 hr 11/30/17 11/30/17 11/30/17 08:00 08:02 11:25 Temperature 97.5 F Pulse Rate 61 73 Respiratory 18 16 16 Rate Blood Pressure 131/64 121/68 (mmHg) O2 Sat by Pulse 98 97 Oximetry Oxygen Devices in Use Now: None Appearance: NAD, laying in bed Ears/Nose/Mouth/Throat: Mucous Membranes Moist Respiratory: Symmetrical Chest Expansion and Respiratory Effort, Clear to Auscultation Cardiovascular: NL Sounds; No Murmurs; No JVD, RRR Abdominal: NL Sounds; No Tenderness; No Distention Extremities: No Edema Skin: - - Area of dry gangrene to left 1st toe and healing incision to left 2nd toe Neurological: Alert and Oriented x 3, NL Muscle Strength and Tone Lines/Tubes/Other Access: Clean, Dry and Intact Peripheral IV - site benign Nutrition: Taking PO's Result Diagrams: 11/30/17 06:18 11/30/17 06:18 Additional Lab and Data: Laboratory Tests 11/27/17 11/27/17 11/28/17 14:20 18:25 08:14 Glucose 198 H POC Glucose (mg/dL) 141 H 137 H 11/28/17 11:22 Glucose POC Glucose (mg/dL) 194 H Assess/Plan/Problems-Billing Assessment: Mr. Cardoza is a 72 year old man with PMH significant for diabetes, PVD, admitted w / possible worsening of LT great toe gangrene, possible infection. - Patient Problems (1) Osteomyelitis Code(s): M86.9 - OSTEOMYELITIS, UNSPECIFIED SNOMED Code(s): 71257560 Comment: - Left 1st toe - Suspect seconadary to DM and vascular disease - Ortho consult, input appreciated. Possible OR on if Pt agrees - ID consult, input appreciated - Continue Vanco and cefepime (2) Dry gangrene Code(s): I96 - GANGRENE, NOT ELSEWHERE CLASSIFIED SNOMED Code(s): 651951014 Comment: - Left great toe - Dr. Kamara's consult appreciated, not clearly worsened - MRI - distal great toe and proximal phalanx of second toe ostromyelitis ( suspect 2nd toe is reactive from recent surgery) - Dr. Tam to consult in the AM - Continue wound care and vancomycin and cefepime (3) Suicidal ideation Code(s): R45.851 - SUICIDAL IDEATIONS SNOMED Code(s): 0390835 Comment: - Psych consult, input appreciated - Pt doesn't want to try antidepressants (4) CKD (chronic kidney disease) Code(s): N18.9 - CHRONIC KIDNEY DISEASE, UNSPECIFIED SNOMED Code(s): 340126386 Comment: - Creatinine improving - Suspect Pt is at his baseline (5) Type 2 diabetes mellitus Comment: - Glucose 110-290's - Continue to hold glipizide - Continue lantus and lispro SS (6) HTN (hypertension) Code(s): I10 - ESSENTIAL (PRIMARY) HYPERTENSION SNOMED Code(s): 85692367 Comment: - Normotensive - Continue metoprolol and lasix (7) Atrial flutter Code(s): I48.92 - UNSPECIFIED ATRIAL FLUTTER SNOMED Code(s): 1439931 Comment: - Rate controlled - Continue metoprolol and Lovenox (xarelto on hold for posisble surgery) (8) History of DVT (deep vein thrombosis) Code(s): Z86.718 - PERSONAL HISTORY OF OTHER VENOUS THROMBOSIS AND EMBOLISM SNOMED Code(s): 423649768 Comment: - Continue Lovenox (xarelto on hold for possible surgery) (9) Severe aortic stenosis Code(s): I35.0 - NONRHEUMATIC AORTIC (VALVE) STENOSIS SNOMED Code(s): 62004934 Comment: - S/P TAVR (10) Systolic CHF Code(s): I50.20 - UNSPECIFIED SYSTOLIC (CONGESTIVE) HEART FAILURE SNOMED Code( s): 071256190 Comment: - Last EF 65% 10/2017 - Daily weights and strict I+O's - Continue Lasix (11) DVT prophylaxis Code(s): DAQ5195 - SNOMED Code(s): 711310413 Comment: - Lovenox. (12) Full code status Code(s): Z78.9 - OTHER SPECIFIED HEALTH STATUS SNOMED Code(s): 217387335 Status and Disposition: Inpatient. Pt with limb ischemia w/ risk of amputation of LT great toe.
[2017-11-30] MEDS: Furosemide TAB* 20 MG PO SCH (18:09)
[2017-11-30] MEDS ORDERED: Vancomycin(*) 750 MG in NS 0.9% 250 ML* 250 ML IVPB SCH (20:00)
[2017-11-30] MEDS: oxyCODONE TAB* 5 MG TAB PO SCH (20:53)
[2017-11-30] MEDS ORDERED: Enoxaparin(*) 100 MG/ML SYR SUBCUT SCH (21:00)
[2017-11-30] MEDS: Insulin GLARGINE(*) 1 UNITS UNIT SUBCUT SCH (21:28)
--- NOTE | 2017-11-30 22:11 | CONS ---
CONSULTATION REPORT: DATE OF CONSULT: 11/30/17 REQUESTING PROVIDER: Marian Allan NP CONSULTING SERVICE: Infectious Disease. REASON FOR CONSULTATION: Left foot infection. IMPRESSION: 1. Left foot cellulitis resulting from left toe chronic ulcer, non-pressure related, diabetes related, MRI shows underlying osteomyelitis. 2. Second toe chronic osteomyelitis, status post amputation. MRI shows some bone marrow edema, which I think is reactive in nature due to recent surgery. 3. Peripheral vascular disease with a history of lower extremity stenting, June 2017, apparently has a Dopplerable pulse now. 4. Aortic valve stenosis, status post transaortic valve replacement. 5. Right hip surgery is complicated by right hip infection. 6. Insulin-dependent diabetes. 7. Chronic kidney disease. RECOMMENDATIONS: Continue cefepime and stop the vancomycin. I discussed with him, I think like his second toe, this is unlikely to be fixed with antibiotics alone and that the sooner he has surgery, the sooner this will be behind him. HISTORY OF PRESENT ILLNESS: This is a 72-year-old male with peripheral vascular disease, recent left second toe amputation after a long course of therapy for distal toe wound. The amputation site has healed. He has recently had a wound on the left great toe and then developed redness and purple discoloration through his dorsal forefoot and midfoot. He was routed over to the ER by [facility] when I saw that was changed, he had an MRI with findings as noted above. He was started on vancomycin and cefepime. Seen by Dr. Heck today. The redness has improved. He is thinking over surgical options with Dr. Heck. He has had no fevers, chills, or sweats. PAST MEDICAL HISTORY: 1. Peripheral vascular disease. 2. History of a left lower extremity endovascular stent. 3. Status post left great toe amputation. 4. Aortic stenosis, status post transaortic valve replacement. 5. Insulin-dependent diabetes. 6. Hypertension. 7. Chronic low back pain. 8. Nephrolithiasis. 9. History of DVT. 10. Stage 2 chronic kidney disease. ALLERGIES: LEVAQUIN. MEDICATIONS: 1. Vitamin C. 2. Plavix. 3. Enoxaparin. 4. Ferrous sulfate. 5. Furosemide. 6. Insulin glargine. 7. Loperamide. 8. Losartan. 9. Magnesium. 10. Cefepime 2 g every 12 hours. 11. Oxycodone. 12. Metoprolol. 13. Pantoprazole. 14. Senna. 15. Triamcinolone topical therapy. 16. Vancomycin 750 mg IV every 18 hours. SOCIAL HISTORY: He lives at [facility]. He has no travel or sick contacts. FAMILY HISTORY: No recurrent infections. REVIEW OF SYSTEMS: A 14-point review of systems is negative except as noted above. PHYSICAL EXAM: Vital Signs: Temperature is 36.4, heart rate 60, respiratory rate 16, blood pressure 130/60, oxygen saturation 98% on room air. In general, he is awake, not in distress. Neurologic: He is oriented x3. Follows all commands. He has decreased sensation to light touch in both feet. HEENT: There is no conjunctival hemorrhage. Oropharynx without lesions. Neck is supple. Lymph Nodes: There is no cervical, supraclavicular, inguinal, axillary , or epitrochlear lymphadenopathy. Heart has regular rate and rhythm without murmurs, rubs, or gallops. Lungs are clear to auscultation bilaterally. Abdomen: Soft, nontender, nondistended. There are bowel sounds present. Skin : There is no rash or splinter hemorrhages. Musculoskeletal: Left second toe is surgically absent. The amputation site is healed. The left great toe, there is a distal centimeter and half area of dry gangrene with surrounded mild erythema and edema. There is no crepitus or fluctuance. There is not a palpable pulse. DIAGNOSTIC STUDIES/LAB DATA: White blood cell count 9, hemoglobin 12, platelets 284. Creatinine is 1.3, CRP 26. Blood cultures are no growth for 3 days. Please see impressions and recommendations outlined above, which I discussed with Marian Allan NP. Thank you for asking me to see Mr. Cardoza in consultation. [id number]/CPS #: [id number] CODY
--- NOTE | 2017-12-01 03:37 | CONS ---
CC: [facility] * CONSULTATION REPORT: DATE OF CONSULT: 11/30/17 PROVIDER: Dr. Gurdeep Heck. PRIMARY CARE PROVIDER: Dr. Azevedo at [facility]. CHIEF COMPLAINT: Concern for worsening redness and chronic left toe ulceration. HISTORY OF PRESENT ILLNESS: Mr. Cardoza is a 72-year-old male with a past medical history of peripheral vascular disease and chronic osteomyelitis of his left first and second toes. He is status post amputation of the left second toe by Dr. Márquez in [place] on 10/28/17. Last followup visit was 11/19/17. He also has a history of CVA, PEs, aortic stenosis with aortic valve replacement, right hip surgery complicated by right wound infection, and type 2 diabetes. Last week, the patient was seen by wound care nurses, who did not report any concerns. On 11/27/17, nursing staff at [facility] evaluated the patient's wound and were concerned about the appearance of the eschar as well as redness of his foot, which prompted an emergency room evaluation. The patient is unsure whether he feels his foot looked any different than normal. He states that it is not painful, he does not feel feverish or have chills. At baseline, he has very decreased sensation of his lower extremities. He did have vascular intervention by Dr. Ruiz in [place] this past year. Vascular Dr. Tam from this hospital is also familiar with him. On 11/28/17, the patient was seen by Dr. Jessica Kamara, who is familiar with this patient from the wound clinic. She felt that the ulcer of his left great toe was probably stable, though it is undetermined whether his revascularization has failed. Her recommendation was to continue Iodosorb ointment with dry gauze wrap for protection of the toe. PAST MEDICAL HISTORY: Includes amputation of the left second toe by Dr. Koch; chronic osteo to left first and second toes; peripheral vascular disease; aortic valve stenosis with replacement in December of 2015; right hip surgery, 2016 , with wound infection as complication; type 2 diabetes; hypertension; chronic back pain; nephrolithiasis; DVT; chronic kidney disease. MEDICATIONS: As in chart. ALLERGIES: To LEVOFLOXACIN causing a rash. FAMILY HISTORY: Father with CHF, brother with diabetes. SOCIAL HISTORY: The patient does not smoke. He does not use drugs. He drinks alcohol socially. The patient is single. 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 His surrogate decision maker is his nephew from [place], Alvaro Cardoza. REVIEW OF SYSTEMS: General: The patient feels generally well. Denies fever or chills. Head: No headache. EENT: No changes in vision or hearing. Cardio : History of aortic valve replacement. No chest pain. Pulmonary: Chronic shortness of breath with exertion. No cough. GI: Diarrhea since starting antibiotics. No constipation. No abdominal pain. : No dysuria. Musculoskeletal: No complaints of joint or muscle pain. Neuro: Decreased sensation of bilateral lower extremities up the feet. Psych: The patient was evaluated by Psychiatry yesterday for suicidal statements. Vascular: HX Peripheral vascular disease with revascularization. Skin: Chronic venous stasis changes to the legs. Hematology: History of DVT. PHYSICAL EXAM: General: Mr. Cardoza is lying in bed, in no acute distress. He appears comfortable. Vital Signs: Temperature 97.5, pulse 61, respiratory rate 16, oxygen saturation 98%, blood pressure 131/64. Lungs: Clear to auscultation bilaterally. Heart: S1 and S2. Abdomen: Bowel sounds normoactive. Soft and nontender. No masses palpated. Musculoskeletal: Dorsiflexion and plantar flexion of bilateral ankles intact. Neuro: Decreased sensation throughout bilateral feet. Vascular: Chronic venous stasis hyperpigmentation throughout the lower legs. Skin: Lower extremities are dry and flaking, but there are no open areas of skin or laceration. There is an eschar at the left great toe measuring roughly 2 cm in diameter. It is covered in iodoform, it is dry without any drainage. There is no surrounding or streaking erythema. The toe and foot do not feel hot to the touch. The left foot is slightly erythematous, but this may be a chronic change. It is not warm to the touch. The left second toe is status post amputation. It is slightly erythematous, not warm or tender. No discharge. Vasc LLE: difficult to to palpate though 1+ DP/PT DIAGNOSTIC STUDIES/LAB DATA: Imaging: MRI of the left lower extremity: findings consistent with osteomyelitis of the distal phalanx of the great toe as well as in the proximal phalanx of the second toe Postoperative change of the second digit is noted. Hemoglobin 12.2, hematocrit 36, white count 9.1, ESR is pending. CRP 26.36. ASSESSMENT: Mr. Cardoza is a 72-year-old male with peripheral vascular disease and diabetes as well as osteomyelitis of his left great and second toe. PLAN: The patient will be seen by Dr. Heck either this afternoon or tomorrow morning. I have discussed with the patient that he likely needs surgical intervention for this problem. I have placed lab orders for an ESR as well as a CRP. He has been switched over to lovenox in the event that he will be having surgery. I have also consulted Dr. Tam, who the patient has seen in the past for vascular evaluation. He will continue care of the wound as directed by Dr. Jessica Kamara. ROSALBA AMBROSE [id number]/CPS #: [id number] MTDD
[2017-12-01] MEDS: Cefepime 2 GM in Dextrose(*) 2 GM/50 ML BAG IV SCH ×2 (05:46→18:21)
[2017-12-01] MEDS: Enoxaparin(*) 100 MG/ML SYR SUBCUT SCH ×2 (09:21→20:30)
[2017-12-01] MEDS: Magnesium Oxide TAB* 400 MG PO SCH ×2 (09:22→20:30)
[2017-12-01] MEDS: CMC:Pantoprazole TAB (NF) 40 MG TAB PO SCH (09:22)
[2017-12-01] MEDS: Losartan TAB* 25 MG PO SCH (09:22)
[2017-12-01] MEDS: Metoprolol Tartrate TAB* 25 MG PO SCH ×2 (09:22→20:30)
[2017-12-01] MEDS: Clopidogrel TAB* 75 MG PO SCH (09:22)
[2017-12-01] MEDS: Ferrous Sulfate TAB* 325 MG PO SCH (09:22)
[2017-12-01] MEDS: Potassium Chlor TAB* 10 MEQ TAB.ER PO SCH (09:23)
[2017-12-01] MEDS: Ascorbic Acid TAB* 500 MG PO SCH ×2 (09:23→20:29)
[2017-12-01] MEDS: Insulin LISPRO* 1 UNITS UNIT SUBCUT SCH ×3 (09:23→18:21)
[2017-12-01] MEDS: Triamcinolone 0.5% OINT * 15 GM TUBE TOPICAL SCH ×4 (09:45→20:31)
--- NOTE | 2017-12-01 15:24 | PN ---
Subjective Date of Service: 12/01/17 Interval History: Patient seen and examined at bedside. Denies fever, chills, shortness of breath , chest discomfort, N/V/D. Pt states that he is pleased that he has been able to talk with Dr. Márquez and Dr. Tam today about his diagnosis and treatment plan. Pt is also requesting to speak with Dr. Crocker. Pt continues to contemplate surgery vs IV ABX. Family History: Unchanged from Admission Social History: Unchanged from Admission Past Medical History: Unchanged from Admission Objective Active Medications: Ascorbic Acid (Vitamin C Tab*) 500 mg PO BID PIETER Clopidogrel Bisulfate (Plavix Tab*) 75 mg PO DAILY PIETER Dextrose (D50w Syringe 50 Ml*) 12.5 gm IV PUSH .FOR FS < 60 - SS PRN Reason: FS < 60 Docusate Sodium (Colace Cap*) 2 mg PO DAILY PRN Reason: CONSTIPATION Enoxaparin Sodium (Lovenox(*)) 100 mg SUBCUT Q12H PIETER Ferrous Sulfate (Ferrous Sulfate Tab*) 325 mg PO DAILY PIETER Furosemide (Lasix Tab*) 40 mg PO SUTUTHSA PIETER Furosemide (Lasix Tab*) 80 mg PO MOWEFR PIETER Cefepime HCl (Maxipime 2 Gm In Dextrose Duplex (*)) 2 gm in 50 mls @ 100 mls/ hr IV Q12H PIETER Insulin Glargine (Lantus(*)) 15 units SUBCUT BEDTIME PIETER Insulin Human Lispro (Humalog*) 0 units SUBCUT AC PIETER Loperamide HCl (Imodium Cap*) 2 mg PO .SEE DIRECTIONS PRN Reason: DIARRHEA Losartan Potassium (Cozaar Tab*) 25 mg PO DAILY PIETER Magnesium Oxide (Magox 400 Tab*) 400 mg PO BID PIETER Metoprolol Tartrate (Lopressor Tab*) 25 mg PO BID PIETER Oxycodone HCl (Roxycodone Tab*) 5 mg PO BEDTIME PIETER Oxycodone HCl (Roxycodone Tab*) 5 mg PO Q4HR PRN Reason: PAIN Pantoprazole Sodium (Protonix Tab (Nf)) 40 mg PO DAILY PIETER Potassium Chloride (Klor Con Er Tab*) 20 meq PO DAILY PIETER Senna (Senokot Tab*) 2 tab PO DAILY PRN Reason: CONSTIPATION Triamcinolone Acetonide (Triamcinolone 0.5% Oint *) 1 applic TOPICAL QID [facility] Vital Signs - 8 hr 12/01/17 08:00 Temperature 97.6 F Pulse Rate 75 Respiratory 18 Rate Blood Pressure 133/74 (mmHg) O2 Sat by Pulse 99 Oximetry Oxygen Devices in Use Now: None Appearance: NAD, sitting up in bed Ears/Nose/Mouth/Throat: Mucous Membranes Moist Respiratory: Symmetrical Chest Expansion and Respiratory Effort, Clear to Auscultation Cardiovascular: NL Sounds; No Murmurs; No JVD, RRR Extremities: - - No palpable DP pulse bilateral Skin: - - Dry gangrene ulcer to tip of left 1st toe. Left 2nd toe with healing ulcer. Chronic ischemic changes to bilateral LE Neurological: Alert and Oriented x 3, NL Muscle Strength and Tone Lines/Tubes/Other Access: Clean, Dry and Intact Peripheral IV - site benign Nutrition: Taking PO's Result Diagrams: 11/30/17 06:18 11/30/17 06:18 Additional Lab and Data: Laboratory Tests 11/27/17 11/27/17 11/28/17 14:20 18:25 08:14 Glucose 198 H POC Glucose (mg/dL) 141 H 137 H 11/28/17 11:22 Glucose POC Glucose (mg/dL) 194 H Assess/Plan/Problems-Billing Assessment: Mr. Cardoza is a 72 year old man with PMH significant for diabetes, PVD, admitted w / possible worsening of LT great toe gangrene, possible infection. - Patient Problems (1) Osteomyelitis Code(s): M86.9 - OSTEOMYELITIS, UNSPECIFIED SNOMED Code(s): 74968045 Comment: - Left 1st toe - Suspect seconadary to DM and vascular disease - Ortho consult, input appreciated. Possible OR on if Pt agrees - ID consult, input appreciated - Continue cefepime (2) Dry gangrene Code(s): I96 - GANGRENE, NOT ELSEWHERE CLASSIFIED SNOMED Code(s): 905947473 Comment: - Left great toe - Dr. Kamara's consult appreciated, not clearly worsened - MRI - distal great toe and proximal phalanx of second toe ostromyelitis ( suspect 2nd toe is reactive from recent surgery) - Interventional cardiology, Dr. Tam consulted, input appreciated - Continue wound care and cefepime (3) Suicidal ideation Code(s): R45.851 - SUICIDAL IDEATIONS SNOMED Code(s): 2222396 Comment: - Psych consult, input appreciated - Pt doesn't want to try antidepressants (4) CKD (chronic kidney disease) Code(s): N18.9 - CHRONIC KIDNEY DISEASE, UNSPECIFIED SNOMED Code(s): 738565512 Comment: - Creatinine improving - Suspect Pt is at his baseline (5) Type 2 diabetes mellitus Comment: - Glucose 110-290's - Continue to hold glipizide - Continue lantus and lispro SS (6) HTN (hypertension) Code(s): I10 - ESSENTIAL (PRIMARY) HYPERTENSION SNOMED Code(s): 92021766 Comment: - Normotensive - Continue metoprolol and lasix (7) Atrial flutter Code(s): I48.92 - UNSPECIFIED ATRIAL FLUTTER SNOMED Code(s): 7308730 Comment: - Rate controlled - Continue metoprolol and Lovenox (xarelto on hold for posisble surgery) (8) History of DVT (deep vein thrombosis) Code(s): Z86.718 - PERSONAL HISTORY OF OTHER VENOUS THROMBOSIS AND EMBOLISM SNOMED Code(s): 298214239 Comment: - Continue Lovenox (xarelto on hold for possible surgery) (9) Severe aortic stenosis Code(s): I35.0 - NONRHEUMATIC AORTIC (VALVE) STENOSIS SNOMED Code(s): 08471687 Comment: - S/P TAVR (10) Systolic CHF Code(s): I50.20 - UNSPECIFIED SYSTOLIC (CONGESTIVE) HEART FAILURE SNOMED Code( s): 844413881 Comment: - Last EF 65% 10/2017 - Daily weights and strict I+O's - Continue Lasix (11) DVT prophylaxis Code(s): JZR8361 - SNOMED Code(s): 411972202 Comment: - Lovenox. (12) Full code status Code(s): Z78.9 - OTHER SPECIFIED HEALTH STATUS SNOMED Code(s): 209928574 Status and Disposition: Inpatient. Suspect Pt will require [facility] IV ABX and possible toe amputation. Discharge back to [facility] when medically stable.
--- NOTE | 2017-12-01 16:26 | PN ---
Progress Note - Progress Note Date of Service: 12/01/17 SOAP: Subjective: []Patient seen at bedside. He denies LLE pain or increased redness. He was seem by Dr Tam and discussed his clinical scenario with Dr. Márquez today. He confirms feeling much more informed, but still desires to see Dr. Crocker prior to making a final decision. Patient's greatest concern is why he required a vascular surgeon previously, but it is not necessary at this time. Objective: []General: Well appearing, NAD LLE: Black eschar of left great toe, quarter sized. No surrounding erythema or warmth. No discharge. BL LE: Chronic hyperpigmentation of lower legs Vital Signs Temp 98.0 F 12/01/17 15:37 Pulse 74 12/01/17 15:37 Resp 18 12/01/17 15:37 BP 126/59 12/01/17 15:37 Pulse Ox 97 12/01/17 15:37 Intake & Output 11/30/17 12/01/17 12/01/17 18:59 06:59 18:59 Intake Total 620 423 200 Output Total 450 1300 250 Balance 170 -877 -50 Weight 214 lb 14.4 oz Intake: IV Fluids 123 ABX - CEFEPIME 123 Oral 620 300 200 Output: Urine 450 1300 250 Other: Estimated Void Medium # Bowel Movements 0 Estimated Stool Amount Medium # Voids 1 Laboratory Last Values WBC 9.1 10^3/ul (3.5-10.8) 11/30/17 06:18 RBC 3.73 10^6/ul (4.0-5.4) L 11/30/17 06:18 Hgb 12.2 g/dl (14.0-18.0) L 11/30/17 06:18 Hct 36 % (42-52) L 11/30/17 06:18 MCV 96 fL (80-94) H 11/30/17 06:18 MCH 33 pg (27-31) H 11/30/17 06:18 MCHC 34 g/dl (31-36) 11/30/17 06:18 RDW 14 % (10.5-15) 11/30/17 06:18 Plt Count 284 10^3/ul (150-450) 11/30/17 06:18 MPV 8 um3 (7.4-10.4) 11/30/17 06:18 Neut % (Auto) 71.6 % (38-83) 11/30/17 06:18 Lymph % (Auto) 14.1 % (25-47) L 11/30/17 06:18 Toole % (Auto) 8.9 % (1-9) 11/30/17 06:18 Eos % (Auto) 4.6 % (0-6) 11/30/17 06:18 Baso % (Auto) 0.8 % (0-2) 11/30/17 06:18 Absolute Neuts (auto) 6.5 10^3/ul (1.5-7.7) 11/30/17 06:18 Absolute Lymphs (auto) 1.3 10^3/ul (1.0-4.8) 11/30/17 06:18 Absolute Monos (auto) 0.8 10^3/ul (0-0.8) 11/30/17 06:18 Absolute Eos (auto) 0.4 10^3/ul (0-0.6) 11/30/17 06:18 Absolute Basos (auto) 0.1 10^3/ul (0-0.2) 11/30/17 06:18 Absolute Nucleated RBC 0 10^3/ul 11/30/17 06:18 Nucleated RBC % 0 11/30/17 06:18 ESR 80 mm/Hr (0-40) H 11/30/17 06:18 INR (Anticoag Therapy) 1.23 (0.77-1.02) H 11/27/17 14:20 APTT 34.1 seconds (26.0-36.3) 11/27/17 14:20 Sodium 138 mmol/L (133-145) 11/30/17 06:18 Potassium 3.5 mmol/L (3.5-5.0) 11/30/17 06:18 Chloride 100 mmol/L (101-111) L 11/30/17 06:18 Carbon Dioxide 32 mmol/L (22-32) 11/30/17 06:18 Anion Gap 6 mmol/L (2-11) 11/30/17 06:18 BUN 19 mg/dL (6-24) 11/30/17 06:18 Creatinine 1.32 mg/dL (0.67-1.17) H 11/30/17 06:18 Est GFR ( Amer) 68.2 (>60) 11/30/17 06:18 Est GFR (Non-Af Amer) 53.0 (>60) 11/30/17 06:18 BUN/Creatinine Ratio 14.4 (8-20) 11/30/17 06:18 Glucose 171 mg/dL (70-100) H 11/30/17 06:18 POC Glucose (mg/dL) 239 mg/dL (70-100) H 12/01/17 11:49 Calcium 9.1 mg/dL (8.6-10.3) 11/30/17 06:18 Total Bilirubin 0.40 mg/dL (0.2-1.0) 11/27/17 14:20 AST 16 U/L (13-39) 11/27/17 14:20 ALT 20 U/L (7-52) 11/27/17 14:20 Alkaline Phosphatase 92 U/L (34-104) 11/27/17 14:20 Total Creatine Kinase 18 U/L (10-223) 11/28/17 06:44 C-Reactive Protein 26.36 mg/L (< 5.00) H 11/30/17 06:18 Total Protein 7.2 g/dL (6.4-8.9) 11/27/17 14:20 Albumin 3.3 g/dL (3.2-5.2) 11/27/17 14:20 Globulin 3.9 g/dL (2-4) 11/27/17 14:20 Albumin/Globulin Ratio 0.8 (1-3) L 11/27/17 14:20 Ur Random Creatinine 40.01 mg/dL 11/29/17 20:24 Ur Random Sodium 146 mmol/L 11/29/17 20:24 Vancomycin Trough 26.6 mcg/mL 11/30/17 08:38 Assessment: []Osteomyelitis Left Great Toe Plan: []Reviewed findings of last ankle brachial index Discussed benefit vs risk of surgical vs nonsurgical options with patient Patient would like to discuss his options with Dr. Crocker specifically before he feels ready to make a final decision. If patient agrees to surgery: NPO, alert Dr. Heck, medically optimize, hold blood thinners
[2017-12-01] MEDS: Furosemide TAB* 40 MG PO SCH (18:20)
[2017-12-01] MEDS: Insulin GLARGINE(*) 1 UNITS UNIT SUBCUT SCH (20:30)
[2017-12-01] MEDS: oxyCODONE TAB* 5 MG TAB PO SCH (20:31)
--- NOTE | 2017-12-02 03:29 | CONS ---
INTERVENTIONAL CARDIOLOGY CONSULT NOTE: DATE OF CONSULT: 12/01/17 HISTORY OF PRESENT ILLNESS: A 72-year-old male, well known to me from previous evaluations for aortic stenosis as well as critical limb ischemia. He is admitted with left first toe cellulitis, has been found to have osteomyelitis by MR, my opinion was requested regarding the likelihood of wound healing with continued medical management. He has a long complex peripheral vascular and cardiac history. He had a non- healing wound, left second toe last fall, had occlusion of the plantar with an incomplete pedal loop. He had posterior tibial revascularization in [place] by Dr. Ruiz with establishment of straight line flow to the second toe. Toe - brachial index, 10/21/17, reported left at 0.53. Prior Doppler evaluation has shown the plantar circulation to be patent postangioplasty. Nonetheless, he developed osteomyelitis in the tip of his second toe in spite of straight line flow and subsequently he had it amputated in [facility]. Per the path report , he had normal bone margins. Toe-brachial index, by Dr. Márquez, left was 0.53. His left first toe wound has persisted in spite of treatment in wound clinic, in spite of direct line flow, and now on MR has findings consistent with osteomyelitis. PAST MEDICAL HISTORY: See extensive documentation in the the old record. FAMILY HISTORY: See extensive documentation in the the old record. SOCIAL HISTORY: See extensive documentation in the the old record. PHYSICAL EXAM: He looks well, he is afebrile, blood pressure 133/74. His left foot second toe amputation site is almost completely healed. The first toe has a large wound on the tip with back eschar, no drainage, no foul odor. There is no surrounding cellulitis. IMPRESSION AND PLAN: Critical limb ischemia, left first toe, Mata grade 3. What is concerning in his case is that in spite of straight line flow into his first and second toes after angioplasty via the revascularized plantar circulation, with an occluded dorsalis pedis, and post revascularization described intact pedal arch, he nonetheless failed to heal the second toe, and had amputation for osteomyelitis confirmed on pathology. He had clean bone margins. He now has non- healing of the first toe and has MR evidence of osteomyelitis. I think it is very unlikely that he will heal with conservative measures, we did review this, I recommended to him proceeding with amputation of the first toe that is involved by osteomyelitis. Hopefully, he can have resection guided by path evaluation of margins. Thanks for the consultation. [id number]/[facility] #: [id number] CODY
[2017-12-02] MEDS: Cefepime 2 GM in Dextrose(*) 2 GM/50 ML BAG IV SCH ×2 (06:04→17:59)
[2017-12-02 06:11] LABS: EGFR Non-African American 58.1 (>60)
[2017-12-02] MEDS: Moisturizing CREAM* 120 GM JAR TOPICAL SCH ×3 (06:12→22:07)
[2017-12-02] MEDS ORDERED: Vancomycin Trough Check NOTE FOLLOW UP ONE (07:30)
[2017-12-02] MEDS: Insulin LISPRO* 1 UNITS UNIT SUBCUT SCH ×3 (07:40→18:00)
[2017-12-02] MEDS: Ascorbic Acid TAB* 500 MG PO SCH ×2 (08:08→20:51)
[2017-12-02] MEDS: Ferrous Sulfate TAB* 325 MG PO SCH (08:08)
[2017-12-02] MEDS: Triamcinolone 0.5% OINT * 15 GM TUBE TOPICAL SCH ×4 (08:09→20:52)
[2017-12-02] MEDS: Losartan TAB* 25 MG PO SCH (08:09)
[2017-12-02] MEDS: Magnesium Oxide TAB* 400 MG PO SCH ×2 (08:09→20:51)
[2017-12-02] MEDS: Potassium Chlor TAB* 10 MEQ TAB.ER PO SCH (08:09)
[2017-12-02] MEDS: CMC:Pantoprazole TAB (NF) 40 MG TAB PO SCH (08:26)
[2017-12-02] MEDS: Metoprolol Tartrate TAB* 25 MG PO SCH ×2 (08:26→20:52)
--- NOTE | 2017-12-02 10:57 | PN ---
Progress Note - Progress Note Date of Service: 12/01/17 SOAP: Subjective: I was asked to speak with pt regarding dx of L great toe osteomyelitis. Pt is recommended for amputation. He has multiple questions. Pt known to me after multiple months of treatment. we had healed a RLE wound. Then pt had L 2nd toe DFU with osteomyelitis and arterial insufficiency. He recently underwent amputation as an out-pt in [place]. This has healed. Pt is inquiring if he needs a vascular surgeon to amputate. I explained to him that when I recommended 2nd toe amputation, he was told that general surgery, vascular surgery, or orthopedics could perform this. Additionally, we discussed that there are other options to amputation. I recommended ampuation of great toe because I would like to avoid a similar prolonged treatment course that ultimately ended with amputation. Objective: L foot; great toe eschar; healed 2nd toe amp MRi report reviewed Assessment: Great toe osteomyelitis acute on chronic with presentation of cellulitis Plan: Treatment per Orthopedics. I agree with amputation Overall 25 minutes spent with patient discussing options and plan of care
[2017-12-02] MEDS ORDERED: Famotidine IV* 10 MG/ML 2 ML (20 mg) IV ONE (11:43)
[2017-12-02] MEDS ORDERED: Buffered Lidocaine 0.9% SYRIN* 5 ML/SYR SYRINGE INTRADERM ONE (11:43)
[2017-12-02] MEDS: NS 0.9% 1000 ML* 1,000 ML IV SCH (11:59)
[2017-12-02] MEDS ORDERED: Bupivacaine 0.25% SDV* 30 ML ONE (13:08)
[2017-12-02] MEDS ORDERED: Famotidine IV* 10 MG/ML 2 ML (20 mg) ONE (13:30)
[2017-12-02] MEDS ORDERED: Midazolam* 1 MG/ML 10 ML VIAL (10 MG) ONE (13:31)
[2017-12-02] MEDS ORDERED: KETAMINE HCL* 50 MG/ML 10 ML VIAL ONE (13:31)
[2017-12-02] MEDS ORDERED: fentaNYL* 50 MCG/ML 2 ML VIAL (100 MCG VIAL) ONE (13:31)
[2017-12-02] MEDS ORDERED: Propofol* 10 MG/ML 20 ML BTL IV PUSH ONE (15:27)
[2017-12-02] MEDS ORDERED: Lidocaine 2% PF * 5 ML VIAL ONE (15:27)
[2017-12-02] MEDS ORDERED: Flumazenil* 0.1 MG/ML 5 ML MDV ONE (15:41)
[2017-12-02] MEDS ORDERED: Morphine INJ* 10 MG/ML 1 ML CARPUJECT IV PRN (15:56)
[2017-12-02] MEDS ORDERED: HYDROcodone/ACETAMIN 5-325 MG* 1 TAB PO PRN (15:56)
[2017-12-02] MEDS ORDERED: Naloxone* 0.4 MG/ML 1 ML VIAL IV PRN (15:56)
[2017-12-02] MEDS ORDERED: fentaNYL* 50 MCG/ML 2 ML VIAL (100 MCG VIAL) IV PRN (15:56)
[2017-12-02] MEDS ORDERED: Ondansetron INJ* 2 MG/ML VIAL IV PRN (15:56)
--- NOTE | 2017-12-02 17:27 | PN ---
Subjective Date of Service: 12/02/17 Interval History: Patient seen and examined at bedside. Denies fever, chills, shortness of breath , chest discomfort, N/V/D. Pt denies pain at this time. He is requesting food. Pt states that he was ambulating prior to his last amputation. Family History: Unchanged from Admission Social History: Unchanged from Admission Past Medical History: Unchanged from Admission Objective Active Medications: Hydrocodone Bitart/Acetaminophen ([place] 5-325 Tab*) 1 tab PO ONCE PRN Reason: PAIN - MODERATE Stop: 12/02/17 20:00 Ascorbic Acid (Vitamin C Tab*) 500 mg PO BID PIETER Dextrose (D50w Syringe 50 Ml*) 12.5 gm IV PUSH .FOR FS < 60 - SS PRN Reason: FS < 60 Docusate Sodium (Colace Cap*) 2 mg PO DAILY PRN Reason: CONSTIPATION Fentanyl Citrate (Fentanyl*) 25 mcg IV Q5M PRN Reason: PAIN - MODERATE Stop: 12/02/17 20:00 Ferrous Sulfate (Ferrous Sulfate Tab*) 325 mg PO DAILY PIETER Furosemide (Lasix Tab*) 40 mg PO SUTUTHSA PIETER Furosemide (Lasix Tab*) 80 mg PO MOWEFR PIETER Cefepime HCl (Maxipime 2 Gm In Dextrose Duplex (*)) 2 gm in 50 mls @ 100 mls/ hr IV Q12H PIETER Sodium Chloride (Ns 0.9% 1000 Ml*) 1,000 mls @ 125 mls/hr IV PER RATE [facility]ER Insulin Glargine (Lantus(*)) 15 units SUBCUT BEDTIME PIETER Insulin Human Lispro (Humalog*) 0 units SUBCUT AC PIETER Loperamide HCl (Imodium Cap*) 2 mg PO .SEE DIRECTIONS PRN Reason: DIARRHEA Losartan Potassium (Cozaar Tab*) 25 mg PO DAILY PIETER Magnesium Oxide (Magox 400 Tab*) 400 mg PO BID PIETER Metoprolol Tartrate (Lopressor Tab*) 25 mg PO BID PIETER Morphine Sulfate (Morphine Inj (Syringe)*) 2 mg IV Q5M PRN Reason: PAIN - SEVERE Stop: 12/02/17 20:00 Multi-Ingredient Ointment (Hydrocerin*) 1 applic TOPICAL BID PIETER Naloxone HCl (Narcan*) 0 mg IV Q2M PRN Reason: severe induced resp depression Ondansetron HCl (Zofran Inj*) 2 mg IV ONCE PRN Reason: NAUSEA/VOMITING Stop: 12/02/17 20:00 Oxycodone HCl (Roxycodone Tab*) 5 mg PO BEDTIME [facility] Oxycodone HCl (Roxycodone Tab*) 5 mg PO Q4HR PRN Reason: PAIN Pantoprazole Sodium (Protonix Tab (Nf)) 40 mg PO DAILY [facility] Potassium Chloride (Klor Con Er Tab*) 20 meq PO DAILY [facility] Senna (Senokot Tab*) 2 tab PO DAILY PRN Reason: CONSTIPATION Triamcinolone Acetonide (Triamcinolone 0.5% Oint *) 1 applic TOPICAL QID [facility] Vital Signs - 8 hr 12/02/17 12/02/17 12/02/17 11:55 15:46 15:50 Temperature 97.8 F 96.8 F Pulse Rate 69 80 78 Respiratory 18 12 12 Rate Blood Pressure 127/75 122/88 122/82 (mmHg) O2 Sat by Pulse 98 100 100 Oximetry 12/02/17 12/02/17 12/02/17 15:55 16:00 16:15 Temperature Pulse Rate 76 67 68 Respiratory 12 16 16 Rate Blood Pressure 126/80 130/73 120/76 (mmHg) O2 Sat by Pulse 100 100 99 Oximetry 12/02/17 16:30 Temperature 97.8 F Pulse Rate 67 Respiratory 12 Rate Blood Pressure 138/77 (mmHg) O2 Sat by Pulse 99 Oximetry Oxygen Devices in Use Now: None Appearance: NAD, laying in bed Ears/Nose/Mouth/Throat: Mucous Membranes Moist Respiratory: Symmetrical Chest Expansion and Respiratory Effort, Clear to Auscultation Cardiovascular: NL Sounds; No Murmurs; No JVD, RRR Abdominal: NL Sounds; No Tenderness; No Distention Extremities: No Edema Skin: - - Dressing to left 1st toe Neurological: Alert and Oriented x 3 Lines/Tubes/Other Access: Clean, Dry and Intact Peripheral IV - site benign Nutrition: Taking PO's Result Diagrams: 11/30/17 06:18 12/02/17 05:36 Additional Lab and Data: Laboratory Tests 11/27/17 11/27/17 11/28/17 14:20 18:25 08:14 Glucose 198 H POC Glucose (mg/dL) 141 H 137 H 11/28/17 11:22 Glucose POC Glucose (mg/dL) 194 H Microbiology and Other Data: Microbiology 12/02/17 15:50 Gram Stain - Preliminary Toe Assess/Plan/Problems-Billing Assessment: Mr. Cardoza is a 72 year old man with PMH significant for diabetes, PVD, admitted w / possible worsening of LT great toe gangrene, possible infection. - Patient Problems (1) Osteomyelitis Code(s): M86.9 - OSTEOMYELITIS, UNSPECIFIED SNOMED Code(s): 90898231 Comment: - Left 1st toe, S/P amputation - Suspect seconadary to DM and vascular disease - Ortho consult, input appreciated - ID consult, input appreciated - Continue cefepime (2) Dry gangrene Code(s): I96 - GANGRENE, NOT ELSEWHERE CLASSIFIED SNOMED Code(s): 081812805 Comment: - Left great toe, S/P amp - Dr. Kamara's consult appreciated, not clearly worsened - MRI - distal great toe and proximal phalanx of second toe ostromyelitis ( suspect 2nd toe is reactive from recent surgery) - Interventional cardiology, Dr. Tam consulted, input appreciated - Continue wound care and cefepime (3) Suicidal ideation Code(s): R45.851 - SUICIDAL IDEATIONS SNOMED Code(s): 8634401 Comment: - Psych consult, input appreciated - Pt doesn't want to try antidepressants (4) CKD (chronic kidney disease) Code(s): N18.9 - CHRONIC KIDNEY DISEASE, UNSPECIFIED SNOMED Code(s): 266974573 Comment: - Suspect Pt is at his baseline (5) Type 2 diabetes mellitus Comment: - Glucose 120-180's - Continue to hold glipizide - Continue lantus and lispro SS (6) HTN (hypertension) Code(s): I10 - ESSENTIAL (PRIMARY) HYPERTENSION SNOMED Code(s): 81214122 Comment: - Normotensive - Continue metoprolol and lasix (7) Atrial flutter Code(s): I48.92 - UNSPECIFIED ATRIAL FLUTTER SNOMED Code(s): 7946073 Comment: - Rate controlled - Continue metoprolol and resume xarelto in AM (8) History of DVT (deep vein thrombosis) Code(s): Z86.718 - PERSONAL HISTORY OF OTHER VENOUS THROMBOSIS AND EMBOLISM SNOMED Code(s): 534360414 Comment: - Resume xarelto in the AM (9) Severe aortic stenosis Code(s): I35.0 - NONRHEUMATIC AORTIC (VALVE) STENOSIS SNOMED Code(s): 59997821 Comment: - S/P TAVR (10) Systolic CHF Code(s): I50.20 - UNSPECIFIED SYSTOLIC (CONGESTIVE) HEART FAILURE SNOMED Code( s): 325439739 Comment: - Last EF 65% 10/2017 - Daily weights and strict I+O's - Continue Lasix (11) DVT prophylaxis Code(s): ZSM1755 - SNOMED Code(s): 133357133 Comment: - Resume xarelto in AM (12) Full code status Code(s): Z78.9 - OTHER SPECIFIED HEALTH STATUS SNOMED Code(s): 653583950 Status and Disposition: Inpatient. Suspect Pt will require intermediate teacher IV ABX, S/P toe amputation. Discharge back to [facility] when medically stable.
[2017-12-02] MEDS: Furosemide TAB* 40 MG PO SCH (18:04)
[2017-12-02] MEDS: Insulin GLARGINE(*) 1 UNITS UNIT SUBCUT SCH (20:51)
[2017-12-02] MEDS: oxyCODONE TAB* 5 MG TAB PO SCH (20:52)
[2017-12-02] MEDS: diPHENhydraMINE PO* 25 MG PO PRN (22:06)
--- NOTE | 2017-12-03 00:30 | OP ---
DATE OF OPERATION: 12/02/17 - ROOM #408 DATE OF : 41 SURGEON: Gurdeep Heck MD PROCESS DESCRIPTION WRITER: ROSALBA Vargas. Margaret's assistance was necessary for positioning, retraction, help with instrumentation and with closure. ANESTHESIOLOGIST: Dr. Crockett. ANESTHESIA: MAC with local anesthesia provided by the surgeon. PRE-OP DIAGNOSIS: Left hallux osteomyelitis and infection. POST-OP DIAGNOSIS: Left hallux osteomyelitis and infection. OPERATIVE PROCEDURE: Left hallux amputation at the level of the mid proximal phalanx. IMPLANTS: None. TOURNIQUET TIME: Less than 30 minutes with an ankle Esmarch tourniquet. SPECIMENS: Toe to pathology. ESTIMATED BLOOD LOSS: Minimal. COMPLICATIONS: None. DRAINS: None. STATUS: Stable from the operating room to the recovery room and then back to the medical floor. INDICATIONS FOR PROCEDURE: Carlos is a diabetic, who also has peripheral vascular disease and had a prior second toe amputation. He has been having issues with a left hallux ulcer for months and was admitted to the hospital for worsening of this. An MRI did reveal osteomyelitis of the distal phalanx. The hospitalist service, infectious disease service, vascular service, and orthopedic service were all consulted and discussed both nonoperative and operative treatment options at length with him. After all these discussions, he did decide that he would like to move forward with a hallux amputation. The nature and risks of the surgery were discussed with him in his hospital room as well as in the preoperative holding area. Our discussion regarding risks of surgery included, but were not limited to persistent infection, recurrence, need for further amputation or surgery, wound problems, nerve injury, neuroma, RSD and even the remote chance of a catastrophic complication including the loss of limb or . DESCRIPTION OF PROCEDURE: The patient was seen in the preoperative holding unit and an informed written consent was obtained. The appropriate extremity was marked. The patient was then brought to the operating room and carefully positioned on the operating room table. Anesthesia was induced. All bony prominences were padded with great care. A chlorhexidine based pre-scrub was performed followed by a standard prep and drape with ChloraPrep. Surgical safety pause was then conducted in which we confirmed the appropriate patient, extremity, planned procedure, availability of equipment, continuation of his antibiotics, and DVT prophylaxis in the form of compression boot on the nonsurgical extremity. We began with gravity exsanguination and placement of an ankle Esmarch tourniquet. I then made an incision over the dorsum of the hallux and took this distally to excise the ulcer. This was taken down to the level of the distal phalanx, which was then skeletonized and removed at the level of the interphalangeal joint. At this time, I dissected back along the proximal phalanx and removed the distal aspect of the proximal phalanx with an oscillating saw. At this time, the wound was copiously irrigated and any remaining nonviable tissue was excised. The tourniquet was removed and hemostasis was obtained. Skin edges were pink. Additionally, there was pus in the specimen and culture swabs were sent from this. The specimen was then sent to pathology. The wound was then closed in a layered fashion with 3-0 Monocryl and 3-0 nylon and a sterile dressing was placed. A fluoroscopy was utilized to confirm appropriate level of the amputation. The patient was then awakened from anesthesia and transferred to the recovery room in stable condition. There were no complications. All needle and sponge counts were correct at the end of the case. ATTESTATION: I attest that I was present, scrubbed and performed the entire procedure myself. POSTOPERATIVE PLAN: Carlos will remain heel weightbearing until the sutures are out, likely in 3 to 4 weeks. [id number]/[facility] #: [id number] CODY
[2017-12-03] MEDS: NS 0.9% 1000 ML* 1,000 ML IV SCH ×3 (01:28→21:44)
[2017-12-03] MEDS: Cefepime 2 GM in Dextrose(*) 2 GM/50 ML BAG IV SCH ×2 (05:18→17:59)
[2017-12-03] MEDS: Moisturizing CREAM* 120 GM JAR TOPICAL SCH ×2 (08:02→21:31)
--- NOTE | 2017-12-03 08:03 | RAD ---
CPT II Codes: 6045F INDICATION: Right great toe injury. Approximately 1.5 seconds of fluoroscopy time was used. Fluoroscopic services provided for referring physician. One spot image demonstrates amputation of the distal phalanx of the great toe as well as the second digit. IMPRESSION: Amputation of the great toe and second digit.
[2017-12-03] MEDS: Metoprolol Tartrate TAB* 25 MG PO SCH ×2 (09:37→21:30)
[2017-12-03] MEDS: CMC:Pantoprazole TAB (NF) 40 MG TAB PO SCH (09:37)
[2017-12-03] MEDS: Ferrous Sulfate TAB* 325 MG PO SCH (09:37)
[2017-12-03] MEDS: Losartan TAB* 25 MG PO SCH (09:37)
[2017-12-03] MEDS: Clopidogrel TAB* 75 MG PO SCH (09:37)
[2017-12-03] MEDS: Insulin LISPRO* 1 UNITS UNIT SUBCUT SCH ×3 (09:38→18:01)
[2017-12-03] MEDS: Magnesium Oxide TAB* 400 MG PO SCH ×2 (09:38→21:30)
[2017-12-03] MEDS: Rivaroxaban TAB(*) 20 MG TAB PO SCH (09:38)
[2017-12-03] MEDS: Potassium Chlor TAB* 10 MEQ TAB.ER PO SCH (09:38)
[2017-12-03] MEDS: Ascorbic Acid TAB* 500 MG PO SCH ×2 (09:38→21:30)
[2017-12-03] MEDS: Triamcinolone 0.5% OINT * 15 GM TUBE TOPICAL SCH ×4 (09:40→21:32)
--- NOTE | 2017-12-03 14:01 | PN ---
Progress Note - Progress Note Date of Service: 12/03/17 SOAP: Subjective: 72 y/o male s/p 1st L prox toe amp 12/[address] Heck. patient overall doing well, had questions about MRI, picture given to patient. no other questions/ conerns. VSS afebrile overnight. Objective: General= resting in bed comfortably, AO NAD MSK= surgical dressing in place, no drainage, odor noted, unable to see toes, hyperpigmentation b/l shins. Vital Signs Temp 97.7 F 12/03/17 11:11 Pulse 83 12/03/17 11:11 Resp 18 12/03/17 11:11 BP 121/67 12/03/17 11:11 Pulse Ox 99 12/03/17 11:11 Intake & Output 12/02/17 12/03/17 12/03/17 18:59 06:59 18:59 Intake Total 580 1543 Output Total 200 625 Balance 380 918 Weight 97.386 kg Intake: IV Fluids 350 1478 0.9% NS 350 NS (0.9%) 1478 IVPB 65 ABX - CEFEPIME 65 Oral 230 0 Output: Urine 200 625 Other: # Bowel Movements 0 1 Estimated Stool Amount Medium # Voids 1 Assessment: STable 72 y/o male s/p 1st L prox toe amp 12/[address] Heck. Plan: - IV ABX per ID - APpreciate hosp input - DVT per hosp - Heel weight bearing. Active Medications Generic Name Dose Route Start Last Admin Trade Name Freq PRN Reason Stop Dose Admin Ascorbic Acid 500 mg 11/27/17 21:00 12/03/17 09:38 Vitamin C Tab* PO 500 mg BID PIETER Administration Clopidogrel Bisulfate 75 mg 12/03/17 09:00 12/03/17 09:37 Plavix Tab* PO 75 mg DAILY PIETER Administration Dextrose 12.5 gm 11/27/17 15:34 D50w Syringe 50 Ml* IV PUSH .FOR FS < 60 - SS PRN FS < 60 Diphenhydramine HCl 25 mg 12/02/17 21:11 12/02/17 22:06 Benadryl Po* PO 25 mg BID PRN Administration ITCHING Docusate Sodium 2 mg 11/27/17 15:32 Colace Cap* PO DAILY PRN CONSTIPATION Ferrous Sulfate 325 mg 11/28/17 09:00 02/02/18 09:37 Ferrous Sulfate Tab* PO 325 mg DAILY PIETER Administration Furosemide 80 mg 11/29/17 17:19 12/01/17 18:20 Lasix Tab* PO 80 mg MOWEFR PIETER Administration Furosemide 40 mg 12/02/17 18:00 12/02/17 18:04 Lasix Tab* PO 40 mg SUTUTHSA PIETER Administration Cefepime HCl 2 gm in 50 mls @ 100 mls/hr 11/29/17 18:00 12/03/17 05:18 Maxipime 2 Gm In Dextrose Duplex (*) IV 100 mls/hr Q12H [facility]ETER Administration Sodium Chloride 1,000 mls @ 125 mls/hr 12/02/17 11:45 12/03/17 12:06 Ns 0.9% 1000 Ml* IV 125 mls/hr PER RATE PIETER Administration Insulin Glargine 15 units 11/27/17 21:00 12/02/17 20:51 Lantus(*) SUBCUT 15 units BEDTIME PIETER Administration Insulin Human Lispro 0 units 11/27/17 16:30 12/03/17 12:29 Humalog* SUBCUT 6 unit AC PIETER Administration Protocol Loperamide HCl 2 mg 11/29/17 18:42 11/29/17 21:00 Imodium Cap* PO 2 mg .SEE DIRECTIONS PRN Administration DIARRHEA Losartan Potassium 25 mg 11/28/17 09:00 12/03/17 09:37 Cozaar Tab* PO 25 mg DAILY PIETER Administration Magnesium Oxide 400 mg 11/27/17 21:00 12/03/17 09:38 Magox 400 Tab* PO 400 mg BID PIETER Administration Metoprolol Tartrate 25 mg 11/27/17 21:00 12/03/17 09:37 Lopressor Tab* PO 25 mg BID PIETER Administration Multi-Ingredient Ointment 1 applic 12/02/17 02:00 12/03/17 08:02 Hydrocerin* TOPICAL 1 applic BID PIETER Administration Naloxone HCl 0 mg 12/02/17 15:56 Narcan* IV 12/03/17 20:00 Q2M PRN severe induced resp depression Oxycodone HCl 5 mg 11/27/17 21:00 12/02/17 20:52 Roxycodone Tab* PO 5 mg BEDTIME PIETER Administration Oxycodone HCl 5 mg 11/27/17 15:32 11/29/17 02:20 Roxycodone Tab* PO 5 mg Q4HR PRN Administration PAIN Pantoprazole Sodium 40 mg 11/28/17 09:00 12/03/17 09:37 Protonix Tab (Nf) PO 40 mg DAILY PIETER Administration Potassium Chloride 20 meq 11/28/17 09:00 12/03/17 09:38 Klor Con Er Tab* PO 20 meq DAILY [facility]ETER Administration Rivaroxaban 20 mg 12/03/17 09:00 12/03/17 09:38 Xarelto(*) PO 20 mg DAILY PIETER Administration Senna 2 tab 11/27/17 15:32 Senokot Tab* PO DAILY PRN CONSTIPATION Triamcinolone Acetonide 1 applic 11/27/17 17:00 12/03/17 12:10 Triamcinolone 0.5% Oint * TOPICAL 1 applic QID PIETER Administration
--- NOTE | 2017-12-03 16:52 | PN ---
Subjective Date of Service: 12/03/17 Interval History: Mr. Cardoza is found sitting up in bed A+O x3 in NAD. He reports his only complaint is that his ortho boot feels clumsy, however he reports its only the 2nd time he has used the boot. He offers no complaints. He denies pain. No fever or chills. Reports good appetite. Reports intermittent diarrhea and thinks it 2nd to the antibiotics, reporting more soft stool than watery or explosive. No abdominal pain. Family History: Unchanged from Admission Social History: Unchanged from Admission Past Medical History: Unchanged from Admission Objective Active Medications: Ascorbic Acid (Vitamin C Tab*) 500 mg PO BID [facility] Last Admin: 12/03/17 09:38 Dose: 500 mg Clopidogrel Bisulfate (Plavix Tab*) 75 mg PO DAILY [facility] Last Admin: 12/03/17 09:37 Dose: 75 mg Dextrose (D50w Syringe 50 Ml*) 12.5 gm IV PUSH .FOR FS < 60 - SS PRN PRN Reason: FS < 60 Diphenhydramine HCl (Benadryl Po*) 25 mg PO BID PRN PRN Reason: ITCHING Last Admin: 12/02/17 22:06 Dose: 25 mg Docusate Sodium (Colace Cap*) 2 mg PO DAILY PRN PRN Reason: CONSTIPATION Ferrous Sulfate (Ferrous Sulfate Tab*) 325 mg PO DAILY [facility] Last Admin: 12/03/17 09:37 Dose: 325 mg Furosemide (Lasix Tab*) 80 mg PO MOWEFR [facility] Last Admin: 12/01/17 18:20 Dose: 80 mg Furosemide (Lasix Tab*) 40 mg PO SUTUTHSA [facility] Last Admin: 12/02/17 18:04 Dose: 40 mg Cefepime HCl (Maxipime 2 Gm In Dextrose Duplex (*)) 2 gm in 50 mls @ 100 mls/ hr IV Q12H [facility] Last Admin: 12/03/17 05:18 Dose: 100 mls/hr Sodium Chloride (Ns 0.9% 1000 Ml*) 1,000 mls @ 125 mls/hr IV PER RATE [facility] Last Admin: 12/03/17 12:06 Dose: 125 mls/hr Insulin Glargine (Lantus(*)) 15 units SUBCUT BEDTIME [facility] Last Admin: 12/02/17 20:51 Dose: 15 units Insulin Human Lispro (Humalog*) 0 units SUBCUT AC [facility] PRN Reason: Protocol Last Admin: 12/03/17 12:29 Dose: 6 unit Loperamide HCl (Imodium Cap*) 2 mg PO .SEE DIRECTIONS PRN PRN Reason: DIARRHEA Last Admin: 11/29/17 21:00 Dose: 2 mg Losartan Potassium (Cozaar Tab*) 25 mg PO DAILY [facility] Last Admin: 12/03/17 09:37 Dose: 25 mg Magnesium Oxide (Magox 400 Tab*) 400 mg PO BID [facility] Last Admin: 12/03/17 09:38 Dose: 400 mg Metoprolol Tartrate (Lopressor Tab*) 25 mg PO BID [facility] Last Admin: 12/03/17 09:37 Dose: 25 mg Multi-Ingredient Ointment (Hydrocerin*) 1 applic TOPICAL BID [facility] Last Admin: 12/03/17 08:02 Dose: 1 applic Naloxone HCl (Narcan*) 0 mg IV Q2M PRN PRN Reason: severe induced resp depression Stop: 12/03/17 20:00 Oxycodone HCl (Roxycodone Tab*) 5 mg PO BEDTIME [facility] Last Admin: 12/02/17 20:52 Dose: 5 mg Oxycodone HCl (Roxycodone Tab*) 5 mg PO Q4HR PRN PRN Reason: PAIN Last Admin: 11/29/17 02:20 Dose: 5 mg Pantoprazole Sodium (Protonix Tab (Nf)) 40 mg PO DAILY [facility] Last Admin: 12/03/17 09:37 Dose: 40 mg Potassium Chloride (Klor Con Er Tab*) 20 meq PO DAILY [facility] Last Admin: 12/03/17 09:38 Dose: 20 meq Rivaroxaban (Xarelto(*)) 20 mg PO DAILY [facility] Last Admin: 12/03/17 09:38 Dose: 20 mg Senna (Senokot Tab*) 2 tab PO DAILY PRN PRN Reason: CONSTIPATION Triamcinolone Acetonide (Triamcinolone 0.5% Oint *) 1 applic TOPICAL QID [facility] Last Admin: 12/03/17 12:10 Dose: 1 applic Vital Signs - 8 hr 12/03/17 11:11 Temperature 97.7 F Pulse Rate 83 Respiratory 18 Rate Blood Pressure 121/67 (mmHg) O2 Sat by Pulse 99 Oximetry Oxygen Devices in Use Now: None Appearance: elderly male sitting up in bed A+Ox3 Eyes: No Scleral Icterus, PERRLA Ears/Nose/Mouth/Throat: NL Teeth, Lips, Gums, Mucous Membranes Moist, - - no thrush Respiratory: Symmetrical Chest Expansion and Respiratory Effort, Clear to Auscultation Cardiovascular: NL Sounds; No Murmurs; No JVD, RRR, - - trace edema b/l LE Abdominal: NL Sounds; No Tenderness; No Distention, - - obese Extremities: - - CD+I dressing to left foot Skin: - - vascular changes to LE b/l Neurological: Alert and Oriented x 3 Lines/Tubes/Other Access: Clean, Dry and Intact Peripheral IV Nutrition: Taking PO's Result Diagrams: 11/30/17 06:18 12/02/17 05:36 Additional Lab and Data: Laboratory Tests 11/27/17 11/27/17 11/28/17 14:20 18:25 08:14 Glucose 198 H POC Glucose (mg/dL) 141 H 137 H 11/28/17 11:22 Glucose POC Glucose (mg/dL) 194 H Microbiology and Other Data: Microbiology 12/02/17 15:50 Gram Stain - Preliminary Toe Assess/Plan/Problems-Billing Assessment: Mr. Cardoza is a 72 year old man with PMH significant for diabetes, PVD, admitted w / possible worsening of LT great toe gangrene - Patient Problems (1) Dry gangrene Comment: - Left great toe, S/P amp [address]. Ortho following - Dr. Kamara's consult appreciated, not clearly worsened - MRI - distal great toe and proximal phalanx of second toe ostromyelitis ( suspect 2nd toe is reactive from recent surgery) - Interventional cardiology, Dr. Tam consulted, input appreciated - Continue wound care and cefepime (2) Osteomyelitis Comment: - Left 1st toe, S/P amputation - Suspect seconadary to DM and vascular disease - ID consult, input appreciated - Continue cefepime (3) Suicidal ideation Comment: - pt's mood is improving - Psych consult, input appreciated - Pt doesn't want to try antidepressants (4) Atrial flutter Comment: - Rate controlled - Continue metoprolol and xarelto (5) CKD (chronic kidney disease) Comment: - Suspect Pt is at his baseline (6) HTN (hypertension) Comment: - Normotensive - Continue metoprolol and lasix (7) History of DVT (deep vein thrombosis) Comment: - Resume xarelto in the AM (8) Severe aortic stenosis Comment: - S/P TAVR (9) Systolic CHF Comment: - Last EF 65% 10/2017 - Daily weights and strict I+O's - Continue Lasix (10) Type 2 diabetes mellitus Comment: - Glucose 120-180's - Continue to hold glipizide - Continue lantus and lispro SS (11) DVT prophylaxis Comment: -on Xarelto (12) DVT prophylaxis Comment: - xarelto resumed today Status and Disposition: Inpatient. Suspect Pt will require [facility] IV ABX, S/P toe amputation. Discharge back to subacute rehab when stable. Waiting for bed offer
[2017-12-03] MEDS: Furosemide TAB* 40 MG PO SCH (16:59)
[2017-12-03] MEDS: oxyCODONE TAB* 5 MG TAB PO SCH (21:30)
[2017-12-03] MEDS: Lactobacillus Acidophilu (GG)* 1 CAP CAP PO SCH (21:30)
[2017-12-03] MEDS: Insulin GLARGINE(*) 1 UNITS UNIT SUBCUT SCH (21:31)
[2017-12-03] MEDS: diPHENhydraMINE PO* 25 MG PO PRN (21:32)
[2017-12-04] MEDS: Cefepime 2 GM in Dextrose(*) 2 GM/50 ML BAG IV SCH ×2 (05:36→17:45)
[2017-12-04] MEDS: NS 0.9% 1000 ML* 1,000 ML IV SCH ×2 (05:36→17:05)
[2017-12-04 08:33] LABS: ABS Basophils 0.1 10^3/ul (0-0.2); ABS Eosinophils 0.4 10^3/ul (0-0.6); ABS Lymphocytes 1.9 10^3/ul (1.0-4.8); ABS Monocytes 0.7 10^3/ul (0-0.8); ABS Nucleated RBC 0 10^3/ul; Eosinophil % 3.7 % (0-6); Hematocrit 39 % (42-52); Hemoglobin 12.3 g/dl (14.0-18.0); Lymphocyte % 18.6 % (25-47); Mean Corpuscular HGB Conc 32 g/dl (31-36); Mean Corpuscular Hemoglobin 33 pg (27-31); Mean Corpuscular Volume 103 fL (80-94); Mean Platelet Volume 8 um3 (7.4-10.4); Nucleated Red Blood Cells % 0.1; Platelet Count 302 10^3/ul (150-450); Red Blood Count 3.75 10^6/ul (4.0-5.4); Red Cell Distribution Width 15 % (10.5-15)
[2017-12-04 08:43] LABS: EGFR Non-African American 58.1 (>60)
[2017-12-04] MEDS: Clopidogrel TAB* 75 MG PO SCH (09:16)
[2017-12-04] MEDS: Losartan TAB* 25 MG PO SCH (09:16)
[2017-12-04] MEDS: Magnesium Oxide TAB* 400 MG PO SCH ×2 (09:16→21:17)
[2017-12-04] MEDS: Potassium Chlor TAB* 10 MEQ TAB.ER PO SCH (09:16)
[2017-12-04] MEDS: Lactobacillus Acidophilu (GG)* 1 CAP CAP PO SCH ×2 (09:16→21:17)
[2017-12-04] MEDS: CMC:Pantoprazole TAB (NF) 40 MG TAB PO SCH (09:16)
[2017-12-04] MEDS: Ferrous Sulfate TAB* 325 MG PO SCH (09:16)
[2017-12-04] MEDS: Rivaroxaban TAB(*) 20 MG TAB PO SCH (09:17)
[2017-12-04] MEDS: diPHENhydraMINE PO* 25 MG PO PRN ×2 (09:17→21:34)
[2017-12-04] MEDS: Ascorbic Acid TAB* 500 MG PO SCH ×2 (09:18→21:17)
[2017-12-04] MEDS: Insulin LISPRO* 1 UNITS UNIT SUBCUT SCH ×3 (09:18→17:44)
[2017-12-04] MEDS: Metoprolol Tartrate TAB* 25 MG PO SCH ×2 (09:18→21:17)
[2017-12-04] MEDS: Moisturizing CREAM* 120 GM JAR TOPICAL SCH ×2 (09:22→21:31)
[2017-12-04] MEDS: Triamcinolone 0.5% OINT * 15 GM TUBE TOPICAL SCH ×4 (09:22→21:30)
--- NOTE | 2017-12-04 10:54 | PN ---
Progress Note - Progress Note Date of Service: 12/04/17 SOAP: Subjective: Pt states he is doing well. Has minimal pain. Has been compliant with heel WB and doing well with PT. Denies Calf pain CP/SOB or F/C Objective: PE: 72 y/O M NAD, lying comfortably in bed LLE: dressing c/d/i, +DF/PF ankle, calf soft NT, + 2 PT pulse, decreased sensation distally Vital Signs Temp Pulse Resp BP Pulse Ox 97.3 F 74 16 139/74 98 12/04/17 07:43 12/04/17 07:43 12/04/17 09:17 12/04/17 07:43 12/04/17 08:08 Laboratory Results - last 24 hr 12/03/17 12/03/17 12/04/17 11:48 16:58 07:26 WBC RBC Hgb Hct MCV MCH MCHC RDW Plt Count MPV Neut % (Auto) Lymph % (Auto) Tate % (Auto) Eos % (Auto) Baso % (Auto) Absolute Neuts (auto) Absolute Lymphs (auto) Absolute Monos (auto) Absolute Eos (auto) Absolute Basos (auto) Absolute Nucleated RBC Nucleated RBC % Sodium Potassium Chloride Carbon Dioxide Anion Gap BUN Creatinine Est GFR ( Amer) Est GFR (Non-Af Amer) BUN/Creatinine Ratio Glucose POC Glucose (mg/dL) 287 H 180 H 161 H Calcium Magnesium 12/04/17 12/04/17 07:58 07:58 WBC 10.0 RBC 3.75 L Hgb 12.3 L Hct 39 L MCV 103 H MCH 33 H MCHC 32 RDW 15 Plt Count 302 MPV 8 Neut % (Auto) 70.0 Lymph % (Auto) 18.6 L Tate % (Auto) 6.9 Eos % (Auto) 3.7 Baso % (Auto) 0.8 Absolute Neuts (auto) 7.0 Absolute Lymphs (auto) 1.9 Absolute Monos (auto) 0.7 Absolute Eos (auto) 0.4 Absolute Basos (auto) 0.1 Absolute Nucleated RBC 0 Nucleated RBC % 0.1 Sodium 137 Potassium 3.9 Chloride 105 Carbon Dioxide 27 Anion Gap 5 BUN 19 Creatinine 1.22 H Est GFR ( Amer) 74.7 Est GFR (Non-Af Amer) 58.1 BUN/Creatinine Ratio 15.6 Glucose 147 H POC Glucose (mg/dL) Calcium 8.8 Magnesium 1.9 Assessment: s/p 1st L prox toe amp 12/[address] Heck. POD 2 Plan: - Cont ABX per ID - Appreciate hosp input for medical mgmt - DVT per hosp - Cont PT- Heel weight bearing. -dressing change by provider tomorrow
--- NOTE | 2017-12-04 16:09 | PN ---
Subjective Date of Service: 12/04/17 Interval History: One loose stool daily. Appetite OK. Little pain. Patient upset about his poorly fitting orthotic boot. Family History: Unchanged from Admission Social History: Unchanged from Admission Past Medical History: Unchanged from Admission Objective Active Medications: Ascorbic Acid (Vitamin C Tab*) 500 mg PO BID [facility] Last Admin: 12/04/17 09:18 Dose: 500 mg Clopidogrel Bisulfate (Plavix Tab*) 75 mg PO DAILY [facility] Last Admin: 12/04/17 09:16 Dose: 75 mg Dextrose (D50w Syringe 50 Ml*) 12.5 gm IV PUSH .FOR FS < 60 - SS PRN PRN Reason: FS < 60 Diphenhydramine HCl (Benadryl Po*) 25 mg PO BID PRN PRN Reason: ITCHING Last Admin: 12/04/17 09:17 Dose: 25 mg Docusate Sodium (Colace Cap*) 2 mg PO DAILY PRN PRN Reason: CONSTIPATION Ferrous Sulfate (Ferrous Sulfate Tab*) 325 mg PO DAILY [facility] Last Admin: 12/04/17 09:16 Dose: 325 mg Furosemide (Lasix Tab*) 80 mg PO MOWEFR [facility] Last Admin: 12/03/17 16:59 Dose: 80 mg Furosemide (Lasix Tab*) 40 mg PO SUTUTHSA [facility] Last Admin: 12/02/17 18:04 Dose: 40 mg Cefepime HCl (Maxipime 2 Gm In Dextrose Duplex (*)) 2 gm in 50 mls @ 100 mls/ hr IV Q12H [facility] Last Admin: 12/04/17 05:36 Dose: 100 mls/hr Sodium Chloride (Ns 0.9% 1000 Ml*) 1,000 mls @ 125 mls/hr IV PER RATE [facility] Last Admin: 12/04/17 05:36 Dose: 125 mls/hr Insulin Glargine (Lantus(*)) 15 units SUBCUT BEDTIME [facility] Last Admin: 12/03/17 21:31 Dose: 15 units Insulin Human Lispro (Humalog*) 0 units SUBCUT AC [facility] PRN Reason: Protocol Last Admin: 12/04/17 12:26 Dose: 4 unit Lactobacillus Rhamnosus (Culturelle*) 1 cap PO BID [facility] Last Admin: 12/04/17 09:16 Dose: 1 cap Loperamide HCl (Imodium Cap*) 2 mg PO .SEE DIRECTIONS PRN PRN Reason: DIARRHEA Last Admin: 11/29/17 21:00 Dose: 2 mg Losartan Potassium (Cozaar Tab*) 25 mg PO DAILY [facility] Last Admin: 12/04/17 09:16 Dose: 25 mg Magnesium Oxide (Magox 400 Tab*) 400 mg PO BID [facility] Last Admin: 12/04/17 09:16 Dose: 400 mg Metoprolol Tartrate (Lopressor Tab*) 25 mg PO BID [facility] Last Admin: 12/04/17 09:18 Dose: 25 mg Multi-Ingredient Ointment (Hydrocerin*) 1 applic TOPICAL BID [facility] Last Admin: 12/04/17 09:22 Dose: 1 applic Oxycodone HCl (Roxycodone Tab*) 5 mg PO BEDTIME [facility] Last Admin: 12/03/17 21:30 Dose: 5 mg Pantoprazole Sodium (Protonix Tab (Nf)) 40 mg PO DAILY [facility] Last Admin: 12/04/17 09:16 Dose: 40 mg Potassium Chloride (Klor Con Er Tab*) 20 meq PO DAILY [facility] Last Admin: 12/04/17 09:16 Dose: 20 meq Rivaroxaban (Xarelto(*)) 20 mg PO DAILY [facility] Last Admin: 12/04/17 09:17 Dose: 20 mg Senna (Senokot Tab*) 2 tab PO DAILY PRN PRN Reason: CONSTIPATION Triamcinolone Acetonide (Triamcinolone 0.5% Oint *) 1 applic TOPICAL QID [facility] Last Admin: 12/04/17 12:28 Dose: Not Given Vital Signs - 8 hr 12/04/17 12/04/17 12/04/17 08:08 09:17 12:06 Temperature 97.9 F Pulse Rate 65 Respiratory 18 16 16 Rate Blood Pressure 140/77 (mmHg) O2 Sat by Pulse 98 99 Oximetry 12/04/17 12/04/17 12:25 15:11 Temperature 98.0 F Pulse Rate 78 Respiratory 20 18 Rate Blood Pressure 123/65 (mmHg) O2 Sat by Pulse 99 Oximetry Oxygen Devices in Use Now: None Appearance: Alert, partly up in bed. In fair spirits. Looks comfortable. Eyes: No Scleral Icterus Extremities: No Edema, No Clubbing, Cyanosis, - - L foot bandaged with elastic wrap Skin: No Rash or Ulcers, No Nodules or Sclerosis Neurological: Alert and Oriented x 3, NL Sensation Result Diagrams: 12/04/17 07:58 12/04/17 07:58 Additional Lab and Data: Laboratory Tests 11/27/17 11/27/17 11/28/17 14:20 18:25 08:14 Glucose 198 H POC Glucose (mg/dL) 141 H 137 H 11/28/17 11:22 Glucose POC Glucose (mg/dL) 194 H Microbiology and Other Data: Microbiology 12/02/17 15:50 Gram Stain - Preliminary Toe Assess/Plan/Problems-Billing Assessment: Mr. Cardoza is a 72 year old man with PMH significant for diabetes, PVD, admitted w / possible worsening of LT great toe gangrene - Patient Problems (1) Osteomyelitis Current Visit: Yes Status: Acute Code(s): M86.9 - OSTEOMYELITIS, UNSPECIFIED SNOMED Code(s): 27634865 Comment: - S/P Left 1st toe amputation - Continue cefepime. I will discuss with Dr. Julien 12/06/17. (2) CKD (chronic kidney disease) Current Visit: Yes Status: Chronic Code(s): N18.9 - CHRONIC KIDNEY DISEASE, UNSPECIFIED SNOMED Code(s): 489857533 Comment: Stable. (3) Type 2 diabetes mellitus Current Visit: Yes Status: Chronic Priority: Medium Comment: - Continue lantus and lispro SS. (4) Systolic CHF Current Visit: No Status: Chronic Code(s): I50.20 - UNSPECIFIED SYSTOLIC ( CONGESTIVE) HEART FAILURE SNOMED Code(s): 015116276 Comment: - Last EF 65% 10/2017 - Daily weights and strict I+O's - Continue Lasix (5) Severe aortic stenosis Current Visit: No Status: Chronic Code(s): I35.0 - NONRHEUMATIC AORTIC ( VALVE) STENOSIS SNOMED Code(s): 41917838 Comment: - S/P TAVR Status and Disposition: Inpatient. 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 Discharge back to subacute rehab when stable. Waiting for bed offer
[2017-12-04] MEDS: Furosemide TAB* 40 MG PO SCH (19:08)
[2017-12-04] MEDS: oxyCODONE TAB* 5 MG TAB PO SCH (21:17)
[2017-12-04] MEDS: Insulin GLARGINE(*) 1 UNITS UNIT SUBCUT SCH (21:24)
[2017-12-05] MEDS ORDERED: oxyCODONE TAB* 5 MG TAB PO PRN (01:00)
[2017-12-05] MEDS: Cefepime 2 GM in Dextrose(*) 2 GM/50 ML BAG IV SCH ×2 (05:55→17:34)
[2017-12-05] MEDS ORDERED: Insulin GLARGINE(*) 1 UNITS UNIT SUBCUT SCH (07:34)
[2017-12-05] MEDS ORDERED: Docusate CAP* 100 MG PO PRN (07:36)
--- NOTE | 2017-12-05 07:44 | PN ---
Subjective Date of Service: 12/05/17 Interval History: No pain. Still one loose stool per day. Appetite good. No new c/o. Family History: Unchanged from Admission Social History: Unchanged from Admission Past Medical History: Unchanged from Admission Objective Active Medications: Ascorbic Acid (Vitamin C Tab*) 500 mg PO BID [facility] Last Admin: 12/04/17 21:17 Dose: 500 mg Clopidogrel Bisulfate (Plavix Tab*) 75 mg PO DAILY [facility] Last Admin: 12/04/17 09:16 Dose: 75 mg Dextrose (D50w Syringe 50 Ml*) 12.5 gm IV PUSH .FOR FS < 60 - SS PRN PRN Reason: FS < 60 Diphenhydramine HCl (Benadryl Po*) 25 mg PO BID PRN PRN Reason: ITCHING Last Admin: 12/04/17 21:34 Dose: 25 mg Docusate Sodium (Colace Cap*) 200 mg PO DAILY PRN PRN Reason: CONSTIPATION Ferrous Sulfate (Ferrous Sulfate Tab*) 325 mg PO DAILY [facility] Last Admin: 12/04/17 09:16 Dose: 325 mg Furosemide (Lasix Tab*) 40 mg PO DAILY [facility] Cefepime HCl (Maxipime 2 Gm In Dextrose Duplex (*)) 2 gm in 50 mls @ 100 mls/ hr IV Q12H [facility] Last Admin: 12/05/17 05:55 Dose: 100 mls/hr Insulin Glargine (Lantus(*)) 20 units SUBCUT BEDTIME [facility] Insulin Human Lispro (Humalog*) 0 units SUBCUT AC [facility] PRN Reason: Protocol Last Admin: 12/04/17 17:44 Dose: 2 unit Lactobacillus Rhamnosus (Culturelle*) 1 cap PO BID [facility] Last Admin: 12/04/17 21:17 Dose: 1 cap Loperamide HCl (Imodium Cap*) 2 mg PO .SEE DIRECTIONS PRN PRN Reason: DIARRHEA Last Admin: 11/29/17 21:00 Dose: 2 mg Losartan Potassium (Cozaar Tab*) 25 mg PO DAILY [facility] Last Admin: 12/04/17 09:16 Dose: 25 mg Magnesium Oxide (Magox 400 Tab*) 400 mg PO BID [facility] Last Admin: 12/04/17 21:17 Dose: 400 mg Metoprolol Tartrate (Lopressor Tab*) 25 mg PO BID [facility] Last Admin: 12/04/17 21:17 Dose: 25 mg Multi-Ingredient Ointment (Hydrocerin*) 1 applic TOPICAL BID [facility] Last Admin: 12/04/17 21:31 Dose: Not Given Oxycodone HCl (Roxycodone Tab*) 5 mg PO BEDTIME [facility] Last Admin: 12/04/17 21:17 Dose: 5 mg Oxycodone HCl (Roxycodone Tab*) 5 mg PO Q4H PRN PRN Reason: PAIN Pantoprazole Sodium (Protonix Tab (Nf)) 40 mg PO DAILY [facility] Last Admin: 12/04/17 09:16 Dose: 40 mg Potassium Chloride (Klor Con Er Tab*) 20 meq PO DAILY [facility] Last Admin: 12/04/17 09:16 Dose: 20 meq Rivaroxaban (Xarelto(*)) 20 mg PO DAILY [facility] Last Admin: 12/04/17 09:17 Dose: 20 mg Senna (Senokot Tab*) 2 tab PO DAILY PRN PRN Reason: CONSTIPATION Triamcinolone Acetonide (Triamcinolone 0.5% Oint *) 1 applic TOPICAL QID [facility] Last Admin: 12/04/17 21:30 Dose: 1 applic Vital Signs - 8 hr 12/05/17 12/05/17 00:55 02:59 Temperature 97.6 F Pulse Rate 62 Respiratory 16 16 Rate Blood Pressure 125/65 (mmHg) O2 Sat by Pulse 100 Oximetry Oxygen Devices in Use Now: None Appearance: Alert, partly up in bed. In fair spirits. Looks comfortable. Eyes: No Scleral Icterus Neck: NL Appearance and Movements; NL JVP, No Thyroid Enlargement, Masses Respiratory: Symmetrical Chest Expansion and Respiratory Effort, Clear to Auscultation, Clear to Percussion Extremities: No Edema, No Clubbing, Cyanosis Skin: No Nodules or Sclerosis, - - L foot bandaged. Neurological: Alert and Oriented x 3, NL Sensation Result Diagrams: 12/04/17 07:58 12/04/17 07:58 Additional Lab and Data: Laboratory Tests 11/27/17 11/27/17 11/28/17 14:20 18:25 08:14 Glucose 198 H POC Glucose (mg/dL) 141 H 137 H 11/28/17 11:22 Glucose POC Glucose (mg/dL) 194 H Microbiology and Other Data: Microbiology 12/02/17 15:50 Gram Stain - Preliminary Toe Assess/Plan/Problems-Billing Assessment: Mr. Cardoza is a 72 year old man with PMH significant for diabetes, PVD, admitted w / possible worsening of LT great toe gangrene - Patient Problems (1) Osteomyelitis Current Visit: Yes Status: Acute Code(s): M86.9 - OSTEOMYELITIS, UNSPECIFIED SNOMED Code(s): 12098606 Comment: - S/P Left 1st toe amputation . CRP 12/06. - Continue cefepime. I will discuss with Dr. Julien 12/06/17. (2) CKD (chronic kidney disease) Current Visit: Yes Status: Chronic Code(s): N18.9 - CHRONIC KIDNEY DISEASE, UNSPECIFIED SNOMED Code(s): 041005900 Comment: Stable. (3) Type 2 diabetes mellitus Current Visit: Yes Status: Chronic Priority: Medium Comment: - Increase lantus to 20 start 12/05 9 PM, continue lispro SS. (4) Systolic CHF Current Visit: No Status: Chronic Code(s): I50.20 - UNSPECIFIED SYSTOLIC ( CONGESTIVE) HEART FAILURE SNOMED Code(s): 805586503 Comment: - Last EF 65% 10/2017 - Daily weights and strict I+O's - Reduce Lasix to 40 mg daily, stop IV fluids. (5) Severe aortic stenosis Current Visit: No Status: Chronic Code(s): I35.0 - NONRHEUMATIC AORTIC ( VALVE) STENOSIS SNOMED Code(s): 35712960 Comment: - S/P TAVR Status and Disposition: Inpatient. Suspect Pt will require snf IV ABX, S/P toe amputation. Discharge back to subacute rehab when stable. Waiting for bed offer
[2017-12-05] MEDS: Rivaroxaban TAB(*) 20 MG TAB PO SCH (09:25)
[2017-12-05] MEDS: Ascorbic Acid TAB* 500 MG PO SCH ×2 (09:25→20:59)
[2017-12-05] MEDS: CMC:Pantoprazole TAB (NF) 40 MG TAB PO SCH (09:25)
[2017-12-05] MEDS: Losartan TAB* 25 MG PO SCH (09:25)
[2017-12-05] MEDS: Metoprolol Tartrate TAB* 25 MG PO SCH ×2 (09:25→21:00)
[2017-12-05] MEDS: Lactobacillus Acidophilu (GG)* 1 CAP CAP PO SCH ×2 (09:25→21:00)
[2017-12-05] MEDS: Potassium Chlor TAB* 10 MEQ TAB.ER PO SCH (09:25)
[2017-12-05] MEDS: Ferrous Sulfate TAB* 325 MG PO SCH (09:25)
[2017-12-05] MEDS: Magnesium Oxide TAB* 400 MG PO SCH ×2 (09:26→20:59)
[2017-12-05] MEDS: Furosemide TAB* 40 MG PO SCH (09:26)
[2017-12-05] MEDS: Insulin LISPRO* 1 UNITS UNIT SUBCUT SCH ×3 (09:26→17:34)
[2017-12-05] MEDS: Clopidogrel TAB* 75 MG PO SCH (09:26)
[2017-12-05] MEDS: Triamcinolone 0.5% OINT * 15 GM TUBE TOPICAL SCH ×4 (09:29→21:01)
[2017-12-05] MEDS: Moisturizing CREAM* 120 GM JAR TOPICAL SCH ×2 (09:29→21:01)
--- NOTE | 2017-12-05 09:33 | PN ---
Progress Note - Progress Note Date of Service: 12/05/17 SOAP: Subjective: Pt is doing well. Pain controlled. Compliant with heel weight bearing. Denies F /C, CP/SOB or calf pain Objective: PE: 72 y/o M NAD LLE: dressing changed, well healing inc with minimal erythema and no active drainage, calf soft NT, +DF/PF ankle, decreased sensation distally, + 2 DP pulse Vital Signs Temp Pulse Resp BP Pulse Ox 97.7 F 64 16 141/73 100 12/05/17 07:35 12/05/17 07:35 12/05/17 08:48 12/05/17 07:35 12/05/17 07:35 Laboratory Results - last 24 hr 12/04/17 12/04/17 12/05/17 11:56 17:09 07:36 POC Glucose (mg/dL) 232 H 158 H 135 H Assessment: s/p 1st L prox toe amp 2/[address] Heck. POD 3 Plan: - Cont ABX per ID - Appreciate hosp input for medical mgmt - DVT prophylaxis per hosp - Cont PT- Heel weight bearing. - Dispo per medicine. Will likely require IV abx for several weeks. D/C to [facility] when stable, awaiting bed
[2017-12-05] MEDS: oxyCODONE TAB* 5 MG TAB PO SCH (20:59)
[2017-12-06] MEDS: Cefepime 2 GM in Dextrose(*) 2 GM/50 ML BAG IV SCH (05:53)
--- NOTE | 2017-12-06 08:07 | PN ---
Subjective Date of Service: 12/06/17 Interval History: No new c/o. No change in his bowel habits. 1 BM recorded for 12/05. Pt requests that any med changes be discussed with him. Family History: Unchanged from Admission Social History: Unchanged from Admission Past Medical History: Unchanged from Admission Objective Active Medications: Ascorbic Acid (Vitamin C Tab*) 500 mg PO BID [facility] Last Admin: 12/05/17 20:59 Dose: 500 mg Clopidogrel Bisulfate (Plavix Tab*) 75 mg PO DAILY [facility] Last Admin: 12/05/17 09:26 Dose: 75 mg Dextrose (D50w Syringe 50 Ml*) 12.5 gm IV PUSH .FOR FS < 60 - SS PRN PRN Reason: FS < 60 Diphenhydramine HCl (Benadryl Po*) 25 mg PO BID PRN PRN Reason: ITCHING Last Admin: 12/04/17 21:34 Dose: 25 mg Docusate Sodium (Colace Cap*) 200 mg PO DAILY PRN PRN Reason: CONSTIPATION Ferrous Sulfate (Ferrous Sulfate Tab*) 325 mg PO DAILY [facility] Last Admin: 12/05/17 09:25 Dose: 325 mg Furosemide (Lasix Tab*) 40 mg PO DAILY [facility] Last Admin: 12/05/17 09:26 Dose: 40 mg Cefepime HCl (Maxipime 2 Gm In Dextrose Duplex (*)) 2 gm in 50 mls @ 100 mls/ hr IV Q12H [facility] Last Admin: 12/06/17 05:53 Dose: 100 mls/hr Insulin Glargine (Lantus(*)) 20 units SUBCUT BEDTIME [facility] Last Admin: 12/05/17 21:00 Dose: 20 units Insulin Human Lispro (Humalog*) 0 units SUBCUT AC [facility] PRN Reason: Protocol Last Admin: 12/05/17 17:34 Dose: 2 unit Lactobacillus Rhamnosus (Culturelle*) 1 cap PO BID [facility] Last Admin: 12/05/17 21:00 Dose: 1 cap Loperamide HCl (Imodium Cap*) 2 mg PO .SEE DIRECTIONS PRN PRN Reason: DIARRHEA Last Admin: 11/29/17 21:00 Dose: 2 mg Losartan Potassium (Cozaar Tab*) 25 mg PO DAILY [facility] Last Admin: 12/05/17 09:25 Dose: 25 mg Magnesium Oxide (Magox 400 Tab*) 400 mg PO BID [facility] Last Admin: 12/05/17 20:59 Dose: 400 mg Metoprolol Tartrate (Lopressor Tab*) 25 mg PO BID [facility] Last Admin: 12/05/17 21:00 Dose: 25 mg Multi-Ingredient Ointment (Hydrocerin*) 1 applic TOPICAL BID [facility] Last Admin: 12/05/17 21:01 Dose: Not Given Oxycodone HCl (Roxycodone Tab*) 5 mg PO BEDTIME [facility] Last Admin: 12/05/17 20:59 Dose: 5 mg Oxycodone HCl (Roxycodone Tab*) 5 mg PO Q4H PRN PRN Reason: PAIN Pantoprazole Sodium (Protonix Tab (Nf)) 40 mg PO DAILY [facility] Last Admin: 12/05/17 09:25 Dose: 40 mg Potassium Chloride (Klor Con Er Tab*) 20 meq PO DAILY [facility] Last Admin: 12/05/17 09:25 Dose: 20 meq Rivaroxaban (Xarelto(*)) 20 mg PO DAILY [facility] Last Admin: 12/05/17 09:25 Dose: 20 mg Senna (Senokot Tab*) 2 tab PO DAILY PRN PRN Reason: CONSTIPATION Triamcinolone Acetonide (Triamcinolone 0.5% Oint *) 1 applic TOPICAL QID [facility] Last Admin: 12/05/17 21:01 Dose: Not Given Vital Signs - 8 hr 12/06/17 12/06/17 12/06/17 00:58 01:07 03:18 Temperature 97.3 F Pulse Rate 55 Respiratory 16 16 Rate Blood Pressure 139/66 (mmHg) O2 Sat by Pulse 98 100 Oximetry Oxygen Devices in Use Now: None Appearance: Alert, partly up in bed. In fair spirits. Looks comfortable. Extremities: No Edema, No Clubbing, Cyanosis Skin: No Nodules or Sclerosis, - - Both lower legs markedly hyperpigmented. Neurological: Alert and Oriented x 3, NL Sensation Result Diagrams: 12/04/17 07:58 12/04/17 07:58 Additional Lab and Data: Laboratory Tests 11/27/17 11/27/17 11/28/17 14:20 18:25 08:14 Glucose 198 H POC Glucose (mg/dL) 141 H 137 H 11/28/17 11:22 Glucose POC Glucose (mg/dL) 194 H Microbiology and Other Data: Microbiology 12/02/17 15:50 Gram Stain - Preliminary Toe Assess/Plan/Problems-Billing Assessment: Mr. Cardoza is a 72 year old man with PMH significant for diabetes, PVD, admitted w / possible worsening of LT great toe gangrene - Patient Problems (1) Osteomyelitis Current Visit: Yes Status: Acute Code(s): M86.9 - OSTEOMYELITIS, UNSPECIFIED SNOMED Code(s): 26969138 Comment: - S/P Left 1st toe amputation . CRP 12/06. - Continue cefepime. I will discuss with Dr. Julien 12/06/17. (2) Type 2 diabetes mellitus Current Visit: Yes Status: Chronic Priority: Medium Comment: - Increased dose of lantus 20 U started 12/05 9 PM, continue lispro SS. (3) Systolic CHF Current Visit: No Status: Chronic Code(s): I50.20 - UNSPECIFIED SYSTOLIC ( CONGESTIVE) HEART FAILURE SNOMED Code(s): 555666833 Comment: - Last EF 65% 10/2017 - Daily weights and strict I+O's - Reduce Lasix to 40 mg daily, stop IV fluids. (4) Severe aortic stenosis Current Visit: No Status: Chronic Code(s): I35.0 - NONRHEUMATIC AORTIC ( VALVE) STENOSIS SNOMED Code(s): 06267248 Comment: - S/P TAVR (5) CKD (chronic kidney disease) stage 3, GFR 30-59 ml/min Current Visit: Yes Status: Acute Code(s): N18.3 - CHRONIC KIDNEY DISEASE, STAGE 3 (MODERATE) SNOMED Code(s): 649125859 Comment: GFR 58.1 on 12/04/17/. Status and Disposition: Inpatient. Suspect Pt will require tree scout IV ABX, S/P toe amputation. Discharge back to subacute rehab when stable. Waiting for bed offer
[2017-12-06] MEDS: Insulin LISPRO* 1 UNITS UNIT SUBCUT SCH (08:24)
[2017-12-06] MEDS: Magnesium Oxide TAB* 400 MG PO SCH (08:25)
[2017-12-06] MEDS: Losartan TAB* 25 MG PO SCH (08:25)
[2017-12-06] MEDS: Ferrous Sulfate TAB* 325 MG PO SCH (08:25)
[2017-12-06] MEDS: CMC:Pantoprazole TAB (NF) 40 MG TAB PO SCH (08:25)
[2017-12-06] MEDS: Ascorbic Acid TAB* 500 MG PO SCH (08:25)
[2017-12-06] MEDS: Clopidogrel TAB* 75 MG PO SCH (08:25)
[2017-12-06] MEDS: Potassium Chlor TAB* 10 MEQ TAB.ER PO SCH (08:26)
[2017-12-06] MEDS: Furosemide TAB* 40 MG PO SCH (08:26)
[2017-12-06] MEDS: Rivaroxaban TAB(*) 20 MG TAB PO SCH (08:26)
[2017-12-06] MEDS: Lactobacillus Acidophilu (GG)* 1 CAP CAP PO SCH (08:26)
[2017-12-06] MEDS: Metoprolol Tartrate TAB* 25 MG PO SCH (08:26)
[2017-12-06] MEDS: Triamcinolone 0.5% OINT * 15 GM TUBE TOPICAL SCH ×2 (08:28→08:34)
[2017-12-06] MEDS: Moisturizing CREAM* 120 GM JAR TOPICAL SCH ×2 (08:28→08:32)
[2017-12-06 09:16] VITALS: BP 130/67
--- NOTE | 2017-12-06 21:55 | DS ---
DISCHARGE SUMMARY/ADMISSION HISTORY AND PHYSICAL: DATE OF ADMISSION: 12/06/17 DATE OF DISCHARGE: 12/06/17 The patient is being discharged from acute bed and admitted to swing bed. HISTORY OF PRESENT ILLNESS/HOSPITAL COURSE: This patient was admitted as an acute patient on 11/27/17 with worsening redness of his left toe ulceration. He had prior amputation of his second toe for osteomyelitis. He was found to have osteomyelitis of his great toe. He was seen in consultation by Dr. Tam because of his peripheral vascular disease. On 12/02/17, he had amputation of the left great toe by Dr. Heck. His postop course was uneventful. He was seen in consultation by Dr. Julien. He will get antibiotics as per Dr. Julien's recommendations of 12/06/17. There will be a separate note to document this. The patient's blood sugar was checked four times a day and given the lispro coverage, he was placed on Lantus and the dose was increased to 20 units daily. DISCHARGE AND ADMISSION DIAGNOSES: 1. Osteomyelitis of the left great toe, status post amputation, 12/02/17. 2. Diabetes mellitus. 3. Diastolic heart failure. 4. Aortic stenosis, status post transcatheter aortic valve replacement. 5. Chronic kidney disease with GFR of 58.1 on 12/04/17. The patient is on swing bed status as of this date. [id number]/[facility] #: [id number] MTDD
== END 2017-12-06 09:34 | disposition swing bed (61) | DRG 617 ==
LOC: ED 13:14 → MED 15:23
PROVIDERS: ADMIT Internal Medicine; ATTEND Internal Medicine
PROC: 0Y6Q0Z1 Detachment at Left 1st Toe, High, Open Approach (ICD-10-PCS; principal; 2017-12-02 14:15)
DX: E11.69 Type 2 diabetes mellitus with other specified complication (principal); M86.8X7 Other osteomyelitis, ankle and foot; N17.9 Acute kidney failure, unspecified; I96 Gangrene, not elsewhere classified; E11.22 Type 2 diabetes mellitus with diabetic chronic kidney disease; I13.0 Hypertensive heart and chronic kidney disease with heart failure and stage 1 through stage 4 chronic kidney disease, or unspecified chronic kidney disease; I48.92 Unspecified atrial flutter; I50.20 Unspecified systolic (congestive) heart failure; F32.1 Major depressive disorder, single episode, moderate; E11.52 Type 2 diabetes mellitus with diabetic peripheral angiopathy with gangrene; R45.851 Suicidal ideations; E11.621 Type 2 diabetes mellitus with foot ulcer; E11.51 Type 2 diabetes mellitus with diabetic peripheral angiopathy without gangrene; B95.61 Methicillin susceptible Staphylococcus aureus infection as the cause of diseases classified elsewhere; N18.2 Chronic kidney disease, stage 2 (mild); L03.032 Cellulitis of left toe; M54.89 Other dorsalgia; Z95.2 Presence of prosthetic heart valve; Z86.718 Personal history of other venous thrombosis and embolism; Z79.01 Long term (current) use of anticoagulants; Z86.711 Personal history of pulmonary embolism; Z86.73 Personal history of transient ischemic attack (TIA), and cerebral infarction without residual deficits; Z79.84 Long term (current) use of oral hypoglycemic drugs; Z79.1 Long term (current) use of non-steroidal anti-inflammatories (NSAID); Z79.82 Long term (current) use of aspirin; Z79.4 Long term (current) use of insulin; Z79.891 Long term (current) use of opiate analgesic; Z79.899 Other long term (current) drug therapy; Z88.1 Allergy status to other antibiotic agents; Z83.3 Family history of diabetes mellitus; Z82.49 Family history of ischemic heart disease and other diseases of the circulatory system
CPT/HCPCS: 36415; 76000; 80048; 80053; 80202; 82550; 82565; 82570; 83735; 84300; 84520; 85025; 85610; 85652; 85730; 86140; 87040; 87070; 87073; 87077; 87186; 87205; 87640; 87641; A9270-GY; J0692; J1650; J2250; J2543; J2704; J3010; J3370

== ENCOUNTER 2017-12-06 09:33 | Inpatient (IN) | payer MEDICARE, BC ==
[2017-12-06] MEDS ORDERED: oxyCODONE TAB* 5 MG TAB PO PRN (09:49)
[2017-12-06] MEDS ORDERED: diPHENhydraMINE PO* 25 MG PO PRN (09:49)
[2017-12-06] MEDS ORDERED: Senna TAB PO PRN (09:49)
[2017-12-06] MEDS ORDERED: Dextrose 50% Syringe 50 ML* 25 GM/50 ML SYRINGE IV PUSH PRN (09:57)
--- NOTE | 2017-12-06 10:04 | PN ---
Progress Note - Progress Note Date of Service: 12/06/17 Note: Time spent on discharge 55 minutes.
--- NOTE | 2017-12-06 12:09 | PN ---
Progress Note - Progress Note Date of Service: 12/06/17 SOAP: Subjective: 72 yo male s/p amputation L first great toe. Patient working well with PT, would like different shoe. VSS afebrile Objective: General- Well appearinag NAD MSK- dressing removed, incision c/d/i, foot violociaous with mild edema, + blanching. minimal warmth. Redressed. Assessment: Stable 72 y/o 1st L toe amputation Plan: - COninue abx per ID - Swing bed status until room available. - Continue to monitor - Continue PT - Remove sutures around 12/15 Active Medications Generic Name Dose Route Start Last Admin Trade Name Freq PRN Reason Stop Dose Admin Ascorbic Acid 500 mg 12/06/17 21:00 Vitamin C Tab* PO BID [facility] Clopidogrel Bisulfate 75 mg 12/07/17 09:00 Plavix Tab* PO DAILY [facility] Cyanocobalamin 1,000 mcg 12/07/17 09:00 Vitamin B12 Tab* PO DAILY [facility] Dextrose 12.5 gm 12/06/17 09:57 D50w Syringe 50 Ml* IV PUSH .FOR FS < 60 - SS PRN FS < 60 Diphenhydramine HCl 25 mg 12/06/17 09:49 Benadryl Po* PO BID [facility] Ferrous Sulfate 325 mg 12/07/17 09:00 Ferrous Sulfate Tab* PO DAILY [facility] Furosemide 40 mg 12/07/17 09:00 Lasix Tab* PO DAILY [facility] Insulin Glargine 20 units 12/06/17 21:00 Lantus(*) SUBCUT BEDTIME [facility] Insulin Human Lispro 0 units 12/06/17 11:30 Humalog* SUBCUT ACHS [facility] Protocol Magnesium Oxide 400 mg 12/06/17 21:00 Magox 400 Tab* PO BID [facility] Metformin HCl 1,000 mg 12/06/17 17:00 Glucophage* PO BID WITH MEALS [facility] Metoprolol Tartrate 25 mg 12/06/17 21:00 Lopressor Tab* PO BID [facility] Oxycodone HCl 5 mg 12/06/17 09:49 Roxycodone Tab* PO Q4HR PRN PAIN Oxycodone HCl 5 mg 12/06/17 21:00 Roxycodone Tab* PO BEDTIME [facility] Pantoprazole Sodium 20 mg 12/07/17 09:00 Protonix Tab (Nf) PO DAILY [facility] Potassium Chloride 20 meq 12/07/17 09:00 Klor Con Er Tab* PO DAILY [facility] Rivaroxaban 20 mg 12/07/17 08:30 Xarelto(*) PO DAILY WITH MEAL [facility] Senna 2 tab 12/06/17 09:49 Senokot Tab* PO DAILY [facility] CONSTIPATION Triamcinolone Acetonide 1 applic 12/06/17 13:00 Triamcinolone 0.5% Oint * TOPICAL QID [facility]
[2017-12-06] MEDS: Insulin LISPRO* 1 UNITS UNIT SUBCUT SCH ×3 (12:37→20:48)
[2017-12-06] MEDS: Triamcinolone 0.5% OINT * 15 GM TUBE TOPICAL SCH ×3 (15:27→20:51)
[2017-12-06] MEDS: metFORMIN* 1,000 MG TAB PO SCH (17:49)
[2017-12-06] MEDS: Cefepime 2 GM in Dextrose(*) 2 GM/50 ML BAG IV SCH (18:44)
[2017-12-06] MEDS: Magnesium Oxide TAB* 400 MG PO SCH (20:50)
[2017-12-06] MEDS: Ascorbic Acid TAB* 500 MG PO SCH (20:50)
[2017-12-06] MEDS: Metoprolol Tartrate TAB* 25 MG PO SCH (20:50)
[2017-12-06] MEDS ORDERED: Insulin GLARGINE(*) 1 UNITS UNIT SUBCUT SCH ×2 (21:00)
[2017-12-06] MEDS ORDERED: oxyCODONE TAB* 5 MG TAB PO SCH (21:00)
[2017-12-07] MEDS: Cefepime 2 GM in Dextrose(*) 2 GM/50 ML BAG IV SCH (05:53)
[2017-12-07] MEDS ORDERED: Rivaroxaban TAB(*) 20 MG TAB PO SCH (08:30)
[2017-12-07] MEDS: Insulin LISPRO* 1 UNITS UNIT SUBCUT SCH ×2 (08:49→12:32)
[2017-12-07] MEDS: metFORMIN* 1,000 MG TAB PO SCH (08:49)
[2017-12-07] MEDS: Magnesium Oxide TAB* 400 MG PO SCH (08:51)
[2017-12-07] MEDS: Ascorbic Acid TAB* 500 MG PO SCH (08:51)
[2017-12-07] MEDS: Triamcinolone 0.5% OINT * 15 GM TUBE TOPICAL SCH ×2 (08:51→12:32)
[2017-12-07] MEDS: Metoprolol Tartrate TAB* 25 MG PO SCH (08:51)
[2017-12-07] MEDS ORDERED: Ferrous Sulfate TAB* 325 MG PO SCH (09:00)
[2017-12-07] MEDS ORDERED: PTO:Pantoprazole TAB (NF) 20 MG TAB PO SCH (09:00)
[2017-12-07] MEDS ORDERED: Furosemide TAB* 20 MG PO SCH (09:00)
[2017-12-07] MEDS ORDERED: Clopidogrel TAB* 75 MG PO SCH (09:00)
[2017-12-07] MEDS ORDERED: Potassium Chlor TAB* 20 MEQ TAB.ER PO SCH (09:00)
[2017-12-07] MEDS ORDERED: Cyanocobalamin TAB* 500 MCG PO SCH (09:00)
[2017-12-07 10:16] VITALS: BP 123/64
[2017-12-07] MEDS ORDERED: PANTOPRAZOLE 20 MG PO SCH (14:05)
--- NOTE | 2017-12-07 14:08 | DS ---
ADDENDUM NOW INCLUDED ON THIS REPORT CC: [facility] * DATE OF ADMISSION: 12/06/2017. DATE OF DISCHARGE: 12/07/2017. PRINCIPAL DISCHARGE DIAGNOSIS: Left hallux dry gangrene, status post amputation. SECONDARY DIAGNOSES: Peripheral vascular disease, chronic osteomyelitis, aortic valve stenosis, status post TAVR, insulin dependent diabetes, nephrolithiasis, CKD. DISCHARGE MEDICATIONS: 1. Metoprolol 25 mg b.i.d. 2. Magnesium Oxide 400 mg b.i.d. 3. Xarelto 20 mg daily. 4. KCL 20 mEq daily. 5. Lasix 40 mg on Wednesday, Wednesday, , Wednesday and 80 mg on the other days. 6. Omeprazole 20 mg daily. 7. Losartan 25 mg daily. 8. Ferrous Sulfate 325 mg daily. 9. Oxycodone 5 mg at bedtime. 10. Tylenol 650 mg q.8 prn pain. 11. Oxycodone 5 mg q.4 prn pain. 12. Senna daily. 13. Metformin 1,000 mg b.i.d. 14. Plavix 75 mg daily. 15. Lantus 20 units at bedtime. 16. Keflex 500 mg t.i.d. for 3 more weeks. HOSPITAL COURSE BY PROBLEM: 1. Mr. Cardoza is a 72-year-old man who was recently admitted to the Hospitalist Service from November 27 to December 06 for dry gangrene of the left hallux and underwent an amputation on 12/02/2017. Please see Dr. Juan's discharge summary from December 06 for the full details of this admission. On December 06, he was discharged from the hospital and admitted to a swing bed, and on December 07 he is getting a bed at [facility], so will be transferred back there today. I discussed the case with Dr. Julien regarding his gangrene, status post amputation and he recommended three more weeks of p.o. Keflex, the start date is December 07. 2. Poorly-controlled diabetes: Please note that his Lantus was increased to 20 units nightly during this admission. 3. History of DVT: Continue Xarelto. 4. Peripheral vascular disease: Continue Plavix. He was evaluated by Dr. Tam during this admission who recommended operative intervention on this toe and believes that conservative measures would not improve the outcome of his left hallux. FOLLOW-UP NEEDED: Please arrange follow-up with Dr. Gurdeep Heck from Orthopedic Surgery for Mr. Cardoza. He needs three more weeks of Keflex from today , the end date is December 28, the dose is 500 mg t.i.d. ADDENDUM: I discussed the case with Orthopedic Surgery and Mr. Cardoza is not to shower until he has seen the orthopedic surgeon as followup in the office. Please schedule a followup for Mr. Cardoza to see Orthopedic Surgery within 1 to 2 weeks of discharge. [id number]/[facility] #: [id number] A- [id number]/[facility] #: [id number] [facility]
--- NOTE | 2017-12-07 16:02 | PN ---
Progress Note - Progress Note Date of Service: 12/07/17 SOAP: Subjective: []Patient seen at bedside. He denies LLE pain, fever or chills. Objective: []General- Well appearing NAD MSK- dressing changed, incision c/d/i, 1+ DP pulse. Brisk capillary refill and sensation intact distally. Vital Signs Temp 98.0 F 12/07/17 08:23 Pulse 70 12/07/17 08:23 Resp 18 12/07/17 08:23 BP 123/64 12/07/17 08:23 Pulse Ox 98 12/07/17 08:23 Intake & Output 12/06/17 12/07/17 12/07/17 18:59 06:59 18:59 Intake Total 120 50 120 Output Total 1025 275 Balance -905 -225 120 Weight 215 lb 8 oz Intake: IVPB 50 ABX - CEFEPIME 50 Oral 120 0 120 Output: Urine 1025 275 Other: # Bowel Movements 0 0 Estimated Stool Amount Medium # Voids 0 Laboratory Last Values POC Glucose (mg/dL) 221 mg/dL (70-100) H 12/07/17 12:22 Assessment: Stable 72 y/o s/p 1st L toe amputation Plan: - Continue abx per ID - Back to CR today - Continue PT - Remove sutures approx 12/15
--- NOTE | 2017-12-08 00:16 | DS ---
CC: [facility] DISCHARGE SUMMARY: ADDENDUM: I discussed the case with Orthopedic Surgery and Mr. Cardoza is not to shower until he has seen the orthopedic surgeon as followup in the office. Please schedule a followup for Mr. Cardoza to see Orthopedic Surgery within 1 to 2 weeks of discharge. [id number] #: [id number] MTDD
== END 2017-12-07 14:50 | DRG 300 ==
LOC: MED 09:34
PROVIDERS: ADMIT Internal Medicine; ATTEND Internal Medicine
DX: E11.52 Type 2 diabetes mellitus with diabetic peripheral angiopathy with gangrene (principal); I96 Gangrene, not elsewhere classified; E11.22 Type 2 diabetes mellitus with diabetic chronic kidney disease; E11.65 Type 2 diabetes mellitus with hyperglycemia; M86.672 Other chronic osteomyelitis, left ankle and foot; Z89.412 Acquired absence of left great toe; E11.51 Type 2 diabetes mellitus with diabetic peripheral angiopathy without gangrene; E11.69 Type 2 diabetes mellitus with other specified complication; Z95.2 Presence of prosthetic heart valve; N18.9 Chronic kidney disease, unspecified; Z79.4 Long term (current) use of insulin; Z79.1 Long term (current) use of non-steroidal anti-inflammatories (NSAID); Z79.891 Long term (current) use of opiate analgesic; Z79.899 Other long term (current) drug therapy
CPT/HCPCS: A9270-GY; J0692

== ENCOUNTER 2018-05-10 10:27 | Day surgery (SDC) | payer MEDICARE, OTHER ==
[~2018-05-10 10:27] MED LIST: Acetaminophen TAB* 325 MG PO PRN; Buffered Lidocaine 0.9% SYRIN* 5 ML/SYR SYRINGE INTRADERM ONE
[2018-05-10] MEDS ORDERED: Ketorolac 0.5% OPHTH (NF) 0.5 % 5 ML BTL ONE (11:09)
[2018-05-10] MEDS ORDERED: Neomycin/Polymy/Dex OPHTH.OIN* 3.5 GM ONE (11:09)
[2018-05-10] MEDS ORDERED: Lidocaine 1%* 5 ML VIAL ONE (11:09)
[2018-05-10] MEDS ORDERED: Tropicamide 1% OPTH.SOL* BTL ONE (11:09)
[2018-05-10] MEDS ORDERED: Phenylephrine 2.5% OPTH.SOL* 2 ML BTL ONE (11:09)
[2018-05-10] MEDS ORDERED: Cyclopentolate 1% OPTH.SOL* 2 ML BTL ONE (11:09)
[2018-05-10] MEDS ORDERED: Tetracaine 0.5% OPTH.SOL 4 ML* 1 DROP BTL ONE (11:09)
[2018-05-10] MEDS ORDERED: Phenylephr/Ketorolac 1%/0.3% OPH DROP BTL ONE (11:12)
[2018-05-10] MEDS ORDERED: fentaNYL* 50 MCG/ML 2 ML VIAL (100 MCG VIAL) ONE (13:02)
[2018-05-10] MEDS ORDERED: Midazolam* 1 MG/ML 2 ML VIAL (2 MG) ONE (13:03)
[2018-05-10 14:07] VITALS: BP 117/63
--- NOTE | 2018-05-10 15:26 | OP ---
DATE OF OPERATION/DATE OF DICTATION: 05/10/2018 - [facility] DATE OF : 1945. SURGEON: Dr. Ian Youssef. DIRECTOR OF FIELD SALES: None. ANESTHESIA: Topical with intravenous sedation. PRE-OP DIAGNOSIS: Cataract, right eye. POST-OP DIAGNOSIS: Cataract, right eye. OPERATIVE PROCEDURE: Phacoemulsification and cataract extraction with posterior chamber intraocular lens implant, right eye. COMPLICATIONS: None. BLOOD LOSS: None. DESCRIPTION OF PROCEDURE: The patient was brought to the operating room and received a small amount of intravenous sedation. A drop of Tetracaine was placed in his right eye. He was prepped and draped in the usual sterile fashion for ophthalmic surgery and attention was directed to the right eye where a speculum was placed. A paracentesis was created at the 11 o'clock position and 0.1 cc of 1 percent preservative-free Lidocaine was injected into the anterior chamber followed by DisCoVisc. The eye was digitally stabilized while a 2.75 mm keratome was used to create a triplanar clear corneal incision at the 9 o'clock position. A continuous curvilinear capsulorrhexis was created with a cystotome and Utrata forceps. BSS on a cannula was used to hydrodissect the lens from the capsule. Phacoemulsification was performed in a divide-and- conquer technique to create four fragments which were removed. Residual cortical material was removed with irrigation and aspiration. DisCoVisc was used to inflate the capsular bag and an AUOOTO 24.5 diopter lens was folded and inserted into the capsular bag. DisCoVisc was removed using irrigation and aspiration. BSS on a cannula was used to hydrate the corneal stroma and seal the wound. At the end of the case the pupil was round and the lens was centered. The eye was of normal pressure and the wound was water tight. The speculum was removed and topical Maxitrol ointment was placed on the surface of the eye. The eye was closed, patched and shielded and the patient was sent to the recovery room in stable condition with post operative instructions and follow-up appointment given. [id number]/CPS #: [id number] MTDD
== END 2018-05-10 14:06 | disposition home or self-care (01) ==
LOC: OREAST 10:27
PROVIDERS: ATTEND Ophthalmology
DX: H25.11 Age-related nuclear cataract, right eye (principal); E11.9 Type 2 diabetes mellitus without complications; Z79.84 Long term (current) use of oral hypoglycemic drugs; Z95.2 Presence of prosthetic heart valve; Z79.01 Long term (current) use of anticoagulants; I48.91 Unspecified atrial fibrillation; I10 Essential (primary) hypertension; E55.9 Vitamin D deficiency, unspecified; E87.6 Hypokalemia; E83.42 Hypomagnesemia; K21.9 Gastro-esophageal reflux disease without esophagitis; M19.90 Unspecified osteoarthritis, unspecified site
CPT/HCPCS: A9270-GY; C9447; J2250; J3010; V2632

== ENCOUNTER → 2018-05-19 06:37 | Day surgery (SDC) | payer MEDICARE, BC ==
[~2018-05-19 06:37] MED LIST changes: -Acetaminophen TAB* 325 MG PO PRN; +Dextrose 50% VIAL 50 ml ONE; +Famotidine IV* 10 MG/ML 2 ML (20 mg) IV ONE; +Famotidine IV* 10 MG/ML 2 ML (20 mg) ONE; +HYDROcodone/ACETAMIN 5-325 MG* 1 TAB PO PRN; +Lidocaine 2% PF * 5 ML VIAL ONE; +Midazolam* 1 MG/ML 2 ML VIAL (2 MG) ONE; +Naloxone* 0.4 MG/ML 1 ML VIAL IV PRN; +PROCHLORPERAZINE INJ 5 MG/ML 2 ML VIAL IV PRN; +Propofol* 10 MG/ML 20 ML BTL IV PUSH ONE; +ceFAZolin 2 GM PREMIX (*) 2 GM/50 ML BAG IVPB ONE; +fentaNYL* 50 MCG/ML 2 ML VIAL (100 MCG VIAL) IV PRN; +fentaNYL* 50 MCG/ML 2 ML VIAL (100 MCG VIAL) ONE; +oxyCODONE/Acetamin 5/325 MG* TAB PO PRN
--- NOTE | 2018-05-19 10:10 | OP ---
Operative Report - Blank - Operative Report Date of Operation: 05/19/18 Note: PATIENT: Carlos Cardoza DATE OF : 1945 DATE OF SURGERY: 05/19/2018 SURGEON: Gurdeep Heck MD PHOTOGRAPHIC ENLARGER OPERATOR: ROSALBA Ordonez, whos assistance was necessary for positioning , retraction, help with instrumentation, and closure. ANESTHESIOLOGIST: Dr. Epps PREOPERATIVE DIAGNOSIS: Left third toe osteomyelitis POSTOPERATIVE DIAGNOSIS: Left third toe osteomyelitis OPERATION: Left third toe amputation at the level of the MTP joint ANESTHESIA: MAC IMPLANTS: none TOURNIQUET TIME: Less than 30 minutes with an ankle Esmarch tourniquet. SPECIMENS: Toe to pathology ESTIMATED BLOOD LOSS: minimal COMPLICATIONS: none STATUS: Stable from the operating room to the recovery room. INDICATIONS FOR PROCEDURE: Carlos has had multiple foot ulcers and infections. He has had prior toe amputations by me and Dr. Márquez. He developed a left third toe ulcer with osteomyelitis confirmed on MRI. Both operative and non operative treatment alternatives were reviewed. Further, the nature and risks of surgery were reviewed in careful detail. Our discussions regarding the risks of surgery included, but were not limited to, wound infection, wound problems, nerve injury , neuroma, RSD, persistent symptoms, blood clot, persistent or worsening infection, failure of the surgery, need for further amputation, and even the remote chance of catastrophic complication, including loss of limb. DESCRIPTION OF PROCEDURE: The patient was seen in the preoperative holding unit and informed written consent was obtained. The appropriate extremity was marked. The patient was then brought to the operating room and carefully positioned on the operating room table. Anesthesia was induced. All bony prominences were padded with great care. A chlorhexidine based pre-scrub was performed followed by a chloraprep prep and drape in standard sterile fashion. A surgical safety pause was then conducted in which we confirmed the appropriate patient, extremity, planned procedure, availability of equipment, indication and administration of antibiotics, and DVT prophylaxis in the form of a compression boot on the non- surgical extremity. I began with application of an ankle Esmarch tourniquet. Care was taken not to compress the infected toe. I then made an incision to remove the distal aspect of the toe. I maintained as much healthy soft-tissue length as was possible. The phalanges were dissected out and the toe was amputated at the level of the MTP joint. The phalanges were clearly infected, and the bone was of very poor quality. The toe was then sent to pathology. The metatarsal head appeared to be of better quality. There was no purulence expressed from more proximal. We then irrigated copiously after removing the ankle Esmarch tourniquet. The skin edges were pink. We closed with 3-0 monocryl and then 3-0 nylon and then placed a sterile dressing. The patient was then awakened from anesthesia and transferred to the recovery room in stable condition. There were no complications. All needle and sponge counts were correct at the end of the case. ATTESTATION: I attest I was present and scrubbed and performed the critical portions of the procedure myself. POSTOPERATIVE PLAN: The patient may be heel weight-bearing in a post-operative shoe and will follow up will be in two weeks for a wound check, but we will likely leave the sutures in for 3 weeks. He will remain on doxycycline.
[2018-05-19 10:25] VITALS: BP 126/81
== END | disposition home or self-care (01) ==
LOC: OR 06:37
PROVIDERS: ATTEND Orthopaedic Surgery
DX: M86.172 Other acute osteomyelitis, left ankle and foot (principal); E11.621 Type 2 diabetes mellitus with foot ulcer; I73.9 Peripheral vascular disease, unspecified; Z79.84 Long term (current) use of oral hypoglycemic drugs; I42.9 Cardiomyopathy, unspecified; E78.5 Hyperlipidemia, unspecified; I10 Essential (primary) hypertension; K21.9 Gastro-esophageal reflux disease without esophagitis; Z79.01 Long term (current) use of anticoagulants; D64.9 Anemia, unspecified; Z86.73 Personal history of transient ischemic attack (TIA), and cerebral infarction without residual deficits; G62.9 Polyneuropathy, unspecified
CPT/HCPCS: 88305; 88311; J0690; J2250; J2704; J3010

== ENCOUNTER 2018-05-24 08:07 | Day surgery (SDC) | payer MEDICARE, BC ==
[~2018-05-24 08:07] MED LIST changes: +Acetaminophen TAB* 325 MG PO PRN; -Dextrose 50% VIAL 50 ml ONE; -Famotidine IV* 10 MG/ML 2 ML (20 mg) IV ONE; -Famotidine IV* 10 MG/ML 2 ML (20 mg) ONE; -HYDROcodone/ACETAMIN 5-325 MG* 1 TAB PO PRN; -Lidocaine 2% PF * 5 ML VIAL ONE; -Midazolam* 1 MG/ML 2 ML VIAL (2 MG) ONE; -Naloxone* 0.4 MG/ML 1 ML VIAL IV PRN; -PROCHLORPERAZINE INJ 5 MG/ML 2 ML VIAL IV PRN; -Propofol* 10 MG/ML 20 ML BTL IV PUSH ONE; -ceFAZolin 2 GM PREMIX (*) 2 GM/50 ML BAG IVPB ONE; -fentaNYL* 50 MCG/ML 2 ML VIAL (100 MCG VIAL) IV PRN; -fentaNYL* 50 MCG/ML 2 ML VIAL (100 MCG VIAL) ONE; -oxyCODONE/Acetamin 5/325 MG* TAB PO PRN
[2018-05-24 09:53] VITALS: BP 188/72
[2018-05-24] MEDS ORDERED: Phenylephr/Ketorolac 1%/0.3% OPH DROP BTL ONE (14:10)
--- NOTE | 2018-05-25 03:32 | OP ---
DATE OF OPERATION: 05/24/[address] [facility] DATE OF : [birth year] SURGEON: Dr. Ian Youssef. RUG SCRATCHER: None. ANESTHESIA: Topical with intravenous sedation. PRE-OP DIAGNOSIS: Cataract, left eye. POST-OP DIAGNOSIS: Cataract, left eye. OPERATIVE PROCEDURE: Phacoemulsification and cataract extraction with posterior chamber intraocular lens implant, left eye. COMPLICATIONS: None. BLOOD LOSS: None. DESCRIPTION OF PROCEDURE: The patient was brought to the operating room and received a small amount of intravenous sedation. A drop of Tetracaine was placed in his left eye. He was prepped and draped in the usual sterile fashion for ophthalmic surgery and attention was directed to the left eye where a speculum was placed. A paracentesis was created at the 5 o'clock position and 0.1 cc of 1 percent preservative-free Lidocaine was injected into the anterior chamber followed by DisCoVisc. The eye was digitally stabilized while a 2.75 mm keratome was used to create a triplanar clear corneal incision at the 3 o' clock position. A continuous curvilinear capsulorrhexis was created with a cystotome and Utrata forceps. BSS on a cannula was used to hydrodissect the lens from the capsule. Phacoemulsification was performed in a divide-and- conquer technique to create four fragments which were removed. Residual cortical material was removed with irrigation and aspiration. DisCoVisc was used to inflate the capsular bag and an AUOOTO 24.5 diopter lens was folded and inserted into the capsular bag. DisCoVisc was removed using irrigation and aspiration. BSS on a cannula was used to hydrate the corneal stroma and seal the wound. At the end of the case the pupil was round and the lens was centered. The eye was of normal pressure and the wound was water tight. The speculum was removed and topical Maxitrol ointment was placed on the surface of the eye. The eye was closed, patched and shielded and the patient was sent to the recovery room in stable condition with post operative instructions and follow-up appointment given. [id number]/CPS #: [id number] CODY
== END 2018-05-24 10:25 | disposition home or self-care (01) ==
LOC: OREAST 08:07
PROVIDERS: ATTEND Ophthalmology
DX: H25.12 Age-related nuclear cataract, left eye (principal); E11.9 Type 2 diabetes mellitus without complications; Z79.84 Long term (current) use of oral hypoglycemic drugs; I48.91 Unspecified atrial fibrillation; Z79.01 Long term (current) use of anticoagulants; I10 Essential (primary) hypertension; Z95.2 Presence of prosthetic heart valve; E55.9 Vitamin D deficiency, unspecified; E87.6 Hypokalemia; M19.90 Unspecified osteoarthritis, unspecified site; E03.9 Hypothyroidism, unspecified; I42.9 Cardiomyopathy, unspecified; Z68.30 Body mass index [BMI] 30.0-30.9, adult; E78.5 Hyperlipidemia, unspecified
CPT/HCPCS: C9447; V2632

== ENCOUNTER → 2018-08-18 11:28 | Day surgery (SDC) | payer MEDICARE, BC ==
[~2018-08-18 11:28] MED LIST changes: -Acetaminophen TAB* 325 MG PO PRN; +Bupivacaine 0.5% SDV PF* 30ML VIAL ONE; +Famotidine IV* 10 MG/ML 2 ML (20 mg) IV ONE; +Famotidine IV* 10 MG/ML 2 ML (20 mg) ONE; +Insulin REGULAR(*) 1 UNITS UNIT ONE; +KETAMINE HCL* 50 MG/ML 10 ML VIAL ONE; +Lidocaine 2% PF * 5 ML VIAL ONE; +Midazolam* 1 MG/ML 5 ML VIAL (5 MG) ONE; +Morphine VIAL* 10 MG/ML 1 ML VIAL ONE; +Naloxone* 0.4 MG/ML 1 ML VIAL IV PRN; +Ondansetron ODT TAB* 4 MG ONE; +Ondansetron TAB* 4 MG PO ONE; +Propofol* 10 MG/ML 20 ML BTL IV PUSH ONE; +ceFAZolin 2 GM PREMIX in ORs 2 GM/50 ML BAG IVPB ONE; +fentaNYL* 50 MCG/ML 2 ML VIAL (100 MCG VIAL) IV PRN; +fentaNYL* 50 MCG/ML 2 ML VIAL (100 MCG VIAL) ONE; +oxyCODONE/Acetamin 5/325 MG* TAB PO PRN
--- NOTE | 2018-08-18 14:54 | OP ---
Operative Report - Blank - Operative Report Date of Operation: 08/18/18 Note: PATIENT: Carlos Cardoza DATE OF : 1945 DATE OF SURGERY: 08/18/2018 SURGEON: Gurdeep Heck MD AUDITING SPECIALIST: none ANESTHESIOLOGIST: Dr. Crockett PREOPERATIVE DIAGNOSIS: Right 2nd claw toe with callous on the tip of the toe. POSTOPERATIVE DIAGNOSIS: Right 2nd claw toe with callous on the tip of the toe. OPERATION: Right 2nd toe flexor tenotomy ANESTHESIA: MAC IMPLANTS: none TOURNIQUET TIME: none SPECIMENS: none ESTIMATED BLOOD LOSS: minimal COMPLICATIONS: none STATUS: Stable from the operating room to the recovery room and then home INDICATIONS FOR PROCEDURE: Carlos has a right second claw toe with distal tip of the toe callus. Both operative and non-operative treatment alternatives were reviewed. Further, the nature and risks of surgery were reviewed in careful detail. Our discussions regarding the risks of surgery included, but were not limited to, infection, wound problems, nerve injury, neuroma, RSD, persistent symptoms, blood clot, need for further surgery, failure of the surgery, and even the remote chance of catastrophic complication, including loss of limb. DESCRIPTION OF PROCEDURE: The patient was seen in the preoperative holding unit and informed written consent was obtained. The appropriate extremity was marked. The patient was then brought to the operating room and carefully positioned on the operating room table. Anesthesia was induced. All bony prominences were padded with great care. A chlorhexidine based pre-scrub was performed followed by a chloraprep prep and drape in standard sterile fashion. A surgical safety pause was then conducted in which we confirmed the appropriate patient, extremity, planned procedure, availability of equipment, indication and administration of prophylactic antibiotics, and DVT prophylaxis in the form of a compression boot on the non-surgical extremity. I used a 15 blade scalpel on the plantar aspect of the second toe to perform a percutaneous flexor tenotomy. I then extended the toe and there was some skin tearing on the plantar aspect. No significant bleeding. I irrigated the wound and then used 4-0 chromic to close the skin tear wound. The patient was then awakened from anesthesia and transferred to the recovery room in stable condition. There were no complications. All needle and sponge counts were correct at the end of the case. ATTESTATION: I attest I was present and scrubbed and performed the critical portions of the procedure myself. POSTOPERATIVE PLAN: He will follow-up in 2 weeks for a wound check.
[2018-08-18 15:29] VITALS: BP 128/80
== END | disposition home or self-care (01) ==
LOC: OR 11:28
PROVIDERS: ATTEND Orthopaedic Surgery
DX: M20.5X1 Other deformities of toe(s) (acquired), right foot (principal); I10 Essential (primary) hypertension; I73.9 Peripheral vascular disease, unspecified; Z79.4 Long term (current) use of insulin; E11.51 Type 2 diabetes mellitus with diabetic peripheral angiopathy without gangrene; Z79.84 Long term (current) use of oral hypoglycemic drugs; N18.3 Chronic kidney disease, stage 3 (moderate); I48.91 Unspecified atrial fibrillation; Z95.2 Presence of prosthetic heart valve; I42.9 Cardiomyopathy, unspecified
CPT/HCPCS: A9270-GY; J0690; J2250; J2270; J2704; J3010

== ENCOUNTER 2021-09-06 06:41 | Inpatient (IN) ==
[2021-09-06 07:47] LABS: ABS Basophils 0.1 10^3/ul (0-0.2); ABS Eosinophils 0.4 10^3/ul (0-0.6); ABS Lymphocytes 0.8 10^3/ul (1.0-4.8); ABS Neutrophils 8.5 10^3/ul (1.5-7.7); Eosinophil % 3.5 %; Hematocrit 26 % (42-52); Hemoglobin 8.4 g/dL (14.0-18.0); Lymphocyte % 7.7 %; Mean Corpuscular HGB Conc 32 g/dL (31-36); Mean Corpuscular Hemoglobin 29 pg (27-31); Mean Corpuscular Volume 89 fL (80-94); Mean Platelet Volume 8.1 fL (7.4-10.4); Nucleated Red Blood Cells % 0.1; Platelet Count 429 10^3/uL (150-450); Red Blood Count 2.93 10^6 /uL (4.18-5.48); Red Cell Distribution Width 18 % (10-15); White Blood Count 10.8 10^3/uL (3.5-10.8)
[2021-09-06 07:55] LABS: Activated Partial Thrombo Time 43.9 seconds (26.0-38.0); INR 3.16 (0.86-1.15)
[2021-09-06 08:04] LABS: ALT 33 U/L (7-52); AST 21 U/L (13-39); Albumin 2.7 g/dL (3.2-5.2); Albumin/Globulin Ratio 0.5 (1-3); Alkaline Phosphatase 136 U/L (35-149); Anion Gap 5 mmol/L (2-11); Blood Urea Nitrogen 48 mg/dL (6-24); C Reactive Protein 116.73 mg/L (<8.01); CO2 Carbon Dioxide 27 mmol/L (22-32); Calcium 8.4 mg/dL (8.6-10.3); Chloride 107 mmol/L (101-111); Creatine Kinase 47 U/L (10-223); Glucose 198 mg/dL (70-100); Potassium 4.7 mmol/L (3.5-5.0); Sodium 139 mmol/L (135-145); Total Protein 7.7 g/dL (6.4-8.9)
[2021-09-06 08:08] LABS: Troponin I 0.04 ng/mL (<0.03)
[2021-09-06] MEDS ORDERED: Vancomycin 1,500 MG in NS 0.9% 250 ml 250 ML IVPB ONE (08:50)
[2021-09-06] MEDS ORDERED: Furosemide 40 mg/4 ml IV VIAL IV ONE (08:56)
[2021-09-06] MEDS ORDERED: NS 0.9% 250 ml 250 ML ONE (09:04)
[2021-09-06 11:08] LABS: Urine Appearance Clear; Urine Bilirubin Negative (Negative); Urine Blood Negative (Negative); Urine Color Yellow; Urine Glucose Negative (Negative); Urine Ketones Negative (Negative); Urine Nitrite Negative (Negative); Urine Protein Negative (Negative); Urine Urobilinogen Negative (Negative)
[2021-09-06 11:23] LABS: Urine Bacteria 1+ (Absent); Urine Red Blood Cell Trace(0-2/hpf) (Absent); Urine White Blood Cell Trace(0-5/hpf) (Absent)
[2021-09-06 11:36] LABS: Rapid COVID-19 Molecular Undetected (Undetected)
[2021-09-06] MEDS ORDERED: Dextran 70/Hypromellose Tears Eye Drops 15 ml BTL (for Artificials Tears) BOTH EYES PRN (12:40)
[2021-09-06] MEDS ORDERED: Dextrose 50% Syringe 50 ml 25 GM/50 ML SYRINGE IV PUSH PRN (12:42)
[2021-09-06 12:48] LABS: Troponin I 0.03 ng/mL (<0.03)
[2021-09-06 13:04] LABS: % Iron Saturation 21 % (15-55); Iron 41 ug/dL (50-212); Total Iron Binding Capacity 200 mcg/dL (250-450); Transferrin 143 mg/dL (203-362); Unsaturated Iron Binding < 185 ug/dL
[2021-09-06 13:25] LABS: Ferritin 22.7 ng/mL (24-336)
[2021-09-06 13:29] LABS: Folate 12.85 ng/mL (5.90-24.80)
[2021-09-06 13:30] LABS: Vitamin B12 1308 pg/mL (180-914)
[2021-09-06] MEDS ORDERED: Insulin GLARGINE 100 un/ml 10 ml VIAL SUBCUT ONE (14:21)
[2021-09-06] MEDS: cefTRIAXone 1 gm/50 mL NS BAG 1 GM/50 ML BAG IVPB SCH (17:22)
[2021-09-06] MEDS: Furosemide 40 mg/4 ml IV VIAL IV SLOW PU SCH (17:23)
[2021-09-06] MEDS: Nystatin TOP POWDER 15 GM BTL TOPICAL SCH (20:59)
[2021-09-06] MEDS: Collagenase 250 units/gm OINT 1 tube TOPICAL SCH (20:59)
[2021-09-07] MEDS ORDERED: Insulin GLARGINE 100 un/ml 10 ml VIAL SUBCUT SCH (09:00)
[2021-09-07] MEDS ORDERED: Warfarin per PHARMACY **NOTE FOLLOW UP SCH (09:00)
[2021-09-07] MEDS: Furosemide 40 mg/4 ml IV VIAL IV SLOW PU SCH (09:51)
[2021-09-07] MEDS: Nystatin TOP POWDER 15 GM BTL TOPICAL SCH ×2 (09:52→22:20)
[2021-09-07 10:57] LABS: Hematocrit 27 % (42-52); Hemoglobin 8.5 g/dL (14.0-18.0); Mean Corpuscular HGB Conc 32 g/dL (31-36); Mean Corpuscular Hemoglobin 28 pg (27-31); Mean Corpuscular Volume 88 fL (80-94); Platelet Count 430 10^3/uL (150-450); Red Cell Distribution Width 18 % (10-15); White Blood Count 9.3 10^3/uL (3.5-10.8)
[2021-09-07 11:03] LABS: INR 3.43 (0.86-1.15)
[2021-09-07 11:13] LABS: Calcium 8.3 mg/dL (8.6-10.3); Potassium 4.4 mmol/L (3.5-5.0)
[2021-09-07 11:21] LABS: ABS Basophils 0.1 10^3/ul (0-0.2); ABS Eosinophils 0.4 10^3/ul (0-0.6); ABS Lymphocytes 0.9 10^3/ul (1.0-4.8); ABS Monocytes 0.7 10^3/ul (0-0.8); ABS Neutrophils 7.2 10^3/ul (1.5-7.7); Eosinophil % 4.7 %; Lymphocyte % 9.6 %; Nucleated Red Blood Cells % 0.1
[2021-09-07] MEDS: Collagenase 250 units/gm OINT 1 tube TOPICAL SCH (15:25)
[2021-09-07] MEDS ORDERED: Warfarin - No Order Today **NOTE FOLLOW UP ONE (17:00)
[2021-09-07] MEDS: cefTRIAXone 1 gm/50 mL NS BAG 1 GM/50 ML BAG IVPB SCH (18:18)
[2021-09-08] MEDS: Collagenase 250 units/gm OINT 1 tube TOPICAL SCH ×2 (06:30→09:32)
[2021-09-08 07:42] LABS: Hematocrit 26 % (42-52); Hemoglobin 8.4 g/dL (14.0-18.0); Mean Corpuscular HGB Conc 32 g/dL (31-36); Mean Corpuscular Hemoglobin 29 pg (27-31); Mean Corpuscular Volume 88 fL (80-94); Mean Platelet Volume 7.9 fL (7.4-10.4); Platelet Count 436 10^3/uL (150-450); Red Blood Count 2.93 10^6 /uL (4.18-5.48); Red Cell Distribution Width 18 % (10-15); White Blood Count 9.3 10^3/uL (3.5-10.8)
[2021-09-08 07:48] LABS: INR 3.17 (0.86-1.15)
[2021-09-08 08:03] LABS: ABS Basophils 0.1 10^3/ul (0-0.2); ABS Eosinophils 0.4 10^3/ul (0-0.6); ABS Lymphocytes 1.1 10^3/ul (1.0-4.8); ABS Monocytes 0.8 10^3/ul (0-0.8); ABS Neutrophils 6.9 10^3/ul (1.5-7.7); Eosinophil % 4.5 %; Nucleated Red Blood Cells % 0.1
[2021-09-08 08:05] LABS: Calcium 8.1 mg/dL (8.6-10.3); Potassium 4.4 mmol/L (3.5-5.0)
[2021-09-08] MEDS ORDERED: Insulin GLARGINE 100 un/ml 10 ml VIAL SUBCUT SCH (09:00)
[2021-09-08] MEDS: Nystatin TOP POWDER 15 GM BTL TOPICAL SCH ×2 (09:33→20:42)
[2021-09-08] MEDS ORDERED: Warfarin - No Order Today **NOTE FOLLOW UP ONE (17:00)
[2021-09-08] MEDS: cefTRIAXone 1 gm/50 mL NS BAG 1 GM/50 ML BAG IVPB SCH (17:03)
[2021-09-09 06:43] LABS: ABS Basophils 0.1 10^3/ul (0-0.2); ABS Eosinophils 0.4 10^3/ul (0-0.6); ABS Monocytes 0.6 10^3/ul (0-0.8); Eosinophil % 3.9 %; Hematocrit 26 % (42-52); Hemoglobin 8.5 g/dL (14.0-18.0); Lymphocyte % 11.2 %; Mean Corpuscular HGB Conc 32 g/dL (31-36); Mean Corpuscular Hemoglobin 29 pg (27-31); Mean Corpuscular Volume 89 fL (80-94); Mean Platelet Volume 7.8 fL (7.4-10.4); Platelet Count 442 10^3/uL (150-450); Red Blood Count 2.98 10^6 /uL (4.18-5.48); Red Cell Distribution Width 18 % (10-15)
[2021-09-09 06:46] LABS: INR 2.85 (0.86-1.15)
[2021-09-09 07:08] LABS: Calcium 8.1 mg/dL (8.6-10.3); Potassium 4.5 mmol/L (3.5-5.0)
[2021-09-09] MEDS: Insulin GLARGINE 100 un/ml 10 ml VIAL SUBCUT SCH (09:32)
[2021-09-09] MEDS: Collagenase 250 units/gm OINT 1 tube TOPICAL SCH (09:33)
[2021-09-09] MEDS: Nystatin TOP POWDER 15 GM BTL TOPICAL SCH ×2 (09:33→21:18)
[2021-09-09] MEDS ORDERED: NS 0.9% 1000 ml BAG 1,000 ML IV SCH (13:45)
[2021-09-09 14:03] LABS: C Reactive Protein 36.53 mg/L (<8.01)
[2021-09-09] MEDS ORDERED: Iodixanol (CONTRAST) 320 MG/ML 100 ML SDV IV ONE (14:16)
[2021-09-09] MEDS: cefTRIAXone 1 gm/50 mL NS BAG 1 GM/50 ML BAG IVPB SCH (18:00)
[2021-09-10 05:48] LABS: INR 2.76 (0.86-1.15)
[2021-09-10 08:05] LABS: Calcium 8.1 mg/dL (8.6-10.3); Potassium 4.4 mmol/L (3.5-5.0)
[2021-09-10] MEDS: Insulin GLARGINE 100 un/ml 10 ml VIAL SUBCUT SCH (08:48)
[2021-09-10] MEDS: Collagenase 250 units/gm OINT 1 tube TOPICAL SCH (13:45)
[2021-09-10] MEDS: Nystatin TOP POWDER 15 GM BTL TOPICAL SCH ×2 (13:45→20:20)
[2021-09-10] MEDS ORDERED: Collagenase 250 units/gm OINT 1 tube TOPICAL SCH (17:01)
[2021-09-10] MEDS: cefTRIAXone 1 gm/50 mL NS BAG 1 GM/50 ML BAG IVPB SCH (17:50)
[2021-09-11 06:10] LABS: C Reactive Protein 93.73 mg/L (<8.01); Calcium 8.1 mg/dL (8.6-10.3); Potassium 4.2 mmol/L (3.5-5.0)
[2021-09-11 06:41] LABS: INR 3.03 (0.86-1.15)
[2021-09-11] MEDS ORDERED: Insulin GLARGINE 100 un/ml 10 ml VIAL SUBCUT SCH (09:00)
[2021-09-11] MEDS: Nystatin TOP POWDER 15 GM BTL TOPICAL SCH (11:51)
[2021-09-11 12:28] VITALS: BP 118/59
== END 2021-09-11 14:35 | disposition home or self-care (01) | DRG 602 ==
LOC: ED 06:41 → EDHOLD 10:24 → SUATTDRO 10:24 → MED 12:19
PROVIDERS: ADMIT Internal Medicine; ATTEND Internal Medicine

== ENCOUNTER 2023-03-28 16:59 | Inpatient (IN) ==
[2023-03-28] MEDS ORDERED: NS 0.9% 1000 ml BAG 1,000 ML IV ONE (18:15)
[2023-03-28] MEDS ORDERED: Morphine 4 MG/ML VIAL (1 ml) IV ONE ×2 (18:15→20:20)
[2023-03-28 18:47] LABS: ABS Basophils 0.1 10^3/uL (0.0-0.1); ABS Eosinophils 0.3 10^3/uL (0.0-0.5); ABS Lymphocytes 1.1 10^3/uL (1.0-4.8); ABS Monocytes 1.1 10^3/uL (0.0-1.1); ABS Neutrophils 12.1 10^3/uL (1.5-7.6); ABS Nucleated RBC 0.01 10^3/ul; Eosinophil % 2.3 %; Hemoglobin 9.2 g/dL (13.2-16.3); Lymphocyte % 7.5 %; Mean Corpuscular Hemoglobin 31.7 pg (27-33); Mean Corpuscular Hgb Conc 32.9 g/dL (31-36); Mean Corpuscular Volume 96.3 fL (80-97); Nucleated Red Blood Cells % 0.1 /100 WBC (0.0-0.4); Platelet Count 329 10^3/uL (150-450); Red Cell Distribution Width 14.8 % (12-17); White Blood Count 14.8 10^3/uL (3.6-10.2)
[2023-03-28 19:11] LABS: Albumin/Globulin Ratio 0.9 (1-3); Calcium 8.4 mg/dL (8.6-10.3); Creatinine, Serum 2.23 mg/dL (0.67-1.17); Globulin 3.3 g/dL (2-4); Magnesium 2.2 mg/dL (1.9-2.7); Potassium 4.4 mmol/L (3.5-5.0); Total Bilirubin 0.7 mg/dL (0.2-1.0); Total Protein 6.3 g/dL (6.4-8.9); eGFR CKD-EPI 29.2 (>60)
[2023-03-28] MEDS ORDERED: Polyethylene Glycol 3350 17 GM PACKET PO PRN (22:33)
[2023-03-28] MEDS ORDERED: Al Hydrox/Mg Hydrox/Simet LIQ 30 ML UDC PO PRN (22:33)
[2023-03-28] MEDS ORDERED: Ondansetron 4 mg VIAL 2 MG/ML 2 ml VIAL IV PRN (22:33)
[2023-03-28] MEDS ORDERED: Magnesium Hydroxide LIQ 30 ML UDC PO PRN (22:33)
[2023-03-28] MEDS ORDERED: Senna TAB 8.6 mg TAB PO PRN (22:33)
[2023-03-28] MEDS ORDERED: Heparin 5000 UNITS/ML 1 mL VIAL IV SCH (23:45)
[2023-03-29 01:16] LABS: Urine Appearance Cloudy; Urine Bilirubin Negative (Negative); Urine Blood Negative (Negative); Urine Color Yellow; Urine Glucose 3+(>=500 mg/dL) (Negative); Urine Ketones Negative (Negative); Urine Nitrite Negative (Negative); Urine Protein 1+(30 mg/dL) (Negative); Urine Specific Gravity 1.018 (1.002-1.030); Urine Urobilinogen Negative (Negative)
[2023-03-29 01:19] LABS: Urine Bacteria 1+ (Absent); Urine Red Blood Cell Trace(0-2/hpf) (Absent); Urine Squamous Epithelial Cell Present (Absent); Urine White Blood Cell Trace(0-5/hpf) (Absent); Urine Yeast Present (Absent)
[2023-03-29 01:56] LABS: Creatinine, Serum 2.1 mg/dL (0.67-1.17); eGFR CKD-EPI 31.4 (>60)
[2023-03-29] MEDS ORDERED: Heparin DRIP 25,000 UNITS BAG 25,000 UNITS/500 ML BAG IV SCH (06:00)
[2023-03-29] MEDS ORDERED: Lactated Ringers 1000 ml BAG 1,000 ML IV ONE (06:01)
[2023-03-29 06:03] LABS: ABS Basophils 0.1 10^3/uL (0.0-0.1); ABS Eosinophils 0.5 10^3/uL (0.0-0.5); ABS Lymphocytes 1.3 10^3/uL (1.0-4.8); ABS Neutrophils 8.5 10^3/uL (1.5-7.6); ABS Nucleated RBC 0.01 10^3/ul; Eosinophil % 4.3 %; Hematocrit 24.7 % (38-53); Hemoglobin 8.2 g/dL (13.2-16.3); Lymphocyte % 11.4 %; Mean Corpuscular Hemoglobin 31.8 pg (27-33); Mean Corpuscular Hgb Conc 33.3 g/dL (31-36); Mean Corpuscular Volume 95.4 fL (80-97); Mean Platelet Volume 7.9 fL (7.5-11.2); Nucleated Red Blood Cells % 0.1 /100 WBC (0.0-0.4); Platelet Count 272 10^3/uL (150-450); Red Blood Count 2.58 10^6/uL (4.06-5.63); White Blood Count 11.3 10^3/uL (3.6-10.2)
[2023-03-29 06:36] LABS: Calcium 7.9 mg/dL (8.6-10.3); Magnesium 2.2 mg/dL (1.9-2.7); Potassium 4.2 mmol/L (3.5-5.0)
[2023-03-29 06:41] LABS: Creatinine, Serum 1.95 mg/dL (0.67-1.17); eGFR CKD-EPI 34.4 (>60)
[2023-03-29] MEDS ORDERED: Heparin 5000 UNITS/ML 1 mL VIAL SUBCUT ONE (09:00)
[2023-03-29] MEDS ORDERED: Dextrose 50% Syringe 50 ml 25 GM/50 ML SYRINGE IV PUSH PRN (12:00)
[2023-03-29] MEDS ORDERED: Heparin 5000 UNITS/ML 1 mL VIAL SUBCUT SCH (21:00)
[2023-03-30 08:31] LABS: Calcium 8.1 mg/dL (8.6-10.3); Creatinine, Serum 1.74 mg/dL (0.67-1.17); Potassium 4.4 mmol/L (3.5-5.0); eGFR CKD-EPI 39.4 (>60)
[2023-03-30] MEDS: Lidocaine PATCH 5% PATCH TRANSDERM SCH (12:51)
[2023-03-31 06:18] LABS: Creatinine, Serum 1.62 mg/dL (0.67-1.17); Potassium 4.6 mmol/L (3.5-5.0); eGFR CKD-EPI 42.9 (>60)
[2023-03-31] MEDS: Lidocaine PATCH 5% PATCH TRANSDERM SCH (08:46)
[2023-03-31] MEDS ORDERED: Senna TAB 8.6 mg TAB PO SCH (09:00)
[2023-03-31 10:58] VITALS: BP 120/70
== END 2023-03-31 12:52 | DRG 536 ==
LOC: ED 16:59 → EDHOLD 16:59 → SUATTDRO 22:33 → SSU 03-29 09:31
PROVIDERS: ADMIT Hospitalist; ATTEND Internal Medicine

== ENCOUNTER 2023-06-11 15:56 | Inpatient (IN) ==
[2023-06-11 17:29] LABS: ABS Eosinophils 0.4 10^3/uL (0.0-0.5); ABS Lymphocytes 0.5 10^3/uL (1.0-4.8); ABS Monocytes 0.5 10^3/uL (0.0-1.1); Eosinophil % 3.3 %; Hemoglobin 8.9 g/dL (13.2-16.3); Lymphocyte % 4.4 %; Mean Corpuscular Hemoglobin 30.8 pg (27-33); Mean Corpuscular Hgb Conc 31.9 g/dL (31-36); Mean Corpuscular Volume 96.6 fL (80-97); Mean Platelet Volume 7.7 fL (7.5-11.2); Platelet Count 427 10^3/uL (150-450); Red Cell Distribution Width 15.6 % (12-17); White Blood Count 12.4 10^3/uL (3.6-10.2)
[2023-06-11 17:41] LABS: Activated Partial Thrombo Time 32.8 seconds (26.0-38.0); INR 1.21 (0.88-1.18)
[2023-06-11 17:43] LABS: Calcium 8.8 mg/dL (8.6-10.3); Creatinine, Serum 1.5 mg/dL (0.67-1.17); Globulin 4.8 g/dL (2-4); Potassium 4.5 mmol/L (3.5-5.0); Total Protein 7.8 g/dL (6.4-8.9); eGFR CKD-EPI 47.1 (>60)
[2023-06-11 17:44] LABS: Albumin/Globulin Ratio 0.6 (1-3); C Reactive Protein 183.98 mg/L (<8.01); Total Bilirubin 0.5 mg/dL (0.2-1.0)
[2023-06-11] MEDS ORDERED: Piperacillin/Tazobac 3.375 BAG 3.375 GM/100 ML BAG IV ONE (18:28)
[2023-06-11] MEDS ORDERED: Vancomycin 1,500 MG in NS 0.9% 250 ml 250 ML IVPB ONE (18:28)
[2023-06-11] MEDS ORDERED: Ondansetron 4 mg VIAL 2 MG/ML 2 ml VIAL IV ONE (18:32)
[2023-06-11] MEDS ORDERED: Morphine 4 MG/ML VIAL (1 ml) IV ONE (18:32)
[2023-06-11] MEDS ORDERED: Lactated Ringers 1000 ml BAG 1,000 ML IV ONE (18:48)
[2023-06-11 18:58] LABS: High Sensitivity Troponin 1 Hr 24 pg/mL (<20)
[2023-06-11] MEDS ORDERED: Senna TAB 8.6 mg TAB PO PRN ×2 (19:13→19:23)
[2023-06-11] MEDS ORDERED: Polyethylene Glycol 3350 17 GM PACKET PO PRN ×2 (19:13→19:23)
[2023-06-11] MEDS ORDERED: Al Hydrox/Mg Hydrox/Simet LIQ 30 ML UDC PO PRN (19:13)
[2023-06-11] MEDS ORDERED: Ondansetron 4 mg VIAL 2 MG/ML 2 ml VIAL IV PRN (19:13)
[2023-06-11] MEDS ORDERED: cefTRIAXone 2 gm/50 mL D5W 2 GM/50 ML BAG IV SCH (20:00)
[2023-06-11] MEDS ORDERED: Vancomycin per Pharmacy 1 EA NOTE FOLLOW UP SCH (20:00)
[2023-06-11] MEDS: Triamcinolone 0.025% OINT 15 GM TUBE TOPICAL SCH (22:55)
[2023-06-12] MEDS: CEFEPIME 2 GM in Dextrose 50 mL IV SCH ×2 (01:39→14:32)
[2023-06-12] MEDS ORDERED: Lactated Ringers 1000 ml BAG 1,000 ML IV ONE (01:41)
[2023-06-12] MEDS ORDERED: Dextrose 50% Syringe 50 ml 25 GM/50 ML SYRINGE IV PUSH PRN (06:25)
[2023-06-12] MEDS ORDERED: Enoxaparin 100 MG/ML SYR SUBCUT SCH (08:00)
[2023-06-12 09:39] LABS: ABS Basophils 0.1 10^3/uL (0.0-0.1); ABS Eosinophils 0.5 10^3/uL (0.0-0.5); ABS Lymphocytes 0.6 10^3/uL (1.0-4.8); ABS Monocytes 0.6 10^3/uL (0.0-1.1); ABS Neutrophils 7.5 10^3/uL (1.5-7.6); Eosinophil % 5.3 %; Hematocrit 26.3 % (38-53); Hemoglobin 8.4 g/dL (13.2-16.3); Lymphocyte % 6.4 %; Mean Corpuscular Hemoglobin 31.5 pg (27-33); Mean Corpuscular Hgb Conc 31.8 g/dL (31-36); Mean Corpuscular Volume 99.1 fL (80-97); Platelet Count 332 10^3/uL (150-450); Red Blood Count 2.65 10^6/uL (4.06-5.63); Red Cell Distribution Width 16.1 % (12-17); White Blood Count 9.2 10^3/uL (3.6-10.2)
[2023-06-12 09:55] LABS: Calcium 8.1 mg/dL (8.6-10.3); Magnesium 1.9 mg/dL (1.9-2.7); Potassium 4.4 mmol/L (3.5-5.0)
[2023-06-12 10:01] LABS: Creatinine, Serum 1.57 mg/dL (0.67-1.17); eGFR CKD-EPI 44.6 (>60)
[2023-06-12] MEDS: Insulin GLARGINE 100 un/ml 10 ml VIAL SUBCUT SCH (10:02)
[2023-06-12] MEDS: DULoxetine DR 60 mg CAP PO SCH (10:03)
[2023-06-12] MEDS: Triamcinolone 0.025% OINT 15 GM TUBE TOPICAL SCH ×2 (10:58→21:02)
[2023-06-12] MEDS: Acetaminophen IV 1 GM/100ML 1,000 MG/100 ML BAG IV PRN (18:04)
[2023-06-12] MEDS: Vancomycin 1,250 MG in NS 0.9% 250 ml 250 ML IVPB SCH (21:03)
[2023-06-12] MEDS: Enoxaparin 100 MG/ML SYR SUBCUT SCH (21:03)
[2023-06-13] MEDS: CEFEPIME 2 GM in Dextrose 50 mL IV SCH ×2 (01:05→13:03)
[2023-06-13 08:15] LABS: Hematocrit 22.9 % (38-53); Hemoglobin 7.6 g/dL (13.2-16.3); Mean Corpuscular Hemoglobin 32.3 pg (27-33); Mean Corpuscular Hgb Conc 33.4 g/dL (31-36); Mean Corpuscular Volume 96.8 fL (80-97); Mean Platelet Volume 8.3 fL (7.5-11.2); Platelet Count 245 10^3/uL (150-450); Red Blood Count 2.36 10^6/uL (4.06-5.63); Red Cell Distribution Width 15.6 % (12-17); White Blood Count 7.4 10^3/uL (3.6-10.2)
[2023-06-13 08:34] LABS: Calcium 7.9 mg/dL (8.6-10.3); Creatinine, Serum 1.76 mg/dL (0.67-1.17); Magnesium 1.9 mg/dL (1.9-2.7); Potassium 4.4 mmol/L (3.5-5.0); eGFR CKD-EPI 38.8 (>60)
[2023-06-13] MEDS: DULoxetine DR 60 mg CAP PO SCH (09:34)
[2023-06-13] MEDS: Enoxaparin 100 MG/ML SYR SUBCUT SCH ×2 (09:34→22:42)
[2023-06-13] MEDS: Insulin GLARGINE 100 un/ml 10 ml VIAL SUBCUT SCH (09:37)
[2023-06-13 10:56] LABS: ABS Basophils 0.1 10^3/uL (0.0-0.1); ABS Eosinophils 0.8 10^3/uL (0.0-0.5); ABS Lymphocytes 0.6 10^3/uL (1.0-4.8); ABS Monocytes 0.7 10^3/uL (0.0-1.1); ABS Neutrophils 5.2 10^3/uL (1.5-7.6); Eosinophil % 10.8 %; Lymphocyte % 8.1 %; Nucleated Red Blood Cells % 0.1 /100 WBC (0.0-0.4); RBC Morphology Normal (Normal)
[2023-06-13] MEDS: Triamcinolone 0.025% OINT 15 GM TUBE TOPICAL SCH ×2 (11:06→22:13)
[2023-06-13] MEDS: Acetaminophen IV 1 GM/100ML 1,000 MG/100 ML BAG IV PRN (14:20)
[2023-06-13] MEDS: Vancomycin 1,250 MG in NS 0.9% 250 ml 250 ML IVPB SCH (22:42)
[2023-06-14] MEDS: Acetaminophen IV 1 GM/100ML 1,000 MG/100 ML BAG IV PRN (00:39)
[2023-06-14] MEDS: CEFEPIME 2 GM in Dextrose 50 mL IV SCH ×2 (00:56→13:39)
[2023-06-14] MEDS: Nystatin TOP POWDER 15 GM BTL TOPICAL SCH ×4 (04:57→21:32)
[2023-06-14 05:44] LABS: ABS Eosinophils 0.8 10^3/uL (0.0-0.5); ABS Lymphocytes 0.7 10^3/uL (1.0-4.8); ABS Monocytes 0.7 10^3/uL (0.0-1.1); ABS Neutrophils 4.7 10^3/uL (1.5-7.6); Eosinophil % 11.7 %; Hematocrit 22.8 % (38-53); Hemoglobin 7.5 g/dL (13.2-16.3); Mean Corpuscular Hemoglobin 31.6 pg (27-33); Mean Corpuscular Hgb Conc 32.8 g/dL (31-36); Mean Corpuscular Volume 96.5 fL (80-97); Platelet Count 301 10^3/uL (150-450); Red Blood Count 2.37 10^6/uL (4.06-5.63); Red Cell Distribution Width 15.3 % (12-17)
[2023-06-14 06:04] LABS: Calcium 7.6 mg/dL (8.6-10.3); Creatinine, Serum 1.94 mg/dL (0.67-1.17); Potassium 4.2 mmol/L (3.5-5.0); eGFR CKD-EPI 34.6 (>60)
[2023-06-14] MEDS ORDERED: Lactated Ringers 1000 ml BAG 1,000 ML IV ONE (07:29)
[2023-06-14 10:15] LABS: Ferritin 456.6 ng/mL (24-336)
[2023-06-14] MEDS: Enoxaparin 100 MG/ML SYR SUBCUT SCH ×2 (10:19→21:30)
[2023-06-14] MEDS: DULoxetine DR 60 mg CAP PO SCH (10:20)
[2023-06-14] MEDS: Insulin GLARGINE 100 un/ml 10 ml VIAL SUBCUT SCH (10:20)
[2023-06-14] MEDS: Triamcinolone 0.025% OINT 15 GM TUBE TOPICAL SCH ×2 (10:21→21:16)
[2023-06-14] MEDS: Morphine 2 MG/ML SYRINGE IV PRN ×2 (16:23→21:30)
[2023-06-14] MEDS ORDERED: Vancomycin Trough Check NOTE FOLLOW UP ONE (20:30)
[2023-06-14] MEDS: Vancomycin 1,250 MG in NS 0.9% 250 ml 250 ML IVPB SCH (21:32)
[2023-06-14 21:45] LABS: Folate 9.09 ng/mL (5.90-24.80)
[2023-06-15] MEDS: Cefepime 1 GM in Dextrose 1 GM/50 ML BAG IV SCH ×2 (00:08→14:18)
[2023-06-15 06:01] LABS: ABS Basophils 0.1 10^3/uL (0.0-0.1); ABS Eosinophils 0.8 10^3/uL (0.0-0.5); ABS Monocytes 0.7 10^3/uL (0.0-1.1); ABS Neutrophils 6.5 10^3/uL (1.5-7.6); ABS Nucleated RBC 0.01 10^3/ul; Eosinophil % 8.9 %; Hemoglobin 7.7 g/dL (13.2-16.3); Mean Corpuscular Hemoglobin 31.7 pg (27-33); Mean Corpuscular Hgb Conc 33.3 g/dL (31-36); Mean Corpuscular Volume 95.3 fL (80-97); Mean Platelet Volume 7.8 fL (7.5-11.2); Nucleated Red Blood Cells % 0.1 /100 WBC (0.0-0.4); Platelet Count 354 10^3/uL (150-450); Red Blood Count 2.42 10^6/uL (4.06-5.63); Red Cell Distribution Width 15.3 % (12-17); White Blood Count 9.1 10^3/uL (3.6-10.2)
[2023-06-15 06:22] LABS: Calcium 7.6 mg/dL (8.6-10.3); Creatinine, Serum 1.7 mg/dL (0.67-1.17); Potassium 4.3 mmol/L (3.5-5.0); eGFR CKD-EPI 40.5 (>60)
[2023-06-15] MEDS: Triamcinolone 0.025% OINT 15 GM TUBE TOPICAL SCH ×2 (09:21→20:37)
[2023-06-15] MEDS: Insulin GLARGINE 100 un/ml 10 ml VIAL SUBCUT SCH (10:06)
[2023-06-15] MEDS: DULoxetine DR 60 mg CAP PO SCH (10:06)
[2023-06-15] MEDS: Polyethylene Glycol 3350 17 GM PACKET PO SCH (10:06)
[2023-06-15] MEDS: Enoxaparin 100 MG/ML SYR SUBCUT SCH ×2 (10:06→20:25)
[2023-06-15] MEDS: Nystatin TOP POWDER 15 GM BTL TOPICAL SCH ×3 (10:07→20:25)
[2023-06-15 10:38] LABS: C Reactive Protein 81.81 mg/L (<8.01)
[2023-06-15] MEDS: Vancomycin 1,250 MG in NS 0.9% 250 ml 250 ML IVPB SCH (20:23)
[2023-06-16] MEDS: Cefepime 1 GM in Dextrose 1 GM/50 ML BAG IV SCH ×2 (01:02→14:14)
[2023-06-16 06:15] LABS: ABS Basophils 0.1 10^3/uL (0.0-0.1); ABS Eosinophils 0.9 10^3/uL (0.0-0.5); ABS Lymphocytes 1.4 10^3/uL (1.0-4.8); ABS Monocytes 0.9 10^3/uL (0.0-1.1); ABS Neutrophils 6.1 10^3/uL (1.5-7.6); Eosinophil % 9.3 %; Hematocrit 23.2 % (38-53); Hemoglobin 7.7 g/dL (13.2-16.3); Lymphocyte % 14.9 %; Mean Corpuscular Hemoglobin 31.6 pg (27-33); Mean Corpuscular Volume 95.8 fL (80-97); Mean Platelet Volume 7.9 fL (7.5-11.2); Platelet Count 348 10^3/uL (150-450); Red Blood Count 2.42 10^6/uL (4.06-5.63); Red Cell Distribution Width 15.7 % (12-17); White Blood Count 9.3 10^3/uL (3.6-10.2)
[2023-06-16 06:32] LABS: Calcium 7.8 mg/dL (8.6-10.3); Creatinine, Serum 1.63 mg/dL (0.67-1.17); Potassium 4.1 mmol/L (3.5-5.0); eGFR CKD-EPI 42.6 (>60)
[2023-06-16] MEDS: Insulin GLARGINE 100 un/ml 10 ml VIAL SUBCUT SCH (09:20)
[2023-06-16] MEDS: Polyethylene Glycol 3350 17 GM PACKET PO SCH (09:20)
[2023-06-16] MEDS: Enoxaparin 100 MG/ML SYR SUBCUT SCH ×2 (09:20→22:02)
[2023-06-16] MEDS: DULoxetine DR 60 mg CAP PO SCH (09:20)
[2023-06-16] MEDS: Nystatin TOP POWDER 15 GM BTL TOPICAL SCH ×3 (09:21→22:04)
[2023-06-16] MEDS: Triamcinolone 0.025% OINT 15 GM TUBE TOPICAL SCH ×2 (09:22→22:04)
[2023-06-16] MEDS: Vancomycin 1,250 MG in NS 0.9% 250 ml 250 ML IVPB SCH (21:57)
[2023-06-17] MEDS: Morphine 2 MG/ML SYRINGE IV PRN (01:45)
[2023-06-17] MEDS ORDERED: cefTRIAXone 1 gm/50 mL D5W 1 GM/50 ML BAG IV SCH (06:00)
[2023-06-17 06:19] LABS: ABS Basophils 0.1 10^3/uL (0.0-0.1); ABS Eosinophils 0.7 10^3/uL (0.0-0.5); ABS Lymphocytes 1.8 10^3/uL (1.0-4.8); ABS Monocytes 0.8 10^3/uL (0.0-1.1); ABS Neutrophils 6.2 10^3/uL (1.5-7.6); ABS Nucleated RBC 0.01 10^3/ul; Eosinophil % 7.8 %; Hematocrit 22.8 % (38-53); Hemoglobin 7.6 g/dL (13.2-16.3); Lymphocyte % 18.7 %; Mean Corpuscular Hemoglobin 31.9 pg (27-33); Mean Corpuscular Hgb Conc 33.3 g/dL (31-36); Mean Corpuscular Volume 95.8 fL (80-97); Mean Platelet Volume 7.7 fL (7.5-11.2); Nucleated Red Blood Cells % 0.1 /100 WBC (0.0-0.4); Platelet Count 344 10^3/uL (150-450); Red Blood Count 2.37 10^6/uL (4.06-5.63); Red Cell Distribution Width 15.8 % (12-17); White Blood Count 9.6 10^3/uL (3.6-10.2)
[2023-06-17 06:34] LABS: Calcium 7.6 mg/dL (8.6-10.3); Creatinine, Serum 1.68 mg/dL (0.67-1.17); Potassium 4.5 mmol/L (3.5-5.0); eGFR CKD-EPI 41.1 (>60)
[2023-06-17] MEDS: Enoxaparin 100 MG/ML SYR SUBCUT SCH ×2 (10:33→20:19)
[2023-06-17] MEDS: Polyethylene Glycol 3350 17 GM PACKET PO SCH (10:35)
[2023-06-17] MEDS: Triamcinolone 0.025% OINT 15 GM TUBE TOPICAL SCH ×2 (10:35→20:20)
[2023-06-17] MEDS: Nystatin TOP POWDER 15 GM BTL TOPICAL SCH ×3 (10:35→20:20)
[2023-06-17] MEDS ORDERED: Vancomycin 1,250 MG in NS 0.9% 250 ml 250 ML IVPB SCH (11:00)
[2023-06-17] MEDS ORDERED: Famotidine IV 10 MG/ML 2 ml VIAL (20 mg) ONE (13:13)
[2023-06-17] MEDS ORDERED: Famotidine IV 10 MG/ML 2 ml VIAL (20 mg) IV SLOW PU ONE (13:14)
[2023-06-17] MEDS ORDERED: Ondansetron 4 mg VIAL 2 MG/ML 2 ml VIAL ONE (13:15)
[2023-06-17] MEDS ORDERED: Dexamethasone IV 4 MG/ML VIAL 1 ml VIAL ONE (13:15)
[2023-06-17] MEDS ORDERED: fentaNYL 100 mcg/2 ml 50 MCG/ML VIAL ONE (13:15)
[2023-06-17] MEDS ORDERED: Lidocaine 2% PF 5 ML VIAL ONE (13:15)
[2023-06-17] MEDS ORDERED: Propofol 10 MG/ML 20 ML BTL ONE ×2 (13:15→14:09)
[2023-06-17] MEDS ORDERED: Midazolam 2 mg/2 ml VIAL 1 mg/ml 2 ml VIAL (2 mg) ONE (13:15)
[2023-06-17] MEDS: Insulin GLARGINE 100 un/ml 10 ml VIAL SUBCUT SCH (16:37)
[2023-06-17] MEDS: DULoxetine DR 60 mg CAP PO SCH (17:27)
[2023-06-18 06:47] LABS: ABS Basophils 0.1 10^3/uL (0.0-0.1); ABS Eosinophils 0.9 10^3/uL (0.0-0.5); ABS Lymphocytes 1.2 10^3/uL (1.0-4.8); ABS Monocytes 0.9 10^3/uL (0.0-1.1); ABS Neutrophils 7.3 10^3/uL (1.5-7.6); Eosinophil % 8.3 %; Hematocrit 23.5 % (38-53); Hemoglobin 7.8 g/dL (13.2-16.3); Lymphocyte % 11.9 %; Mean Corpuscular Hemoglobin 31.7 pg (27-33); Mean Corpuscular Hgb Conc 33.1 g/dL (31-36); Mean Corpuscular Volume 95.6 fL (80-97); Platelet Count 387 10^3/uL (150-450); Red Blood Count 2.46 10^6/uL (4.06-5.63); Red Cell Distribution Width 15.4 % (12-17); White Blood Count 10.4 10^3/uL (3.6-10.2)
[2023-06-18 07:01] LABS: Calcium 7.9 mg/dL (8.6-10.3); Creatinine, Serum 1.73 mg/dL (0.67-1.17); Potassium 4.6 mmol/L (3.5-5.0); eGFR CKD-EPI 39.7 (>60)
[2023-06-18] MEDS: Nystatin TOP POWDER 15 GM BTL TOPICAL SCH ×3 (10:45→21:30)
[2023-06-18] MEDS: Polyethylene Glycol 3350 17 GM PACKET PO SCH (10:50)
[2023-06-18] MEDS: Enoxaparin 100 MG/ML SYR SUBCUT SCH (10:51)
[2023-06-18] MEDS: Amoxicillin/Clavul 500/125 TAB (Augmentin 500 mg tab) PO SCH ×2 (10:53→21:35)
[2023-06-18] MEDS: Insulin GLARGINE 100 un/ml 10 ml VIAL SUBCUT SCH (10:54)
[2023-06-18] MEDS: DULoxetine DR 60 mg CAP PO SCH (11:19)
[2023-06-18] MEDS: Triamcinolone 0.025% OINT 15 GM TUBE TOPICAL SCH ×2 (11:20→21:24)
[2023-06-18] MEDS ORDERED: Vancomycin Trough Check NOTE FOLLOW UP ONE (20:30)
[2023-06-18] MEDS: Morphine 2 MG/ML SYRINGE IV PRN (21:38)
[2023-06-19 06:11] LABS: ABS Basophils 0.1 10^3/uL (0.0-0.1); ABS Eosinophils 0.8 10^3/uL (0.0-0.5); ABS Lymphocytes 1.6 10^3/uL (1.0-4.8); ABS Monocytes 0.8 10^3/uL (0.0-1.1); ABS Neutrophils 5.7 10^3/uL (1.5-7.6); ABS Nucleated RBC 0.01 10^3/ul; Eosinophil % 8.4 %; Hematocrit 22.4 % (38-53); Hemoglobin 7.5 g/dL (13.2-16.3); Lymphocyte % 18.1 %; Mean Corpuscular Hgb Conc 33.4 g/dL (31-36); Mean Corpuscular Volume 95.9 fL (80-97); Mean Platelet Volume 7.7 fL (7.5-11.2); Nucleated Red Blood Cells % 0.1 /100 WBC (0.0-0.4); Platelet Count 357 10^3/uL (150-450); Red Blood Count 2.34 10^6/uL (4.06-5.63); Red Cell Distribution Width 15.6 % (12-17)
[2023-06-19 06:21] LABS: Calcium 7.8 mg/dL (8.6-10.3); Creatinine, Serum 1.84 mg/dL (0.67-1.17); Potassium 4.6 mmol/L (3.5-5.0); eGFR CKD-EPI 36.8 (>60)
[2023-06-19] MEDS ORDERED: Lactated Ringers 1000 ml BAG 1,000 ML IV ONE (07:44)
[2023-06-19] MEDS: Amoxicillin/Clavul 500/125 TAB (Augmentin 500 mg tab) PO SCH ×2 (08:24→21:13)
[2023-06-19] MEDS: DULoxetine DR 60 mg CAP PO SCH (08:24)
[2023-06-19] MEDS: Polyethylene Glycol 3350 17 GM PACKET PO SCH (08:26)
[2023-06-19] MEDS ORDERED: Ondansetron 4 mg VIAL 2 MG/ML 2 ml VIAL ONE (10:31)
[2023-06-19] MEDS ORDERED: Propofol 10 MG/ML 20 ML BTL ONE (10:31)
[2023-06-19] MEDS ORDERED: fentaNYL 100 mcg/2 ml 50 MCG/ML VIAL ONE (10:31)
[2023-06-19] MEDS ORDERED: Lidocaine 2% PF 5 ML VIAL ONE (10:31)
[2023-06-19] MEDS ORDERED: Naloxone 0.4 mg VIAL 0.4 mg/ml 1 ml VIAL IV PRN (10:53)
[2023-06-19] MEDS ORDERED: Ondansetron 4 mg VIAL 2 MG/ML 2 ml VIAL IV PRN (10:53)
[2023-06-19] MEDS ORDERED: HYDROmorphone 1 MG/1 ML SYRINGE IV PRN (10:53)
[2023-06-19] MEDS ORDERED: Acetaminophen IV 1 GM/100ML 1,000 MG/100 ML BAG IV PRN (10:53)
[2023-06-19] MEDS ORDERED: fentaNYL 100 mcg/2 ml 50 MCG/ML VIAL IV PRN (10:53)
[2023-06-19] MEDS: Nystatin TOP POWDER 15 GM BTL TOPICAL SCH ×3 (11:45→21:21)
[2023-06-19] MEDS: Triamcinolone 0.025% OINT 15 GM TUBE TOPICAL SCH ×2 (11:45→21:21)
[2023-06-19] MEDS ORDERED: Midazolam 2 mg/2 ml VIAL 1 mg/ml 2 ml VIAL (2 mg) ONE (13:04)
[2023-06-19] MEDS: Enoxaparin 100 MG/ML SYR SUBCUT SCH (21:12)
[2023-06-20 07:23] LABS: ABS Basophils 0.1 10^3/uL (0.0-0.1); ABS Eosinophils 0.8 10^3/uL (0.0-0.5); ABS Lymphocytes 1.2 10^3/uL (1.0-4.8); ABS Monocytes 0.7 10^3/uL (0.0-1.1); ABS Neutrophils 5.8 10^3/uL (1.5-7.6); ABS Nucleated RBC 0.01 10^3/ul; Eosinophil % 9.7 %; Hematocrit 24.1 % (38-53); Hemoglobin 7.9 g/dL (13.2-16.3); Lymphocyte % 13.8 %; Mean Corpuscular Hemoglobin 31.6 pg (27-33); Mean Corpuscular Hgb Conc 32.7 g/dL (31-36); Mean Corpuscular Volume 96.7 fL (80-97); Mean Platelet Volume 7.6 fL (7.5-11.2); Nucleated Red Blood Cells % 0.1 /100 WBC (0.0-0.4); Platelet Count 402 10^3/uL (150-450); Red Cell Distribution Width 15.9 % (12-17); White Blood Count 8.6 10^3/uL (3.6-10.2)
[2023-06-20 07:37] LABS: Calcium 7.7 mg/dL (8.6-10.3); Creatinine, Serum 1.79 mg/dL (0.67-1.17); Potassium 4.9 mmol/L (3.5-5.0); eGFR CKD-EPI 38.1 (>60)
[2023-06-20] MEDS: Amoxicillin/Clavul 500/125 TAB (Augmentin 500 mg tab) PO SCH ×2 (10:01→22:01)
[2023-06-20] MEDS: Enoxaparin 100 MG/ML SYR SUBCUT SCH ×2 (10:02→22:01)
[2023-06-20] MEDS: DULoxetine DR 60 mg CAP PO SCH (10:02)
[2023-06-20] MEDS: Nystatin TOP POWDER 15 GM BTL TOPICAL SCH ×2 (10:03→13:39)
[2023-06-20] MEDS: Polyethylene Glycol 3350 17 GM PACKET PO SCH (10:15)
[2023-06-20] MEDS: Triamcinolone 0.025% OINT 15 GM TUBE TOPICAL SCH (10:15)
[2023-06-21] MEDS: Nystatin TOP POWDER 15 GM BTL TOPICAL SCH ×4 (00:15→23:51)
[2023-06-21] MEDS: Triamcinolone 0.025% OINT 15 GM TUBE TOPICAL SCH ×3 (00:15→23:49)
[2023-06-21] MEDS: Polyethylene Glycol 3350 17 GM PACKET PO SCH (09:42)
[2023-06-21] MEDS: Enoxaparin 100 MG/ML SYR SUBCUT SCH ×2 (09:42→21:29)
[2023-06-21] MEDS: DULoxetine DR 60 mg CAP PO SCH (09:45)
[2023-06-21] MEDS: Amoxicillin/Clavul 500/125 TAB (Augmentin 500 mg tab) PO SCH ×2 (09:45→21:24)
[2023-06-22 06:12] LABS: ABS Basophils 0.1 10^3/uL (0.0-0.1); ABS Eosinophils 0.7 10^3/uL (0.0-0.5); ABS Lymphocytes 1.4 10^3/uL (1.0-4.8); ABS Monocytes 0.7 10^3/uL (0.0-1.1); ABS Neutrophils 5.9 10^3/uL (1.5-7.6); Eosinophil % 8.1 %; Hematocrit 23.5 % (38-53); Hemoglobin 7.7 g/dL (13.2-16.3); Lymphocyte % 16.3 %; Mean Corpuscular Hemoglobin 31.4 pg (27-33); Mean Corpuscular Hgb Conc 32.6 g/dL (31-36); Mean Corpuscular Volume 96.5 fL (80-97); Mean Platelet Volume 7.5 fL (7.5-11.2); Platelet Count 419 10^3/uL (150-450); Red Blood Count 2.44 10^6/uL (4.06-5.63); Red Cell Distribution Width 15.9 % (12-17); White Blood Count 8.9 10^3/uL (3.6-10.2)
[2023-06-22 06:27] LABS: Calcium 7.7 mg/dL (8.6-10.3); Creatinine, Serum 1.83 mg/dL (0.67-1.17); Potassium 4.8 mmol/L (3.5-5.0); eGFR CKD-EPI 37.1 (>60)
[2023-06-22] MEDS ORDERED: Pantoprazole Packet (NF) 40 MG GRANPKT.DR PO SCH (09:00)
[2023-06-22] MEDS: Triamcinolone 0.025% OINT 15 GM TUBE TOPICAL SCH ×2 (09:57→12:01)
[2023-06-22] MEDS: Nystatin TOP POWDER 15 GM BTL TOPICAL SCH ×3 (09:57→21:42)
[2023-06-22] MEDS: Polyethylene Glycol 3350 17 GM PACKET PO SCH (09:58)
[2023-06-22] MEDS: Amoxicillin/Clavul ORALSYR 80 MG/ML (400 MG/5 ML) PO SCH ×2 (09:58→21:42)
[2023-06-22] MEDS: Enoxaparin 100 MG/ML SYR SUBCUT SCH (09:59)
[2023-06-22] MEDS: DULoxetine DR 60 mg CAP PO SCH (09:59)
[2023-06-22] MEDS ORDERED: Silver Nitrate/Potassium Nitr 1 PAK (1 PAK PER PATIENT) TOPICAL ONE (11:00)
[2023-06-23] MEDS: Triamcinolone 0.025% OINT 15 GM TUBE TOPICAL SCH ×2 (00:04→09:59)
[2023-06-23] MEDS: Amoxicillin/Clavul ORALSYR 80 MG/ML (400 MG/5 ML) PO SCH ×2 (09:50→22:06)
[2023-06-23] MEDS: Polyethylene Glycol 3350 17 GM PACKET PO SCH (09:56)
[2023-06-23] MEDS: Nystatin TOP POWDER 15 GM BTL TOPICAL SCH ×3 (09:59→22:07)
[2023-06-23] MEDS: DULoxetine DR 60 mg CAP PO SCH (10:03)
[2023-06-23 10:23] LABS: Hematocrit 23.3 % (38-53); Hemoglobin 7.6 g/dL (13.2-16.3); Mean Corpuscular Hgb Conc 32.7 g/dL (31-36); Mean Corpuscular Volume 97.9 fL (80-97); Mean Platelet Volume 7.7 fL (7.5-11.2); Platelet Count 414 10^3/uL (150-450); Red Blood Count 2.38 10^6/uL (4.06-5.63); Red Cell Distribution Width 16.7 % (12-17); White Blood Count 7.4 10^3/uL (3.6-10.2)
[2023-06-24] MEDS: Triamcinolone 0.025% OINT 15 GM TUBE TOPICAL SCH ×4 (00:20→22:15)
[2023-06-24] MEDS: Amoxicillin/Clavul ORALSYR 80 MG/ML (400 MG/5 ML) PO SCH ×2 (08:56→22:12)
[2023-06-24] MEDS: DULoxetine DR 60 mg CAP PO SCH (08:56)
[2023-06-24] MEDS: Nystatin TOP POWDER 15 GM BTL TOPICAL SCH ×3 (08:57→22:14)
[2023-06-24] MEDS: Polyethylene Glycol 3350 17 GM PACKET PO SCH (08:58)
[2023-06-25] MEDS: DULoxetine DR 60 mg CAP PO SCH (08:26)
[2023-06-25] MEDS: Amoxicillin/Clavul ORALSYR 80 MG/ML (400 MG/5 ML) PO SCH ×2 (08:26→20:31)
[2023-06-25] MEDS: Triamcinolone 0.025% OINT 15 GM TUBE TOPICAL SCH ×2 (08:28→20:29)
[2023-06-25] MEDS: Polyethylene Glycol 3350 17 GM PACKET PO SCH (08:28)
[2023-06-25] MEDS: Nystatin TOP POWDER 15 GM BTL TOPICAL SCH ×3 (08:28→20:29)
[2023-06-25 08:48] LABS: ABS Basophils 0.1 10^3/uL (0.0-0.1); ABS Eosinophils 0.7 10^3/uL (0.0-0.5); ABS Lymphocytes 1.6 10^3/uL (1.0-4.8); ABS Monocytes 0.8 10^3/uL (0.0-1.1); Eosinophil % 7.4 %; Hematocrit 23.5 % (38-53); Hemoglobin 7.7 g/dL (13.2-16.3); Lymphocyte % 17.7 %; Mean Corpuscular Hgb Conc 32.8 g/dL (31-36); Mean Corpuscular Volume 97.5 fL (80-97); Mean Platelet Volume 7.5 fL (7.5-11.2); Platelet Count 455 10^3/uL (150-450); Red Blood Count 2.41 10^6/uL (4.06-5.63); Red Cell Distribution Width 17.2 % (12-17); White Blood Count 9.3 10^3/uL (3.6-10.2)
[2023-06-25 09:04] LABS: Calcium 8.1 mg/dL (8.6-10.3); Creatinine, Serum 1.67 mg/dL (0.67-1.17); Potassium 4.7 mmol/L (3.5-5.0); eGFR CKD-EPI 41.4 (>60)
[2023-06-25] MEDS: Enoxaparin 100 MG/ML SYR SUBCUT SCH ×2 (10:20→20:31)
[2023-06-26] MEDS: Amoxicillin/Clavul ORALSYR 80 MG/ML (400 MG/5 ML) PO SCH ×2 (08:49→20:55)
[2023-06-26] MEDS: DULoxetine DR 60 mg CAP PO SCH (08:50)
[2023-06-26] MEDS: Triamcinolone 0.025% OINT 15 GM TUBE TOPICAL SCH ×2 (08:53→20:56)
[2023-06-26] MEDS: Polyethylene Glycol 3350 17 GM PACKET PO SCH (08:53)
[2023-06-26] MEDS: Nystatin TOP POWDER 15 GM BTL TOPICAL SCH ×3 (08:53→20:56)
[2023-06-26] MEDS: Enoxaparin 100 MG/ML SYR SUBCUT SCH ×2 (10:43→22:11)
[2023-06-27 06:29] LABS: ABS Basophils 0.1 10^3/uL (0.0-0.1); ABS Eosinophils 0.8 10^3/uL (0.0-0.5); ABS Monocytes 0.8 10^3/uL (0.0-1.1); ABS Neutrophils 5.2 10^3/uL (1.5-7.6); ABS Nucleated RBC 0.01 10^3/ul; Eosinophil % 9.3 %; Hemoglobin 7.5 g/dL (13.2-16.3); Lymphocyte % 21.9 %; Mean Corpuscular Hemoglobin 33.3 pg (27-33); Mean Corpuscular Hgb Conc 34.2 g/dL (31-36); Mean Corpuscular Volume 97.1 fL (80-97); Mean Platelet Volume 7.5 fL (7.5-11.2); Nucleated Red Blood Cells % 0.1 /100 WBC (0.0-0.4); Platelet Count 423 10^3/uL (150-450); Red Blood Count 2.26 10^6/uL (4.06-5.63); Red Cell Distribution Width 17.6 % (12-17); White Blood Count 8.9 10^3/uL (3.6-10.2)
[2023-06-27] MEDS: Polyethylene Glycol 3350 17 GM PACKET PO SCH (08:52)
[2023-06-27] MEDS: Amoxicillin/Clavul ORALSYR 80 MG/ML (400 MG/5 ML) PO SCH ×2 (09:08→21:07)
[2023-06-27] MEDS: DULoxetine DR 60 mg CAP PO SCH (09:09)
[2023-06-27] MEDS: Triamcinolone 0.025% OINT 15 GM TUBE TOPICAL SCH ×2 (10:03→21:08)
[2023-06-27] MEDS: Enoxaparin 100 MG/ML SYR SUBCUT SCH ×2 (10:03→21:07)
[2023-06-28 06:18] LABS: ABS Basophils 0.1 10^3/uL (0.0-0.1); ABS Eosinophils 0.7 10^3/uL (0.0-0.5); ABS Lymphocytes 1.7 10^3/uL (1.0-4.8); ABS Monocytes 0.7 10^3/uL (0.0-1.1); ABS Neutrophils 6.1 10^3/uL (1.5-7.6); ABS Nucleated RBC 0.01 10^3/ul; Eosinophil % 7.5 %; Hematocrit 23.5 % (38-53); Hemoglobin 7.8 g/dL (13.2-16.3); Lymphocyte % 18.4 %; Mean Corpuscular Hemoglobin 32.4 pg (27-33); Mean Corpuscular Hgb Conc 33.1 g/dL (31-36); Mean Corpuscular Volume 97.8 fL (80-97); Mean Platelet Volume 7.4 fL (7.5-11.2); Nucleated Red Blood Cells % 0.1 /100 WBC (0.0-0.4); Platelet Count 402 10^3/uL (150-450); Red Cell Distribution Width 17.1 % (12-17); White Blood Count 9.4 10^3/uL (3.6-10.2)
[2023-06-28 06:33] LABS: Calcium 8.4 mg/dL (8.6-10.3); Creatinine, Serum 1.9 mg/dL (0.67-1.17); Magnesium 1.7 mg/dL (1.9-2.7); Phosphorus 4.4 mg/dL (2.5-5.0); Potassium 4.6 mmol/L (3.5-5.0); eGFR CKD-EPI 35.4 (>60)
[2023-06-28] MEDS ORDERED: Magnesium Sulfate 2 gm BAG 2 GM/50 ML BAG IVPB ONE (07:29)
[2023-06-28] MEDS: Enoxaparin 100 MG/ML SYR SUBCUT SCH ×2 (08:55→20:41)
[2023-06-28] MEDS: DULoxetine DR 60 mg CAP PO SCH (08:55)
[2023-06-28] MEDS: Amoxicillin/Clavul ORALSYR 80 MG/ML (400 MG/5 ML) PO SCH ×2 (08:55→20:43)
[2023-06-28] MEDS: Polyethylene Glycol 3350 17 GM PACKET PO SCH (08:58)
[2023-06-28] MEDS: Triamcinolone 0.025% OINT 15 GM TUBE TOPICAL SCH ×2 (08:58→20:42)
[2023-06-28 11:01] LABS: C Reactive Protein 29.32 mg/L (<8.01)
[2023-06-29] MEDS: Enoxaparin 100 MG/ML SYR SUBCUT SCH ×2 (10:10→21:24)
[2023-06-29] MEDS: Amoxicillin/Clavul ORALSYR 80 MG/ML (400 MG/5 ML) PO SCH ×2 (10:10→21:24)
[2023-06-29] MEDS: Polyethylene Glycol 3350 17 GM PACKET PO SCH (10:11)
[2023-06-29] MEDS: DULoxetine DR 60 mg CAP PO SCH (10:11)
[2023-06-29] MEDS: Triamcinolone 0.025% OINT 15 GM TUBE TOPICAL SCH ×2 (10:12→21:24)
[2023-06-30 09:15] LABS: ABS Basophils 0.1 10^3/uL (0.0-0.1); ABS Eosinophils 0.6 10^3/uL (0.0-0.5); ABS Lymphocytes 1.7 10^3/uL (1.0-4.8); ABS Monocytes 0.7 10^3/uL (0.0-1.1); ABS Neutrophils 5.3 10^3/uL (1.5-7.6); ABS Nucleated RBC 0.01 10^3/ul; Eosinophil % 7.4 %; Hematocrit 25.3 % (38-53); Hemoglobin 8.2 g/dL (13.2-16.3); Lymphocyte % 20.1 %; Mean Corpuscular Hemoglobin 32.1 pg (27-33); Mean Corpuscular Hgb Conc 32.4 g/dL (31-36); Mean Corpuscular Volume 98.9 fL (80-97); Mean Platelet Volume 7.6 fL (7.5-11.2); Nucleated Red Blood Cells % 0.1 /100 WBC (0.0-0.4); Platelet Count 401 10^3/uL (150-450); Red Blood Count 2.55 10^6/uL (4.06-5.63); Red Cell Distribution Width 17.9 % (12-17); White Blood Count 8.5 10^3/uL (3.6-10.2)
[2023-06-30 09:29] LABS: Calcium 8.5 mg/dL (8.6-10.3); Creatinine, Serum 1.82 mg/dL (0.67-1.17); Potassium 4.3 mmol/L (3.5-5.0); eGFR CKD-EPI 37.3 (>60)
[2023-06-30] MEDS: Amoxicillin/Clavul ORALSYR 80 MG/ML (400 MG/5 ML) PO SCH ×2 (09:33→22:06)
[2023-06-30] MEDS: Polyethylene Glycol 3350 17 GM PACKET PO SCH (09:33)
[2023-06-30] MEDS: DULoxetine DR 60 mg CAP PO SCH (09:33)
[2023-06-30] MEDS: Triamcinolone 0.025% OINT 15 GM TUBE TOPICAL SCH ×2 (12:07→22:20)
[2023-06-30] MEDS: Enoxaparin 100 MG/ML SYR SUBCUT SCH ×2 (12:29→22:06)
[2023-07-01] MEDS: DULoxetine DR 60 mg CAP PO SCH (09:29)
[2023-07-01] MEDS: Polyethylene Glycol 3350 17 GM PACKET PO SCH (09:30)
[2023-07-01] MEDS: Enoxaparin 100 MG/ML SYR SUBCUT SCH ×2 (09:30→21:11)
[2023-07-01] MEDS: Amoxicillin/Clavul ORALSYR 80 MG/ML (400 MG/5 ML) PO SCH ×2 (09:30→21:12)
[2023-07-01] MEDS: Triamcinolone 0.025% OINT 15 GM TUBE TOPICAL SCH ×2 (16:32→21:12)
[2023-07-02] MEDS: DULoxetine DR 60 mg CAP PO SCH (08:59)
[2023-07-02] MEDS: Amoxicillin/Clavul ORALSYR 80 MG/ML (400 MG/5 ML) PO SCH ×2 (09:01→21:07)
[2023-07-02] MEDS: Polyethylene Glycol 3350 17 GM PACKET PO SCH (09:02)
[2023-07-02] MEDS: Triamcinolone 0.025% OINT 15 GM TUBE TOPICAL SCH ×2 (09:03→21:12)
[2023-07-02] MEDS: Enoxaparin 100 MG/ML SYR SUBCUT SCH ×2 (09:05→21:09)
[2023-07-03 07:54] LABS: ABS Basophils 0.1 10^3/uL (0.0-0.1); ABS Eosinophils 0.8 10^3/uL (0.0-0.5); ABS Lymphocytes 1.5 10^3/uL (1.0-4.8); ABS Monocytes 0.7 10^3/uL (0.0-1.1); ABS Neutrophils 5.3 10^3/uL (1.5-7.6); ABS Nucleated RBC 0.01 10^3/ul; Eosinophil % 9.5 %; Hematocrit 23.8 % (38-53); Hemoglobin 7.9 g/dL (13.2-16.3); Lymphocyte % 17.5 %; Mean Corpuscular Hemoglobin 32.4 pg (27-33); Mean Corpuscular Hgb Conc 33.3 g/dL (31-36); Mean Corpuscular Volume 97.1 fL (80-97); Mean Platelet Volume 7.6 fL (7.5-11.2); Nucleated Red Blood Cells % 0.1 /100 WBC (0.0-0.4); Platelet Count 339 10^3/uL (150-450); Red Blood Count 2.45 10^6/uL (4.06-5.63); Red Cell Distribution Width 17.5 % (12-17); White Blood Count 8.3 10^3/uL (3.6-10.2)
[2023-07-03 08:16] LABS: Calcium 8.2 mg/dL (8.6-10.3); Creatinine, Serum 1.82 mg/dL (0.67-1.17); Potassium 4.4 mmol/L (3.5-5.0); eGFR CKD-EPI 37.3 (>60)
[2023-07-03] MEDS: Amoxicillin/Clavul ORALSYR 80 MG/ML (400 MG/5 ML) PO SCH ×2 (09:33→22:07)
[2023-07-03] MEDS: Enoxaparin 100 MG/ML SYR SUBCUT SCH ×2 (09:33→22:08)
[2023-07-03] MEDS: DULoxetine DR 60 mg CAP PO SCH (09:34)
[2023-07-03] MEDS: Triamcinolone 0.025% OINT 15 GM TUBE TOPICAL SCH ×2 (09:35→23:09)
[2023-07-03] MEDS: Polyethylene Glycol 3350 17 GM PACKET PO SCH (09:35)
[2023-07-04] MEDS: DULoxetine DR 60 mg CAP PO SCH (09:34)
[2023-07-04] MEDS: Amoxicillin/Clavul ORALSYR 80 MG/ML (400 MG/5 ML) PO SCH ×2 (09:36→20:25)
[2023-07-04] MEDS: Enoxaparin 100 MG/ML SYR SUBCUT SCH (09:37)
[2023-07-04] MEDS: Polyethylene Glycol 3350 17 GM PACKET PO SCH (09:40)
[2023-07-04] MEDS: Triamcinolone 0.025% OINT 15 GM TUBE TOPICAL SCH ×2 (09:41→20:15)
[2023-07-05] MEDS: Polyethylene Glycol 3350 17 GM PACKET PO SCH (09:28)
[2023-07-05] MEDS: Amoxicillin/Clavul ORALSYR 80 MG/ML (400 MG/5 ML) PO SCH ×2 (09:28→20:41)
[2023-07-05] MEDS: DULoxetine DR 60 mg CAP PO SCH (09:29)
[2023-07-05] MEDS: Triamcinolone 0.025% OINT 15 GM TUBE TOPICAL SCH ×2 (09:37→20:41)
[2023-07-05] MEDS: Enoxaparin 100 MG/ML SYR SUBCUT SCH (20:41)
[2023-07-06 06:27] LABS: ABS Basophils 0.1 10^3/uL (0.0-0.1); ABS Eosinophils 0.7 10^3/uL (0.0-0.5); ABS Lymphocytes 1.7 10^3/uL (1.0-4.8); ABS Monocytes 0.5 10^3/uL (0.0-1.1); ABS Neutrophils 4.3 10^3/uL (1.5-7.6); Eosinophil % 9.3 %; Hematocrit 25.2 % (38-53); Hemoglobin 8.4 g/dL (13.2-16.3); Lymphocyte % 23.1 %; Mean Corpuscular Hemoglobin 32.7 pg (27-33); Mean Corpuscular Hgb Conc 33.4 g/dL (31-36); Mean Corpuscular Volume 97.9 fL (80-97); Mean Platelet Volume 7.2 fL (7.5-11.2); Nucleated Red Blood Cells % 0.1 /100 WBC (0.0-0.4); Platelet Count 320 10^3/uL (150-450); Red Blood Count 2.58 10^6/uL (4.06-5.63); Red Cell Distribution Width 17.4 % (12-17); White Blood Count 7.3 10^3/uL (3.6-10.2)
[2023-07-06 06:40] LABS: Calcium 8.3 mg/dL (8.6-10.3); Creatinine, Serum 1.97 mg/dL (0.67-1.17); Potassium 4.6 mmol/L (3.5-5.0); eGFR CKD-EPI 33.9 (>60)
[2023-07-06] MEDS: Enoxaparin 100 MG/ML SYR SUBCUT SCH (08:19)
[2023-07-06] MEDS: DULoxetine DR 60 mg CAP PO SCH (08:55)
[2023-07-06] MEDS: Amoxicillin/Clavul ORALSYR 80 MG/ML (400 MG/5 ML) PO SCH (08:58)
[2023-07-06] MEDS: Polyethylene Glycol 3350 17 GM PACKET PO SCH (08:58)
[2023-07-06 09:30] LABS: Rapid COVID-19 Molecular Undetected (Undetected)
[2023-07-06] MEDS: Triamcinolone 0.025% OINT 15 GM TUBE TOPICAL SCH (10:16)
[2023-07-06 14:43] VITALS: BP 130/67
== END 2023-07-06 16:15 | DRG 853 ==
LOC: ED 15:56 → SUATTDRO 19:13 → EDHOLD 19:13 → SSU 23:25 → MED 06-13 20:57
PROVIDERS: ADMIT Internal Medicine; ATTEND Hospitalist

== ENCOUNTER 2024-01-05 10:22 | Inpatient (IN) ==
[2024-01-05 11:36] LABS: ABS Lymphocytes 0.9 10^3/uL (1.0-4.8); ABS Neutrophils 11.7 10^3/uL (1.5-7.6); Eosinophil % 0.1 %; Hematocrit 24.9 % (38-53); Hemoglobin 8.1 g/dL (13.2-16.3); Lymphocyte % 6.3 %; Mean Corpuscular Hemoglobin 32.2 pg (27-33); Mean Corpuscular Hgb Conc 32.4 g/dL (31-36); Mean Corpuscular Volume 99.2 fL (80-97); Mean Platelet Volume 8.4 fL (7.5-11.2); Platelet Count 276 10^3/uL (150-450); Red Blood Count 2.51 10^6/uL (4.06-5.63); Red Cell Distribution Width 19.4 % (12-17); White Blood Count 13.6 10^3/uL (3.6-10.2)
[2024-01-05] MEDS: Piperacillin/Tazobac 3.375 BAG 3.375 GM/100 ML BAG IV ONE (11:42)
[2024-01-05] MEDS: NS 0.9% 1000 ml BAG 2,000 ML IV ONE (11:43)
[2024-01-05] MEDS: Ondansetron 4 mg VIAL 2 MG/ML 2 ml VIAL IV ONE (11:43)
[2024-01-05 11:44] LABS: Activated Partial Thrombo Time 33.7 seconds (26.0-38.0); INR 1.5 (0.83-1.13)
[2024-01-05 11:55] LABS: High Sens Troponin Baseline 96 pg/mL (<20)
[2024-01-05 11:58] LABS: Venous Bicarbonate HCO3 20.6 mmol/L (24-28)
[2024-01-05 12:13] LABS: ALT 16 U/L (7-52); Albumin 2.6 g/dL (3.2-5.2); Albumin/Globulin Ratio 0.9 (1-3); Alkaline Phosphatase 61 U/L (35-149); Anion Gap 9 mmol/L (2-16); Blood Urea Nitrogen 70 mg/dL (6-24); C Reactive Protein 171.95 mg/L (<8.01); CO2 Carbon Dioxide 22 mmol/L (22-32); Calcium 7.2 mg/dL (8.6-10.3); Chloride 111 mmol/L (101-111); Creatine Kinase 68 U/L (10-223); Creatinine, Serum 2.74 mg/dL (0.67-1.17); Globulin 2.8 g/dL (2-4); Glucose 193 mg/dL (70-100); Sodium 142 mmol/L (135-145); Total Bilirubin 0.5 mg/dL (0.2-1.0); Total Protein 5.4 g/dL (6.4-8.9); eGFR CKD-EPI 22.7 (>60)
[2024-01-05] MEDS: Vancomycin 1,750 MG in NS 0.9% 500 ml BAG 500 ML IVPB ONE (12:29)
[2024-01-05 13:05] LABS: High Sensitivity Troponin 1 Hr 68 pg/mL (<20)
[2024-01-05] MEDS ORDERED: Lidocaine 2% JELLY 6 ML Topical TOPICAL ONE (14:57)
[2024-01-05] MEDS: NS 0.9% 500 ml BAG 500 ML IV ONE (15:19)
[2024-01-05 15:47] LABS: Urine Appearance Turbid; Urine Bilirubin Negative (Negative); Urine Blood Negative (Negative); Urine Color Yellow; Urine Glucose 4+ (>=1000 mg/dL) (Negative); Urine Ketones Negative (Negative); Urine Nitrite Negative (Negative); Urine Protein 1+ (>=30 mg/dL) (Negative); Urine Specific Gravity 1.014 (1.002-1.030); Urine Urobilinogen Negative (Negative)
[2024-01-05 15:48] LABS: Urine Bacteria Absent /HPF (Absent); Urine Red Blood Cell 1+(3-5/hpf) /HPF (0-Trace); Urine White Blood Cell Trace(0-5/hpf) /HPF (0-Trace)
[2024-01-05] MEDS: fentaNYL 100 mcg/2 ml 50 MCG/ML VIAL IV SLOW PU ONE (16:40)
[2024-01-05] MEDS ORDERED: Ammonium Lactate 12% 1 APPLIC TUBE TOPICAL PRN (18:32)
[2024-01-05] MEDS ORDERED: Dextrose 50% Syringe 50 ml 25 GM/50 ML SYRINGE IV PUSH PRN (18:45)
[2024-01-05] MEDS: Lactated Ringers 1000 ml BAG 1,000 ML IV SCH (19:21)
[2024-01-05 19:39] LABS: High Sensitivity Troponin 3 Hr 78 pg/mL (<20)
[2024-01-05] MEDS: Benzocaine/Menthol LOZ PO PRN (21:56)
[2024-01-06 08:05] LABS: ABS Eosinophils 0.6 10^3/uL (0.0-0.5); ABS Lymphocytes 0.8 10^3/uL (1.0-4.8); ABS Monocytes 0.6 10^3/uL (0.0-1.1); Eosinophil % 6.2 %; Hematocrit 21.5 % (38-53); Hemoglobin 7.1 g/dL (13.2-16.3); Lymphocyte % 8.5 %; Mean Corpuscular Hemoglobin 32.4 pg (27-33); Mean Corpuscular Hgb Conc 33.1 g/dL (31-36); Mean Corpuscular Volume 98.1 fL (80-97); Mean Platelet Volume 7.8 fL (7.5-11.2); Platelet Count 222 10^3/uL (150-450); Red Blood Count 2.19 10^6/uL (4.06-5.63); Red Cell Distribution Width 18.7 % (12-17); White Blood Count 8.9 10^3/uL (3.6-10.2)
[2024-01-06 08:43] LABS: C Reactive Protein 228.91 mg/L (<8.01); Calcium 7.5 mg/dL (8.6-10.3); Creatinine, Serum 2.76 mg/dL (0.67-1.17); Magnesium 1.7 mg/dL (1.9-2.7); Potassium 4.5 mmol/L (3.5-5.0); eGFR CKD-EPI 22.5 (>60)
[2024-01-06] MEDS: DULoxetine DR 60 mg CAP PO SCH (09:20)
[2024-01-06] MEDS: Calcium Carb (TUMS) 500 mg CHEW TAB PO PRN (11:55)
[2024-01-06] MEDS ORDERED: Dextran 70/Hypromellose Tears Eye Drops 15 ml BTL (for Artificials Tears) BOTH EYES PRN (11:59)
[2024-01-06] MEDS: Magnesium Sulfate 2 gm BAG 2 GM/50 ML BAG IVPB ONE (13:46)
[2024-01-06] MEDS: Ondansetron 4 mg VIAL 2 MG/ML 2 ml VIAL IV PRN (14:55)
[2024-01-06] MEDS: Magnesium Sulfate IV 1GM/100ML 1 GM/100 ML BAG IV ONE (15:12)
[2024-01-06] MEDS: cefTRIAXone 1 gm/50 mL D5W 1 GM/50 ML BAG IV SCH (20:15)
[2024-01-06] MEDS: Azithromycin 500 mg/250 ml NS 500 MG/250 ML BAG IVPB SCH (21:01)
[2024-01-07 06:14] LABS: ABS Eosinophils 0.7 10^3/uL (0.0-0.5); ABS Lymphocytes 0.9 10^3/uL (1.0-4.8); ABS Monocytes 0.4 10^3/uL (0.0-1.1); Eosinophil % 8.6 %; Hematocrit 20.6 % (38-53); Hemoglobin 6.8 g/dL (13.2-16.3); Lymphocyte % 10.7 %; Mean Corpuscular Hemoglobin 32.2 pg (27-33); Mean Corpuscular Hgb Conc 32.9 g/dL (31-36); Mean Platelet Volume 8.4 fL (7.5-11.2); Platelet Count 214 10^3/uL (150-450); Red Cell Distribution Width 18.7 % (12-17); White Blood Count 8.1 10^3/uL (3.6-10.2)
[2024-01-07 06:27] LABS: Anion Gap 6 mmol/L (2-16); Blood Urea Nitrogen 68 mg/dL (6-24); CO2 Carbon Dioxide 24 mmol/L (22-32); Calcium 7.8 mg/dL (8.6-10.3); Chloride 107 mmol/L (101-111); Creatinine, Serum 2.73 mg/dL (0.67-1.17); Glucose 108 mg/dL (70-100); Sodium 137 mmol/L (135-145); eGFR CKD-EPI 22.8 (>60)
[2024-01-07 09:06] LABS: Albumin 2.4 g/dL (3.2-5.2); Albumin/Globulin Ratio 0.9 (1-3); Calcium 7.7 mg/dL (8.6-10.3); Creatinine, Serum 2.75 mg/dL (0.67-1.17); Globulin 2.8 g/dL (2-4); Magnesium 2.4 mg/dL (1.9-2.7); Potassium 4.3 mmol/L (3.5-5.0); Total Bilirubin 0.4 mg/dL (0.2-1.0); Total Protein 5.2 g/dL (6.4-8.9); eGFR CKD-EPI 22.6 (>60)
[2024-01-07 09:27] LABS: Ferritin 379.9 ng/mL (24-336)
[2024-01-07 09:31] LABS: Folate 7.76 ng/mL (5.90-24.80)
[2024-01-07 14:23] LABS: ABS Eosinophils 0.6 10^3/uL (0.0-0.5); ABS Lymphocytes 0.7 10^3/uL (1.0-4.8); ABS Monocytes 0.4 10^3/uL (0.0-1.1); ABS Neutrophils 5.4 10^3/uL (1.5-7.6); Eosinophil % 8.9 %; Hematocrit 21.7 % (38-53); Hemoglobin 7.1 g/dL (13.2-16.3); Lymphocyte % 9.8 %; Mean Corpuscular Hemoglobin 32.2 pg (27-33); Mean Corpuscular Hgb Conc 32.5 g/dL (31-36); Mean Corpuscular Volume 98.9 fL (80-97); Platelet Count 220 10^3/uL (150-450); Red Cell Distribution Width 18.7 % (12-17); White Blood Count 7.3 10^3/uL (3.6-10.2)
[2024-01-08 02:15] LABS: Urine Creatinine Concentration 39.29 mg/dL (20.00-370.00)
[2024-01-08 06:25] LABS: Hematocrit 24.3 % (38-53); Hemoglobin 8.1 g/dL (13.2-16.3); Mean Corpuscular Hemoglobin 30.9 pg (27-33); Mean Corpuscular Hgb Conc 33.4 g/dL (31-36); Mean Corpuscular Volume 92.6 fL (80-97); Mean Platelet Volume 8.3 fL (7.5-11.2); Platelet Count 233 10^3/uL (150-450); Red Blood Count 2.62 10^6/uL (4.06-5.63); Red Cell Distribution Width 22.8 % (12-17); White Blood Count 7.4 10^3/uL (3.6-10.2)
[2024-01-08 06:41] LABS: Calcium 7.3 mg/dL (8.6-10.3); Creatinine, Serum 2.61 mg/dL (0.67-1.17); Potassium 4.3 mmol/L (3.5-5.0); eGFR CKD-EPI 24.1 (>60)
[2024-01-08 07:59] LABS: ABS Eosinophils 0.6 10^3/uL (0.0-0.5); ABS Lymphocytes 0.9 10^3/uL (1.0-4.8); ABS Monocytes 0.5 10^3/uL (0.0-1.1); ABS Neutrophils 5.3 10^3/uL (1.5-7.6); ABS Nucleated RBC 0.01 10^3/ul; Anisocytosis 2+; Eosinophil % 8.8 %; Lymphocyte % 12.3 %; Nucleated Red Blood Cells % 0.1 %/100WBC (0.0-0.8)
[2024-01-09 06:19] LABS: Hemoglobin 8.2 g/dL (13.2-16.3); Mean Corpuscular Hemoglobin 30.8 pg (27-33); Mean Corpuscular Hgb Conc 32.7 g/dL (31-36); Mean Corpuscular Volume 94.1 fL (80-97); Platelet Count 241 10^3/uL (150-450); Red Blood Count 2.65 10^6/uL (4.06-5.63); Red Cell Distribution Width 22.6 % (12-17); White Blood Count 8.7 10^3/uL (3.6-10.2)
[2024-01-09 06:32] LABS: ABS Eosinophils 0.6 10^3/uL (0.0-0.5); ABS Lymphocytes 1.1 10^3/uL (1.0-4.8); ABS Monocytes 0.7 10^3/uL (0.0-1.1); ABS Neutrophils 6.3 10^3/uL (1.5-7.6); Eosinophil % 6.7 %; Lymphocyte % 12.2 %
[2024-01-09 06:40] LABS: Calcium 7.3 mg/dL (8.6-10.3); Creatinine, Serum 2.87 mg/dL (0.67-1.17); Potassium 4.1 mmol/L (3.5-5.0); eGFR CKD-EPI 21.5 (>60)
[2024-01-10 06:39] LABS: ABS Basophils 0.1 10^3/uL (0.0-0.1); ABS Eosinophils 0.8 10^3/uL (0.0-0.5); ABS Lymphocytes 1.4 10^3/uL (1.0-4.8); ABS Monocytes 0.6 10^3/uL (0.0-1.1); ABS Neutrophils 4.9 10^3/uL (1.5-7.6); ABS Nucleated RBC 0.01 10^3/ul; Hematocrit 25.8 % (38-53); Hemoglobin 8.6 g/dL (13.2-16.3); Lymphocyte % 17.9 %; Mean Corpuscular Hemoglobin 31.3 pg (27-33); Mean Corpuscular Hgb Conc 33.3 g/dL (31-36); Mean Platelet Volume 8.1 fL (7.5-11.2); Nucleated Red Blood Cells % 0.2 %/100WBC (0.0-0.8); Platelet Count 250 10^3/uL (150-450); Red Blood Count 2.75 10^6/uL (4.06-5.63); Red Cell Distribution Width 22.1 % (12-17); White Blood Count 7.8 10^3/uL (3.6-10.2)
[2024-01-10 07:03] LABS: Albumin 2.5 g/dL (3.2-5.2); Albumin/Globulin Ratio 0.9 (1-3); Calcium 7.9 mg/dL (8.6-10.3); Creatinine, Serum 2.77 mg/dL (0.67-1.17); Globulin 2.8 g/dL (2-4); Potassium 4.3 mmol/L (3.5-5.0); Total Bilirubin 0.3 mg/dL (0.2-1.0); Total Protein 5.3 g/dL (6.4-8.9); eGFR CKD-EPI 22.4 (>60)
[2024-01-10] MEDS: Clotrimazole 1% CREAM 30 gm TOPICAL SCH (14:53)
[2024-01-11 09:26] LABS: Hematocrit 26.2 % (38-53); Hemoglobin 8.6 g/dL (13.2-16.3); Mean Corpuscular Hemoglobin 30.8 pg (27-33); Mean Corpuscular Hgb Conc 32.7 g/dL (31-36); Mean Corpuscular Volume 94.1 fL (80-97); Mean Platelet Volume 8.1 fL (7.5-11.2); Platelet Count 278 10^3/uL (150-450); Red Blood Count 2.78 10^6/uL (4.06-5.63); White Blood Count 8.4 10^3/uL (3.6-10.2)
[2024-01-11 10:02] LABS: Calcium 7.9 mg/dL (8.6-10.3); Creatinine, Serum 2.84 mg/dL (0.67-1.17); Potassium 4.3 mmol/L (3.5-5.0); eGFR CKD-EPI 21.7 (>60)
[2024-01-11 10:13] LABS: ABS Basophils 0.1 10^3/uL (0.0-0.1); ABS Eosinophils 0.9 10^3/uL (0.0-0.5); ABS Lymphocytes 1.4 10^3/uL (1.0-4.8); ABS Monocytes 0.6 10^3/uL (0.0-1.1); ABS Neutrophils 5.4 10^3/uL (1.5-7.6); ABS Nucleated RBC 0.01 10^3/ul; Eosinophil % 10.4 %; Lymphocyte % 17.1 %; Nucleated Red Blood Cells % 0.1 %/100WBC (0.0-0.8)
[2024-01-12 07:06] LABS: ABS Basophils 0.1 10^3/uL (0.0-0.1); ABS Eosinophils 0.9 10^3/uL (0.0-0.5); ABS Lymphocytes 1.5 10^3/uL (1.0-4.8); ABS Monocytes 0.6 10^3/uL (0.0-1.1); ABS Neutrophils 6.2 10^3/uL (1.5-7.6); ABS Nucleated RBC 0.01 10^3/ul; Eosinophil % 9.9 %; Hematocrit 25.1 % (38-53); Hemoglobin 8.4 g/dL (13.2-16.3); Lymphocyte % 16.2 %; Mean Corpuscular Hgb Conc 33.4 g/dL (31-36); Mean Corpuscular Volume 92.9 fL (80-97); Mean Platelet Volume 7.9 fL (7.5-11.2); Nucleated Red Blood Cells % 0.1 %/100WBC (0.0-0.8); Platelet Count 280 10^3/uL (150-450); Red Cell Distribution Width 21.3 % (12-17); White Blood Count 9.3 10^3/uL (3.6-10.2)
[2024-01-12 07:24] LABS: Calcium 8.3 mg/dL (8.6-10.3); Creatinine, Serum 2.61 mg/dL (0.67-1.17); Potassium 4.8 mmol/L (3.5-5.0); eGFR CKD-EPI 24.1 (>60)
[2024-01-12] MEDS: Insulin GLARGINE 100 un/ml 10 ml VIAL SUBCUT SCH (22:32)
[2024-01-13 07:11] LABS: Hematocrit 24.6 % (38-53); Mean Corpuscular Hemoglobin 30.6 pg (27-33); Mean Corpuscular Hgb Conc 32.6 g/dL (31-36); Mean Platelet Volume 7.9 fL (7.5-11.2); Platelet Count 281 10^3/uL (150-450); Red Blood Count 2.62 10^6/uL (4.06-5.63); Red Cell Distribution Width 21.8 % (12-17); White Blood Count 8.8 10^3/uL (3.6-10.2)
[2024-01-13 07:50] LABS: Anion Gap 8 mmol/L (2-16); Blood Urea Nitrogen 52 mg/dL (6-24); CO2 Carbon Dioxide 26 mmol/L (22-32); Chloride 109 mmol/L (101-111); Creatinine, Serum 2.71 mg/dL (0.67-1.17); Glucose 209 mg/dL (70-100); Magnesium 1.8 mg/dL (1.9-2.7); Sodium 143 mmol/L (135-145)
[2024-01-13 09:04] LABS: Phosphorus 4.1 mg/dL (2.5-5.0); Potassium Redraw 4.7 mmol/L (3.5-5.0)
[2024-01-14 05:50] VITALS: BP 155/74
[2024-01-14 08:57] LABS: Rapid COVID-19 Molecular Undetected (Undetected)
== END 2024-01-14 10:36 | DRG 871 ==
LOC: ED 10:22 → SUATTDRO 16:01 → EDHOLD 16:01 → MEDTELE 16:38
PROVIDERS: ADMIT Internal Medicine; ATTEND Internal Medicine